=== PATIENT | female | born 1955 | race Hispanic/Latino ===

== ENCOUNTER 2019-04-13 12:03 | Inpatient (IN) | payer MEDICARE ==
[2019-04-13] MEDS ORDERED: MAGNESIUM SULFATE 2 GM/50 ML BAG IV ONE (12:57)
[2019-04-13] MEDS ORDERED: IPRATROPIUM 0.02% NEBU 2.5 ML IH ONE (12:57)
[2019-04-13] MEDS ORDERED: methylPREDNISolone Sod Succinate 125 MG/2 ML INJ IV ONE (12:57)
[2019-04-13] MEDS ORDERED: ALBUTEROL 2.5 MG/3 ML NEBU IH ONE ×2 (12:57→18:34)
--- NOTE | 2019-04-13 13:00 | Emergency Department Report ---
ED General Adult HPI - General Chief complaint: Dyspnea/Respdistress Stated complaint: JAY Time Seen by Provider: 04/13/19 12:43 Source: patient, EMS ( EMS documentation not available at time of chart dictation ), RN notes reviewed, old records reviewed Mode of arrival: Stretcher Limitations: Physical Limitation - History of Present Illness Initial comments: Pulmonology: Dr. Santoyo The patient is a 63-year-old female. She has a history of chronic respiratory failure. Her past medical history also includes mild coronary artery disease, demonstrated on 2014, chronic respiratory failure. She is brought to the hospital by parents medical services for painless worsening of shortness of breath. The patient reports that it feels like her COPD is being exacerbated. She denies physical pain. She requested to be transported to [facility], but was transported here by emergency medical services. The patient states that she had a near- experience of this hospital and that she does not want to be admitted to this hospital. She states that in the past she always goes to [facility]. Arterial blood gas demonstrated respiratory acidosis, hypercarbia, and hypoxemia. The patient gave verbal permission to discuss the details of her case with her son Shay De Los Santos Explained to patient and son that I would not deem the patient stable/suitable for medical transport at this time, as she is on positive pressure ventilation, and has a respiratory acidosis with hypercarbia. I advised both the patient and her son that we do have pulmonary and critical care consultative services available at this hospital, and that her pulmonology group does have privileges at this hospital. I further advised that there is no medical indication for transportation, and advised that the patient and her son that if they wanted to be discharged, they would have to be discharged AGAINST MEDICAL ADVICE, and be transferred to the aforementioned hospital by private vehicle. Patient and son both alert and oriented, sober, and exhibited decision making capacity at this time. Patient is able to endorse risks in her own words, and does not appear to be altered or obtunded. This conversation is witnessed by RT E[place] -: Gradual Improves with: rest Associated Symptoms: cough, shortness of breath, weakness - Related Data Home Medications Medication Instructions Recorded Confirmed Last Taken ALBUTEROL Inhaler (OR & NICU) 2 puff IH Q4H PRN 02/19/14 04/13/19 02/19/14 [ProAir HFA Inhaler] Albuterol Sulfate [Albuterol 0.63% 3 ml IH PRN PRN 02/19/14 04/13/19 07/12/14 NEBS] Aspirin [Aspirin BABY CHEW TAB] 81 mg PO DAILY 02/19/14 04/13/19 07/11/14 Atorvastatin (Nf) [Lipitor] 10 mg PO QHS 02/19/14 04/13/19 07/11/14 Budesoni/Formotero 160-4.5(Nf) 2 puff IH BID 02/19/14 04/13/19 02/19/14 [Symbicort 160-4.5 (Nf)] Metoprolol [Lopressor TAB] 1.5 tab PO BID 02/19/14 04/13/19 02/19/14 Mirtazapine 15 mg PO QHS 02/19/14 04/13/19 02/18/14 Multivitamin [Multi-Vitamin Daily] 1 tab PO DAILY 02/19/14 04/13/19 07/11/14 Celexa 40 mg PO DAILY 04/13/19 04/13/19 Unknown Thiamine 100 mg PO BID 04/13/19 04/13/19 Unknown guaiFENesin 1,200 mg PO BID 04/13/19 04/13/19 Unknown Allergies Allergy/AdvReac Type Severity Reaction Status Date / Time carisoprodol [From Soma] Allergy Rash Verified 07/12/14 18:17 ED Review of Systems ROS: Stated complaint: JAY Other details as noted in HPI Constitutional: malaise ENT: congestion Respiratory: cough, shortness of breath, wheezing Cardiovascular: denies: syncope Gastrointestinal: denies: abdominal pain Neurological: weakness Psychiatric: anxiety ED Past Medical Hx - Past Medical History Previous Medical History?: Yes Hx Hypertension: Yes Hx Heart Attack/AMI: No Hx Congestive Heart Failure: No Hx Diabetes: No Hx Deep Vein Thrombosis: No Hx Pulmonary Embolism: No Hx Asthma: Yes Hx COPD: Yes Hx Tuberculosis: No Hx HIV: No - Surgical History Past Surgical History?: Yes Hx Coronary Stent: No Hx Pacemaker: No Hx Internal Defibrillator: No Hx Cholecystectomy: Yes Hx Breast Surgery: Yes Additional Surgical History: hysterectomy - Social History Smoking Status: Never Smoker Substance Use Type: None - Medications Home Medications: Home Medications Medication Instructions Recorded Confirmed Last Taken Type ALBUTEROL Inhaler (OR & NICU) 2 puff IH Q4H PRN 02/19/14 04/13/19 02/19/14 History [ProAir HFA Inhaler] Albuterol Sulfate [Albuterol 0.63% 3 ml IH PRN PRN 02/19/14 04/13/19 07/12/14 History NEBS] Aspirin [Aspirin BABY CHEW TAB] 81 mg PO DAILY 02/19/14 04/13/19 07/11/14 History Atorvastatin (Nf) [Lipitor] 10 mg PO QHS 02/19/14 04/13/19 07/11/14 History Budesoni/Formotero 160-4.5(Nf) 2 puff IH BID 02/19/14 04/13/19 02/19/14 History [Symbicort 160-4.5 (Nf)] Metoprolol [Lopressor TAB] 1.5 tab PO BID 02/19/14 04/13/19 02/19/14 History Mirtazapine 15 mg PO QHS 02/19/14 04/13/19 02/18/14 History Multivitamin [Multi-Vitamin Daily] 1 tab PO DAILY 02/19/14 04/13/19 07/11/14 History Celexa 40 mg PO DAILY 04/13/19 04/13/19 Unknown History Thiamine 100 mg PO BID 04/13/19 04/13/19 Unknown History guaiFENesin 1,200 mg PO BID 04/13/19 04/13/19 Unknown History ED Physical Exam - General Limitations: Physical Limitation General appearance: alert, anxious, in distress, obese - Head Head exam: Present: atraumatic, normocephalic - Eye Eye exam: Present: normal appearance, EOMI Pupils: Absent: unequal - ENT ENT exam: Present: normal exam, normal orophraynx, mucous membranes moist, normal external ear exam - Neck Neck exam: Present: normal inspection, full ROM. Absent: tenderness, meningismus - Respiratory Respiratory exam: Present: respiratory distress, wheezes, rhonchi - Cardiovascular Cardiovascular Exam: Present: regular rate, normal rhythm, normal heart sounds. Absent: bradycardia, tachycardia, irregular rhythm, systolic murmur, diastolic murmur, rubs, gallop - GI/Abdominal GI/Abdominal exam: Present: soft. Absent: distended, tenderness, guarding, rebound, rigid, pulsatile mass - Extremities Exam Extremities exam: Present: normal inspection, full ROM, other (2+ pulses noted in the bilateral upper extremities. 2+ pulses noted in the bilateral lower extremities. There is no long bony tenderness. Muscular compartments are soft.). Absent: calf tenderness - Back Exam Back exam: Present: normal inspection. Absent: tenderness, CVA tenderness (R), CVA tenderness (L), paraspinal tenderness - Neurological Exam Neurological exam: Present: alert, oriented X3, other (there is no facial droop. The tongue is midline. The extraocular movements are intact bilaterally. There is 5 out of 5 strength in the bilateral upper and lower extremities.) - Psychiatric Psychiatric exam: Present: anxious - Skin Skin exam: Present: warm, dry, intact, normal color. Absent: rash ED Course Vital Signs 04/13/19 04/13/19 04/13/19 12: 12:27 12:56 Temperature 98.2 F Pulse Rate 96 H 92 H Pulse Rate [ Anterior Bilateral Throughout] Respiratory 16 28 H Rate Respiratory Rate [Anterior Bilateral Throughout] Blood Pressure 153/95 Blood Pressure 138/70 [Left] O2 Sat by Pulse 96 97 96 Oximetry 04/13/19 04/13/19 04/13/19 15:54 16:16 16:36 Temperature Pulse Rate 97 H 87 Pulse Rate [ Anterior Bilateral Throughout] Respiratory 16 19 Rate Respiratory Rate [Anterior Bilateral Throughout] Blood Pressure 134/63 116/67 Blood Pressure 125/76 [Left] O2 Sat by Pulse 96 96 95 Oximetry 04/13/19 04/13/19 04/13/19 16:45 17:00 17:15 Temperature Pulse Rate Pulse Rate [ Anterior Bilateral Throughout] Respiratory Rate Respiratory Rate [Anterior Bilateral Throughout] Blood Pressure 113/61 113/61 105/56 Blood Pressure [Left] O2 Sat by Pulse 97 95 97 Oximetry 04/13/19 04/13/19 04/13/19 17:22 17:30 17:45 Temperature Pulse Rate 95 H Pulse Rate [ Anterior Bilateral Throughout] Respiratory 16 Rate Respiratory Rate [Anterior Bilateral Throughout] Blood Pressure 105/56 133/63 Blood Pressure 105/56 [Left] O2 Sat by Pulse 96 95 96 Oximetry 04/13/19 04/13/19 04/13/19 18:00 18:15 18:30 Temperature Pulse Rate Pulse Rate [ Anterior Bilateral Throughout] Respiratory Rate Respiratory Rate [Anterior Bilateral Throughout] Blood Pressure 133/63 141/68 141/68 Blood Pressure [Left] O2 Sat by Pulse 96 97 98 Oximetry 04/13/19 04/13/19 04/13/19 18:33 18:46 19:00 Temperature Pulse Rate Pulse Rate [ 89 Anterior Bilateral Throughout] Respiratory Rate Respiratory 24 Rate [Anterior Bilateral Throughout] Blood Pressure 116/55 146/94 Blood Pressure [Left] O2 Sat by Pulse 95 96 Oximetry 04/13/19 04/13/19 04/13/19 19:15 19:21 19:30 Temperature Pulse Rate 85 Pulse Rate [ Anterior Bilateral Throughout] Respiratory 21 Rate Respiratory Rate [Anterior Bilateral Throughout] Blood Pressure 123/64 116/59 123/64 Blood Pressure [Left] O2 Sat by Pulse 97 97 97 Oximetry 04/13/19 04/13/19 04/13/19 19:45 20:00 20:15 Temperature Pulse Rate Pulse Rate [ Anterior Bilateral Throughout] Respiratory Rate Respiratory Rate [Anterior Bilateral Throughout] Blood Pressure 128/78 128/78 125/61 Blood Pressure [Left] O2 Sat by Pulse 96 96 98 Oximetry 04/13/19 04/13/19 04/13/19 20:36 20:46 21:00 Temperature Pulse Rate Pulse Rate [ Anterior Bilateral Throughout] Respiratory Rate Respiratory Rate [Anterior Bilateral Throughout] Blood Pressure 141/68 129/62 122/59 Blood Pressure [Left] O2 Sat by Pulse 99 97 97 Oximetry 04/13/19 04/13/19 04/13/19 21:15 21:30 21:40 Temperature Pulse Rate Pulse Rate [ Anterior Bilateral Throughout] Respiratory Rate Respiratory Rate [Anterior Bilateral Throughout] Blood Pressure 112/61 122/56 122/56 Blood Pressure [Left] O2 Sat by Pulse 97 98 99 Oximetry - Reevaluation(s) Reevaluation #1: 04/13/19 13:50 Differential diagnosis, including but not limited to: COPD, bronchitis, pneumonia, hypercapnic respiratory failure Assessment and plan: 63-year-old female with known chronic respiratory failure, with probable underlying exacerbation of her chronic medical conditions. She is afebrile and protecting her airway at this time. Patient alert and oriented, and exhibits decision-making capacity. We have strongly recommended admission to this hospital. We have strongly advised against transfer given need for positive pressure ventilation, and hypercarbia. Patient and son at this time have indicated that they will likely leave AGAINST MEDICAL ADVICE. Patient is amenable to BiPAP, albuterol, Atrovent, steroids, magnesium, EKG, chest x-ray, and screening laboratory studies. Reevaluation #2: 04/13/19 13:58 Extensive review discussion had with patient and son. They are now amenable to hospitalization at this facility. Reevaluation #3: 04/13/19 14:57 labs reviewed feels improved Dr Ford to admit - Consultations Consultation #1: 04/13/19 13:58 Dr Filomena Oliva to follow in consultation ED Medical Decision Making - Lab Data Result diagrams: 04/14/19 04:43 04/14/19 04:43 Vital Signs 04/13/19 04/13/19 12:19 12:27 Temperature 98.2 F Pulse Rate 96 H Respiratory 16 Rate Blood Pressure 138/70 [Left] O2 Sat by Pulse 96 97 Oximetry - Radiology Data Radiology results: image reviewed interpreted by me: xr chest within normal limits Critical Care Time: Yes Critical care time in (mins) excluding proc time.: 35 Critical care attestation.: If time is entered above; I have spent that time in minutes in the direct care of this critically ill patient, excluding procedure time. ED Disposition Clinical Impression: Acute hypercapnic respiratory failure Acute and chronic respiratory failure ([id number]) Qualifiers: Respiratory failure complication: unspecified whether with hypoxia or hypercapnia Qualified Code(s): J96.20 - Acute and chronic respiratory failure, unspecified whether with hypoxia or hypercapnia Disposition: -09 OP ADMIT IP TO THIS HOSP Is pt being admited?: Yes Condition: Serious
--- NOTE | 2019-04-13 13:56 | XRay Report ---
CHEST 1 VIEW INDICATION: Dyspnea. COMPARISON: None FINDINGS: Support devices: None. Heart: Within normal limits. Lungs/Pleura: No acute air space or interstitial disease. Additional findings: None. IMPRESSION: No acute findings. Signer Name: Cameron Marcum Jr, MD Signed: 04/13/2019 1:51 PM Workstation Name: [id number]
[2019-04-13] MEDS ORDERED: SODIUM CHLORIDE 0.9% 500 ML 500 ML IV ONE (13:57)
[2019-04-13 14:27] LABS: Hemoglobin 10.8 gm/dl (10.1-14.3); Mean Corpuscular HGB Conc 32 % (30-34); Mean Corpuscular Volume 85 fl (79-97); Platelet Count 275 K/mm3 (140-440); Red Blood Count 4.01 M/mm3 (3.65-5.03); Red Cell Distribution Width 16.9 % (13.2-15.2)
[2019-04-13 14:43] LABS: INR 0.92 (0.87-1.13)
[2019-04-13 14:45] LABS: Partial Thromboplastin Time 34.1 Sec. (24.2-36.6)
[2019-04-13 14:49] LABS: BUN/Creatinine Ratio 20; Blood Urea Nitrogen 16 mg/dL (7-17); Calcium 9.1 mg/dL (8.4-10.2); Hemolysis Index 1
[2019-04-13 14:57] LABS: Band Neutrophils # (Manual) 0.4 K/mm3; Total Cells Counted 100
[2019-04-13 14:58] LABS: Anisocytosis 1+; Platelet Estimate Consistent w Auto; Poikilocytosis 1+; Stomatocytes 1+
--- NOTE | 2019-04-13 15:01 | History and Physical Report ---
History of Present Illness Chief complaint: I cant breathe History of present illness: 63 YO Female with Obesity Hypoventilation, Chronic Respiratory Failure, CAD, HTN presents to ED for evaluation. Pt is currently on NIPPV at time of my exam and is unable to provide history. Pt is unable to speak in complete sentences, and is using accessory muscles to breathe. Pt son is at bedside and provides history. As per son, the patient has experienced shortness of breath over the past 3 days with progressively worsening symptoms over the same time frame. Pt son acknowledges increased nonproductive cough, increased nebulizer therapy without relief in symptoms. EMS notified, and upon arrival the patient was found to be in distress and transported to [facility]. Pt seen and evaluated in ED and found to have Acute on Chronic respiratory Failure suspected secondary to COPD exacerbation. Pt symptoms not improved with supplemental oxygen, and nebulizer therapy. Pt placed on NIPPV. Pt placed in observation status and admitted to IMCU. NO prior admission for review. All medication listed at time of admission has been reconciled. Past History Past Surgical History: cholecystectomy, hysterectomy, Other (Breast surgery) Social history: . denies: smoking, alcohol abuse, prescription drug abuse Family history: hypertension Medications and Allergies Allergies Allergy/AdvReac Type Severity Reaction Status Date / Time carisoprodol [From Soma] Allergy Rash Verified 07/12/14 18:17 Home Medications Medication Instructions Recorded Confirmed Last Taken Type ALBUTEROL Inhaler (OR & NICU) 2 puff IH Q4H PRN 02/19/14 04/13/19 02/19/14 History [ProAir HFA Inhaler] Albuterol Sulfate [Albuterol 0.63% 3 ml IH PRN PRN 02/19/14 04/13/19 07/12/14 History NEBS] Aspirin [Aspirin BABY CHEW TAB] 81 mg PO DAILY 02/19/14 04/13/19 07/11/14 History Atorvastatin (Nf) [Lipitor] 10 mg PO QHS 02/19/14 04/13/19 07/11/14 History Budesoni/Formotero 160-4.5(Nf) 2 puff IH BID 02/19/14 04/13/19 02/19/14 History [Symbicort 160-4.5 (Nf)] Metoprolol [Lopressor TAB] 1.5 tab PO BID 1004/13/19 02/19/14 History Mirtazapine 15 mg PO QHS 02/19/14 04/13/19 02/18/14 History Multivitamin [Multi-Vitamin Daily] 1 tab PO DAILY 02/19/14 04/13/19 07/11/14 History Celexa 40 mg PO DAILY 04/13/19 04/13/19 Unknown History Thiamine 100 mg PO BID 04/13/19 04/13/19 Unknown History guaiFENesin 1,200 mg PO BID 04/13/19 04/13/19 Unknown History Review of Systems Constitutional: no weight loss, no weight gain, no fever, no chills Ears, nose, mouth and throat: no ear pain, no ear discharge, no tinnitis, no decreased hearing, no nose pain, no nasal congestion Breasts: no change in shape, no swelling, no mass Cardiovascular: no chest pain, no orthopnea, no palpitations, no rapid/irregular heart beat, no edema Respiratory: cough, shortness of breath, no hemoptysis, no dyspnea on exertion, no wheezing Gastrointestinal: no nausea, no vomiting, no diarrhea, no constipation Genitourinary Female: no pelvic pain, no flank pain, no menorrhagia, no dysuria, no urinary frequency, no urgency Rectal: no pain, no incontinence, no bleeding Integumentary: no pruritis, no redness, no sores, no wounds, no jaundice Neurological: no transient paralysis, no weakness, no numbness Psychiatric: no anxiety, no memory loss, no sleep disturbances Endocrine: no cold intolerance, no heat intolerance, no excessive thirst, no polydipsia, no polyuria Hematologic/Lymphatic: no easy bruising, no easy bleeding, no lymphadenopathy, no lymphedema Allergic/Immunologic: no urticaria, no allergic rhinitis, no wheezing, no persistent infections, no angioedema Exam - Constitutional Vitals: Temp Pulse Resp BP Pulse Ox 98.2 F 92 H 28 H 153/95 96 04/13/19 12:19 04/13/19 12:56 04/13/19 12:56 04/13/19 12:56 04/13/19 12:56 General appearance: Present: mild distress, obese - EENT Eyes: Present: PERRL ENT: hearing intact, clear oral mucosa - Neck Neck: Present: supple, normal ROM - Respiratory Respiratory effort: normal Respiratory: bilateral: diminished, rhonchi - Cardiovascular Heart Sounds: Present: S1 & S2. Absent: rub, click - Extremities Extremities: pulses symmetrical, No edema Peripheral Pulses: within normal limits - Abdominal General gastrointestinal: Present: soft, non-tender, non-distended, normal bowel sounds Female genitourinary: Present: normal - Integumentary Integumentary: Present: clear, warm, dry - Musculoskeletal Musculoskeletal: gait normal, strength equal bilaterally - Psychiatric Psychiatric: appropriate mood/affect, intact judgment & insight - Neurologic Neurologic: CNII-XII intact, moves all extremities Results - Labs CBC & Chem 7: 04/13/19 14:10 04/13/19 14:10 Labs: Abnormal lab results 04/13/19 04/13/19 04/13/19 Range/Units 12:47 14:10 14:10 WBC 13.7 H (4.5-11.0) K/mm3 MCH 27 L (28-32) pg RDW 16.9 H (13.2-15.2) % Seg Neuts % (Manual) 88.0 H (40.0-70.0) % Lymphocytes % (Manual) 2.0 L (13.4-35.0) % Seg Neutrophils # Man 12.1 H (1.8-7.7) K/mm3 Lymphocytes # (Manual) 0.3 L (1.2-5.4) K/mm3 POC ABG pH 7.313 L (7.35-7.45) POC ABG pO2 70 L (80-105) Chloride 93.6 L (98-107) mmol/L Carbon Dioxide 33 H (22-30) mmol/L Glucose 182 H (65-100) mg/dL Magnesium 2.90 H (1.7-2.3) mg/dL Assessment and Plan - Patient Problems (1) Acute and chronic respiratory failure ([id number]) Current Visit: Yes Status: Acute Qualifiers: Respiratory failure complication: unspecified whether with hypoxia or hypercapnia Qualified Code(s): J96.20 - Acute and chronic respiratory failure, unspecified whether with hypoxia or hypercapnia Plan to address problem: Admit to IMCU, chest x ray, pulse oximetry, NIPPV, hold beta jose alberto therapy, nebulizer therapy, (2) COPD exacerbation Current Visit: Yes Status: Acute Plan to address problem: IV antibiotic therapy, IV steroid therapy, pulse oximetry, nebulizer therapy, (3) Obesity hypoventilation syndrome Current Visit: Yes Status: Acute Plan to address problem: Chest x ray, pulse oximetry, nebulizer therapy, balanced diet, increased physical activity at discharge. (4) HTN (hypertension) Current Visit: Yes Status: Acute Qualifiers: Hypertension type: essential hypertension Qualified Code(s): I10 - Essential (primary) hypertension Plan to address problem: Monitor bp q shift, continue medical management. (5) DVT prophylaxis Current Visit: No Status: Acute Plan to address problem: SCD to BLE while in bed, supportive care, prophylactic heparin
[2019-04-13] MEDS ORDERED: ALBUTEROL 2.5 MG/3 ML NEBU IH PRN (15:02)
[2019-04-13] MEDS ORDERED: BUDESONIDE 0.5 MG/2 ML NEBU IH ONE (15:28)
[2019-04-13] MEDS ORDERED: LORazepam 2 MG/ML VIAL ONE (16:05)
[2019-04-13] MEDS ORDERED: LORazepam 2 MG/ML VIAL IV ONE (16:10)
[2019-04-13 21:41] LABS: ABG Base Excess 9.1 mmol/L (-2.0-3.0); ABG HCO3 37.2 mmol/L (20.0-26.0); ABG Methemoglobin 0.6 % (0.0-1.5); ABG Oxygen Saturation 97.7 % (95.0-99.0); ABG PCO2 71.7 mm Hg; ABG PH 7.333 pH Units (7.350-7.450); ABG PO2 113.9 mm Hg (80.0-90.0)
[2019-04-13] MEDS ORDERED: GUAIFENESIN 1200 MG PO SCH (22:00)
[2019-04-13] MEDS ORDERED: NON-FORMULARY EACH (Budesoni/Formotero 160-4.5(Nf) 2 PUFF) IH SCH (22:00)
[2019-04-13] MEDS ORDERED: THIAMINE 100 MG PO SCH (22:00)
[2019-04-13] MEDS: guaiFENesin ER 600 MG TAB PO SCH (23:46)
[2019-04-13] MEDS: THIAMINE 100 MG TAB PO SCH (23:47)
[2019-04-13] MEDS: MIRTAZAPINE 15 MG TAB PO SCH (23:47)
[2019-04-13] MEDS: methylPREDNISolone Sod Succinate 40 MG/1 ML INJ IV SCH (23:47)
[2019-04-14] MEDS: ARFORMOTEROL 15 MCG/2 ML NEBU IH SCH ×3 (00:01→21:01)
[2019-04-14] MEDS: BUDESONIDE 0.5 MG/2 ML NEBU IH SCH ×3 (00:01→21:01)
[2019-04-14] MEDS: LORazepam 2 MG/ML VIAL IV PRN ×2 (00:27→15:29)
[2019-04-14 05:08] LABS: Hematocrit 31.1 % (30.3-42.9); Hemoglobin 10.1 gm/dl (10.1-14.3); Mean Corpuscular HGB Conc 32 % (30-34); Mean Corpuscular Volume 85 fl (79-97); Platelet Count 272 K/mm3 (140-440); Red Blood Count 3.67 M/mm3 (3.65-5.03); Red Cell Distribution Width 16.7 % (13.2-15.2)
[2019-04-14 05:22] LABS: BUN/Creatinine Ratio 22; Blood Urea Nitrogen 13 mg/dL (7-17); Calcium 8.6 mg/dL (8.4-10.2); Hemolysis Index 2
[2019-04-14 06:10] LABS: Basophils % (Manual) 0 % (0.0-1.8); Eosinophils % (Manual) 0 % (0.0-4.3); Monocytes % (Manual) 0 % (0.0-7.3); Total Cells Counted 100
[2019-04-14 06:11] LABS: Anisocytosis Few; Ovalocytes Few; Platelet Estimate Consistent w Auto; Stomatocytes 1+
[2019-04-14 06:12] LABS: ABG Base Excess 11.9 mmol/L (-2.0-3.0); ABG HCO3 39.7 mmol/L (20.0-26.0); ABG Methemoglobin 0.5 % (0.0-1.5); ABG PCO2 73.6 mm Hg; ABG PH 7.35 pH Units (7.350-7.450); ABG PO2 89.2 mm Hg (80.0-90.0)
[2019-04-14] MEDS: methylPREDNISolone Sod Succinate 40 MG/1 ML INJ IV SCH ×2 (09:53→21:49)
[2019-04-14] MEDS: MULTIVITAMINS ,THERAPEUTIC TAB PO SCH ×2 (09:53→10:15)
[2019-04-14] MEDS: THIAMINE 100 MG TAB PO SCH ×3 (09:53→21:50)
[2019-04-14] MEDS: CITALOPRAM 20 MG TAB PO SCH ×2 (09:54→10:15)
[2019-04-14] MEDS: ASPIRIN 81 MG TAB CHEW PO SCH ×2 (09:54→10:15)
[2019-04-14] MEDS: guaiFENesin ER 600 MG TAB PO SCH ×3 (09:54→21:45)
[2019-04-14] MEDS ORDERED: MULTIVITAMIN PO SCH (10:00)
[2019-04-14] MEDS ORDERED: CELEXA 40 MG PO SCH (10:00)
--- NOTE | 2019-04-14 13:22 | Progress Note ---
Assessment and Plan Assessment and plan: Acute on chronic hypoxic respiratory failure. Etiology secondary to COPD exacerbation, MEME and OHS. Continue BiPAP as clinically indicated. Pulmonary consultation pending. Follow-up ABG. Acute COPD exacerbation. IV antibiotic therapy, IV steroid therapy, pulse oximetry, nebulizer therapy Obesity hypoventilation syndrome. Hypertension. Continue antihypertensive medications. History Interval history: No new issues overnight. Patient requiring BiPAP. Hospitalist Physical - Constitutional Vitals: Temp Pulse Resp BP Pulse Ox 98.3 F 75 22 124/67 98 04/14/19 08:00 04/14/19 09:09 04/14/19 09:09 04/14/19 08:00 04/14/19 08:00 General appearance: Present: mild distress, obese - EENT Eyes: Present: PERRL, EOM intact ENT: hearing intact, clear oral mucosa, dentition normal - Neck Neck: Present: supple, normal ROM - Respiratory Respiratory effort: normal Respiratory: bilateral: diminished, rhonchi - Cardiovascular Rhythm: regular Heart Sounds: Present: S1 & S2. Absent: gallop, rub - Extremities Extremities: no ischemia, No edema, Full ROM - Abdominal General gastrointestinal: soft, non-tender, non-distended, normal bowel sounds - Integumentary Integumentary: Present: clear, warm, dry - Neurologic Neurologic: CNII-XII intact, moves all extremities Results - Labs CBC & Chem 7: 04/14/19 04:43 04/14/19 04:43 Labs: Laboratory Last Values WBC 7.8 K/mm3 (4.5-11.0) 04/14/19 04:43 RBC 3.67 M/mm3 (3.65-5.03) 04/14/19 04:43 Hgb 10.1 gm/dl (10.1-14.3) 04/14/19 04:43 Hct 31.1 % (30.3-42.9) 04/14/19 04:43 MCV 85 fl (79-97) 04/14/19 04:43 MCH 27 pg (28-32) L 04/14/19 04:43 MCHC 32 % (30-34) 04/14/19 04:43 RDW 16.7 % (13.2-15.2) H 04/14/19 04:43 Plt Count 272 K/mm3 (140-440) 04/14/19 04:43 Add Manual Diff Complete 04/14/19 04:43 Total Counted 100 04/14/19 04:43 Seg Neutrophils % Software Implementation Project Manager 04/14/19 04:43 Seg Neuts % (Manual) 97.0 % (40.0-70.0) H 04/14/19 04:43 Band Neutrophils % 0 % 04/14/19 04:43 Lymphocytes % (Manual) 1.0 % (13.4-35.0) L 04/14/19 04:43 Reactive Lymphs % (Man) 0 % 04/14/19 04:43 Monocytes % (Manual) 0 % (0.0-7.3) 04/14/19 04:43 Eosinophils % (Manual) 0 % (0.0-4.3) 04/14/19 04:43 Basophils % (Manual) 0 % (0.0-1.8) 04/14/19 04:43 Metamyelocytes % 2.0 % 04/14/19 04:43 Myelocytes % 0 % 04/14/19 04:43 Promyelocytes % 0 % 04/14/19 04:43 Blast Cells % 0 % 04/14/19 04:43 Nucleated RBC % Not Reportable 04/14/19 04:43 Seg Neutrophils # Man 7.6 K/mm3 (1.8-7.7) 04/14/19 04:43 Band Neutrophils # 0.0 K/mm3 04/14/19 04:43 Lymphocytes # (Manual) 0.1 K/mm3 (1.2-5.4) L 04/14/19 04:43 Abs React Lymphs (Man) 0.0 K/mm3 04/14/19 04:43 Monocytes # (Manual) 0.0 K/mm3 (0.0-0.8) 04/14/19 04:43 Eosinophils # (Manual) 0.0 K/mm3 (0.0-0.4) 04/14/19 04:43 Basophils # (Manual) 0.0 K/mm3 (0.0-0.1) 04/14/19 04:43 Metamyelocytes # 0.2 K/mm3 04/14/19 04:43 Myelocytes # 0.0 K/mm3 04/14/19 04:43 Promyelocytes # 0.0 K/mm3 04/14/19 04:43 Blast Cells # 0.0 K/mm3 04/14/19 04:43 WBC Morphology Not Reportable 04/14/19 04:43 Hypersegmented Neuts Not Reportable 04/14/19 04:43 Hyposegmented Neuts Not Reportable 04/14/19 04:43 Hypogranular Neuts Not Reportable 04/14/19 04:43 Smudge Cells Not Reportable 04/14/19 04:43 Toxic Granulation Not Reportable 04/14/19 04:43 Toxic Vacuolation Not Reportable 04/14/19 04:43 Dohle Bodies Not Reportable 04/14/19 04:43 Pelger-Huet Anomaly Not Reportable 04/14/19 04:43 Basilia Rods Not Reportable 04/14/19 04:43 Platelet Estimate Consistent w auto 04/14/19 04:43 Clumped Platelets Not Reportable 04/14/19 04:43 Plt Clumps, EDTA Not Reportable 04/14/19 04:43 Large Platelets Not Reportable 04/14/19 04:43 Giant Platelets Not Reportable 04/14/19 04:43 Platelet Satelliting Not Reportable 04/14/19 04:43 Plt Morphology Comment Not Reportable 04/14/19 04:43 RBC Morphology Not Reportable 04/14/19 04:43 Dimorphic RBCs Not Reportable 04/14/19 04:43 Polychromasia Not Reportable 04/14/19 04:43 Hypochromasia Not Reportable 04/14/19 04:43 Poikilocytosis Not Reportable 04/14/19 04:43 Anisocytosis Few 04/14/19 04:43 Microcytosis Not Reportable 04/14/19 04:43 Macrocytosis Not Reportable 04/14/19 04:43 Spherocytes Not Reportable 04/14/19 04:43 Pappenheimer Bodies Not Reportable 04/14/19 04:43 Sickle Cells Not Reportable 04/14/19 04:43 Target Cells Not Reportable 04/14/19 04:43 Tear Drop Cells Not Reportable 04/14/19 04:43 Ovalocytes Few 04/14/19 04:43 Stomatocytes 1+ 04/14/19 04:43 Helmet Cells Not Reportable 04/14/19 04:43 Paulson-Dryden Bodies Not Reportable 04/14/19 04:43 [place] Rings Not Reportable 04/14/19 04:43 Zachary Cells Not Reportable 04/14/19 04:43 Bite Cells Not Reportable 04/14/19 04:43 Crenated Cell Not Reportable 04/14/19 04:43 Elliptocytes Not Reportable 04/14/19 04:43 Acanthocytes (Spur) Not Reportable 04/14/19 04:43 Rouleaux Not Reportable 04/14/19 04:43 Hemoglobin C Crystals Not Reportable 04/14/19 04:43 Schistocytes Not Reportable 04/14/19 04:43 Malaria parasites Not Reportable 04/14/19 04:43 Ronak Bodies Not Reportable 04/14/19 04:43 Hem Pathologist Commnt No 04/14/19 04:43 PT 12.5 Sec. (12.2-14.9) 04/13/19 14:10 INR 0.92 (0.87-1.13) 04/13/19 14:10 APTT 34.1 Sec. (24.2-36.6) 04/13/19 14:10 POC ABG pH 7.400 (7.35-7.45) 04/14/19 12:35 ABG pH 7.350 pH Units (7.350-7.450) 04/14/19 05:45 POC ABG pCO2 69.3 (35-45) H 04/14/19 12:35 ABG pCO2 73.6 mm Hg 04/14/19 05:45 POC ABG pO2 99 (80-105) 04/14/19 12:35 ABG pO2 89.2 mm Hg (80.0-90.0) 04/14/19 05:45 POC ABG HCO3 42.9 (22-26 mml/L) 04/14/19 12:35 ABG HCO3 39.7 mmol/L (20.0-26.0) H 04/14/19 05:45 POC ABG Total CO2 45 (23-27mmol/L) 04/14/19 12:35 POC ABG O2 Sat 97 04/14/19 12:35 ABG O2 Saturation 97.0 % (95.0-99.0) 04/14/19 05:45 ABG O2 Content 13.2 (0.0-44) 04/14/19 05:45 POC ABG Base Excess 18 ((-2) - (+3)mmol/L) 04/14/19 12:35 ABG Base Excess 11.9 mmol/L (-2.0-3.0) H 04/14/19 05:45 ABG Hemoglobin 9.8 gm/dl (12.0-16.0) L 04/14/19 05:45 ABG Carboxyhemoglobin 1.8 % (0.0-5.0) 04/14/19 05:45 ABG Methemoglobin 0.5 % (0.0-1.5) 04/14/19 05:45 Oxyhemoglobin 94.8 % (95.0-99.0) L 04/14/19 05:45 FiO2 35 % 04/14/19 12:35 Sodium 140 mmol/L (137-145) 04/14/19 04:43 Potassium 5.1 mmol/L (3.6-5.0) H 04/14/19 04:43 Chloride 94.9 mmol/L (98-107) L 04/14/19 04:43 Carbon Dioxide 38 mmol/L (22-30) H 04/14/19 04:43 Anion Gap 12 mmol/L 04/14/19 04:43 BUN 13 mg/dL (7-17) 04/14/19 04:43 Creatinine 0.6 mg/dL (0.7-1.2) L 04/14/19 04:43 Estimated GFR > 60 ml/min 04/14/19 04:43 BUN/Creatinine Ratio 22 % 04/14/19 04:43 Glucose 177 mg/dL (65-100) H 04/14/19 04:43 Calcium 8.6 mg/dL (8.4-10.2) 04/14/19 04:43 Magnesium 2.90 mg/dL (1.7-2.3) H 04/13/19 14:10 Active Medications - Current Medications Current Medications: Generic Name Dose Route Start Last Admin Trade Name Freq PRN Reason Stop Dose Admin Albuterol 2.5 mg 04/13/19 15:02 04/13/19 18:32 Proventil IH 2.5 mg Q3HRT PRN Administration Shortness Of Breath Arformoterol Tartrate 15 mcg 04/13/19 20:00 04/14/19 09:08 Brovana Nebu IH 15 mcg Q12HRT NIYA Administration Aspirin 81 mg 04/14/19 10:00 04/14/19 10:15 Baby Aspirin PO Not Given DAILY NIYA Atorvastatin Calcium 10 mg 04/13/19 22:00 04/13/19 23:47 Atorvastatin PO 10 mg QHS NIYA Administration Budesonide 1 mg 04/13/19 23:55 04/14/19 09:08 Pulmicort IH 1 mg Q12HRT NIYA Administration Citalopram Hydrobromide 40 mg 04/14/19 10:00 04/14/19 10:15 Celexa PO Not Given QDAY NIYA Guaifenesin 1,200 mg 04/13/19 22:00 04/14/19 10:13 Mucinex Er PO Not Given BID [facility] Levofloxacin/Dextrose 500 mg in 100 mls @ 100 mls/hr 04/14/19 10:00 04/14/19 09:54 Levaquin 500mg/100ml IV 04/16/19 23:59 100 mls/hr Q24HR NIYA Administration Protocol Lorazepam 1 mg 04/13/19 17:41 04/14/19 00:27 Ativan IV 1 mg Q8H PRN Administration Anxiety Methylprednisolone Sodium Succinate 40 mg 04/13/19 22:00 04/14/19 09:53 Solu-Medrol IV 40 mg Q12HR NIYA Administration Mirtazapine 15 mg 04/13/19 22:00 04/13/19 23:47 Remeron PO 15 mg QHS NIYA Administration Multivitamins 1 each 04/14/19 10:00 04/14/19 10:15 Theragran Tab PO Not Given DAILY [facility] Sodium Chloride 10 ml 04/13/19 22:00 04/14/19 09:54 Sodium Chloride Flush Syringe 10 Ml IV 10 ml BID NIYA Administration Sodium Chloride 10 ml 04/13/19 15:02 Sodium Chloride Flush Syringe 10 Ml IV PRN PRN LINE FLUSH Thiamine HCl 100 mg 04/13/19 22:00 04/14/19 10:15 Vitamin B-1 PO Not Given BID [facility]
--- NOTE | 2019-04-14 14:55 | Consultation ---
History of Present Illness Consult date: 04/14/19 Requesting physician: DENISE GRAY Reason for consult: COPD, other (chronic hypercapnea respiratory failure) History of present illness: 63 y/o female, followed by Natanael admitted with chronic hypercapnic respiratory failure and worsening dyspnea. Denies any sick contacts. Has cough productive of yellow to greenish sputum. No fevers at home. Has not missed any medications. Remainder of the review is negative. Past History Past Medical History: COPD, hyperlipidemia, other (MEME) Past Surgical History: cholecystectomy, hysterectomy, Other (Breast surgery) Social history: . denies: smoking, alcohol abuse, prescription drug abuse Family history: hypertension Medications and Allergies Allergies Allergy/AdvReac Type Severity Reaction Status Date / Time carisoprodol [From Soma] Allergy Rash Verified 07/12/14 18:17 Home Medications Medication Instructions Recorded Confirmed Last Taken Type ALBUTEROL Inhaler (OR & NICU) 2 puff IH Q4H PRN 02/19/14 04/13/19 02/19/14 History [ProAir HFA Inhaler] Albuterol Sulfate [Albuterol 0.63% 3 ml IH PRN PRN 02/19/14 04/13/19 07/12/14 History NEBS] Aspirin [Aspirin BABY CHEW TAB] 81 mg PO DAILY 02/19/14 04/13/19 07/11/14 History Atorvastatin (Nf) [Lipitor] 10 mg PO QHS 02/19/14 04/13/19 07/11/14 History Budesoni/Formotero 160-4.5(Nf) 2 puff IH BID 02/19/14 04/13/19 02/19/14 History [Symbicort 160-4.5 (Nf)] Metoprolol [Lopressor TAB] 1.5 tab PO BID 02/19/14 04/13/19 02/19/14 History Mirtazapine 15 mg PO QHS 02/19/14 04/13/19 02/18/14 History Multivitamin [Multi-Vitamin Daily] 1 tab PO DAILY 02/19/14 04/13/19 07/11/14 H istory Celexa 40 mg PO DAILY 04/13/19 04/13/19 Unknown History Thiamine 100 mg PO BID 04/13/19 04/13/19 Unknown History guaiFENesin 1,200 mg PO BID 04/13/19 04/13/19 Unknown History Active Meds: Active Medications Albuterol (Proventil) 2.5 mg IH Q3HRT PRN PRN Reason: Shortness Of Breath Last Admin: 04/13/19 18:32 Dose: 2.5 mg Documented by: Arformoterol Tartrate (Brovana Nebu) 15 mcg IH Q12HRT [facility] Last Admin: 04/14/19 09:08 Dose: 15 mcg Documented by: Aspirin (Baby Aspirin) 81 mg PO DAILY [facility] Last Admin: 04/14/19 10:15 Dose: Not Given Documented by: Atorvastatin Calcium (Atorvastatin) 10 mg PO QHS [facility] Last Admin: 04/13/19 23:47 Dose: 10 mg Documented by: Budesonide (Pulmicort) 1 mg IH Q12HRT [facility] Last Admin: 04/14/19 09:08 Dose: 1 mg Documented by: Citalopram Hydrobromide (Celexa) 40 mg PO QDAY [facility] Last Admin: 04/14/19 10:15 Dose: Not Given Documented by: Guaifenesin (Mucinex Er) 1,200 mg PO BID [facility] Last Admin: 04/14/19 10:13 Dose: Not Given Documented by: Levofloxacin/Dextrose (Levaquin 500mg/100ml) 500 mg in 100 mls @ 100 mls/hr IV Q24HR [facility]; Protocol Stop: 04/16/19 23:59 Last Admin: 04/14/19 09:54 Dose: 100 mls/hr Documented by: Lorazepam (Ativan) 1 mg IV Q8H PRN PRN Reason: Anxiety Last Admin: 04/14/19 00:27 Dose: 1 mg Documented by: Methylprednisolone Sodium Succinate (Solu-Medrol) 40 mg IV Q12HR [facility] Last Admin: 04/14/19 09:53 Dose: 40 mg Documented by: Mirtazapine (Remeron) 15 mg PO QHS [facility] Last Admin: 04/13/19 23:47 Dose: 15 mg Documented by: Multivitamins (Theragran Tab) 1 each PO DAILY [facility] Last Admin: 04/14/19 10:15 Dose: Not Given Documented by: Sodium Chloride (Sodium Chloride Flush Syringe 10 Ml) 10 ml IV BID [facility] Last Admin: 04/14/19 09:54 Dose: 10 ml Documented by: Sodium Chloride (Sodium Chloride Flush Syringe 10 Ml) 10 ml IV PRN PRN PRN Reason: LINE FLUSH Thiamine HCl (Vitamin B-1) 100 mg PO BID NIYA Last Admin: 04/14/19 10:15 Dose: Not Given Documented by: Review of Systems All systems: negative Physical Examination Vital signs: Vital Signs Temp Pulse Resp BP Pulse Ox 98.2 F 96 H 16 138/70 96 04/13/19 12:19 04/13/19 12:19 04/13/19 12:04/13/19 12:04/13/19 12:19 General appearance: no acute distress, alert Eyes: non-icteric ENT: oropharynx moist Neck: supple Effort: normal Ascultation: Bilateral: diminished breath sounds, wheezes (scant but bilaterally) Percussion: Bilateral: not dull Tactile fremitus: Bilateral: normal Cardiovascular: regular rate and rhythm Gastrointestinal: soft Integumentary: normal Extremities: no edema, pink and warm, pulses normal normal mental status, non-focal exam Results - Laboratory Findings CBC and BMP: 04/14/19 04:43 04/14/19 04:43 ABG POC ABG pH 7.400 (7.35-7.45) 04/14/19 12:35 ABG pH 7.350 pH Units (7.350-7.450) 04/14/19 05:45 POC ABG pCO2 69.3 (35-45) H 04/14/19 12:35 ABG pCO2 73.6 mm Hg 04/14/19 05:45 POC ABG pO2 99 (80-105) 04/14/19 12:35 ABG pO2 89.2 mm Hg (80.0-90.0) 04/14/19 05:45 POC ABG HCO3 42.9 (22-26 mml/L) 04/14/19 12:35 POC ABG Total CO2 45 (23-27mmol/L) 04/14/19 12:35 POC ABG O2 Sat 97 04/14/19 12:35 ABG O2 Saturation 97.0 % (95.0-99.0) 04/14/19 05:45 PT/INR, D-dimer PT 12.5 Sec. (12.2-14.9) 04/13/19 14:10 INR 0.92 (0.87-1.13) 04/13/19 14:10 Abnormal lab findings: Abnormal Labs 04/13/19 04/13/19 04/13/19 12:47 14:10 14:10 WBC 13.7 H MCH 27 L RDW 16.9 H Seg Neuts % (Manual) 88.0 H Lymphocytes % (Manual) 2.0 L Seg Neutrophils # Man 12.1 H Lymphocytes # (Manual) 0.3 L POC ABG pH 7.313 L ABG pH POC ABG pCO2 POC ABG pO2 70 L ABG pO2 ABG HCO3 ABG Base Excess ABG Hemoglobin Oxyhemoglobin Potassium Chloride 93.6 L Carbon Dioxide 33 H Creatinine Glucose 182 H Magnesium 2.90 H 04/13/19 04/13/19 04/14/19 18:26 21:30 04:43 WBC MCH 27 L RDW 16.7 H Seg Neuts % (Manual) 97.0 H Lymphocytes % (Manual) 1.0 L Seg Neutrophils # Man Lymphocytes # (Manual) 0.1 L POC ABG pH 7.298 L ABG pH 7.333 L POC ABG pCO2 POC ABG pO2 61 L ABG pO2 113.9 H ABG HCO3 37.2 H ABG Base Excess 9.1 H ABG Hemoglobin 11.1 L Oxyhemoglobin Potassium Chloride Carbon Dioxide Creatinine Glucose Magnesium 04/14/19 04/14/19 04/14/19 04:43 05:45 12:35 WBC MCH RDW Seg Neuts % (Manual) Lymphocytes % (Manual) Seg Neutrophils # Man Lymphocytes # (Manual) POC ABG pH ABG pH POC ABG pCO2 69.3 H POC ABG pO2 ABG pO2 ABG HCO3 39.7 H ABG Base Excess 11.9 H ABG Hemoglobin 9.8 L Oxyhemoglobin 94.8 L Potassium 5.1 H Chloride 94.9 L Carbon Dioxide 38 H Creatinine 0.6 L Glucose 177 H Magnesium - Diagnostic Findings Chest x-ray: image reviewed (chronic changes, nothing acute) Assessment and Plan 63 y/o female with chronic respiratory hypercapnic respiratory failure with worsening dyspnea, most likely secondary to acute bronchitis 1. Change levaquin to PO and treat for a total of 7 days 2. Suggest changing steroids to 60mg PO daily and taper over the next 10-12 days 3. Continue PPV at night and when sleeping (PRN) 4. Resume home COPD regimen. 5. Should be ready for discharge in the next 18-24 hours.
[2019-04-14] MEDS: MIRTAZAPINE 15 MG TAB PO SCH (21:48)
[2019-04-15 05:19] LABS: Hematocrit 33.1 % (30.3-42.9); Hemoglobin 10.6 gm/dl (10.1-14.3); Mean Corpuscular HGB Conc 32 % (30-34); Mean Corpuscular Volume 85 fl (79-97); Platelet Count 293 K/mm3 (140-440); Red Blood Count 3.92 M/mm3 (3.65-5.03); Red Cell Distribution Width 16.8 % (13.2-15.2)
[2019-04-15 05:38] LABS: BUN/Creatinine Ratio 30; Blood Urea Nitrogen 24 mg/dL (7-17); Calcium 8.6 mg/dL (8.4-10.2); Hemolysis Index 3
[2019-04-15 06:11] LABS: Anisocytosis Few; Basophils % (Manual) 0 % (0.0-1.8); Eosinophils % (Manual) 0 % (0.0-4.3); Stomatocytes 1+; Total Cells Counted 100
[2019-04-15 06:12] LABS: Tear Drop Cells Rare
[2019-04-15 06:16] LABS: Platelet Estimate Consistent w Auto
[2019-04-15] MEDS: BUDESONIDE 0.5 MG/2 ML NEBU IH SCH ×2 (08:50→20:26)
[2019-04-15] MEDS: ARFORMOTEROL 15 MCG/2 ML NEBU IH SCH ×2 (08:50→20:26)
[2019-04-15] MEDS: ASPIRIN 81 MG TAB CHEW PO SCH (09:23)
[2019-04-15] MEDS: guaiFENesin ER 600 MG TAB PO SCH ×2 (09:23→21:01)
[2019-04-15] MEDS: MULTIVITAMINS ,THERAPEUTIC TAB PO SCH (09:24)
[2019-04-15] MEDS: THIAMINE 100 MG TAB PO SCH ×2 (09:24→21:01)
[2019-04-15] MEDS: CITALOPRAM 20 MG TAB PO SCH (09:24)
[2019-04-15] MEDS: LORazepam 2 MG/ML VIAL IV PRN ×2 (09:25→20:54)
[2019-04-15] MEDS: methylPREDNISolone Sod Succinate 40 MG/1 ML INJ IV SCH ×2 (09:25→21:02)
--- NOTE | 2019-04-15 11:30 | Progress Note ---
Assessment and Plan Assessment and plan: Acute on chronic hypoxic respiratory failure. Etiology secondary to COPD exacerbation, MEME and OHS. Continue BiPAP as clinically indicated. Keep nothing by mouth for now. Pulmonary consultation pending. Follow-up ABG. Steroid taper per pulmonary. Acute COPD exacerbation. IV antibiotic therapy, IV steroid therapy, pulse oximetry, nebulizer therapy Acute bronchitis. Continue Levaquin. Obesity hypoventilation syndrome. Hypertension. Continue antihypertensive medications. History Interval history: No new issues overnight. Patient requiring BiPAP. Patient with tachycardia(150s) and desaturation (50s) when BiPAP was taken off to allow the patient to eat. Hospitalist Physical - Constitutional Vitals: Temp Pulse Resp BP Pulse Ox 97.9 F 151 H 16 120/57 85 04/15/19 07:47 04/15/19 09:10 04/15/19 09:10 04/15/19 08:51 04/15/19 09:10 General appearance: Present: mild distress, obese - EENT Eyes: Present: PERRL, EOM intact ENT: hearing intact, clear oral mucosa, dentition normal - Neck Neck: Present: supple, normal ROM - Respiratory Respiratory effort: normal Respiratory: bilateral: CTA - Cardiovascular Rhythm: regular Heart Sounds: Present: S1 & S2. Absent: gallop, rub - Extremities Extremities: no ischemia, No edema, Full ROM - Abdominal General gastrointestinal: soft, non-tender, non-distended, normal bowel sounds - Integumentary Integumentary: Present: clear, warm, dry - Neurologic Neurologic: CNII-XII intact, moves all extremities Results - Labs CBC & Chem 7: 04/15/19 04:57 04/15/19 04:57 Labs: Laboratory Last Values WBC 9.8 K/mm3 (4.5-11.0) 04/15/19 04:57 RBC 3.92 M/mm3 (3.65-5.03) 04/15/19 04:57 Hgb 10.6 gm/dl (10.1-14.3) 04/15/19 04:57 Hct 33.1 % (30.3-42.9) 04/15/19 04:57 MCV 85 fl (79-97) 04/15/19 04:57 MCH 27 pg (28-32) L 04/15/19 04:57 MCHC 32 % (30-34) 04/15/19 04:57 RDW 16.8 % (13.2-15.2) H 04/15/19 04:57 Plt Count 293 K/mm3 (140-440) 04/15/19 04:57 Add Manual Diff Complete 04/15/19 04:57 Total Counted 100 04/15/19 04:57 Seg Neutrophils % Janitor Cleaner 04/15/19 04:57 Seg Neuts % (Manual) 87.0 % (40.0-70.0) H 04/15/19 04:57 Band Neutrophils % 0 % 04/15/19 04:57 Lymphocytes % (Manual) 10.0 % (13.4-35.0) L 04/15/19 04:57 Reactive Lymphs % (Man) 0 % 04/15/19 04:57 Monocytes % (Manual) 2.0 % (0.0-7.3) 04/15/19 04:57 Eosinophils % (Manual) 0 % (0.0-4.3) 04/15/19 04:57 Basophils % (Manual) 0 % (0.0-1.8) 04/15/19 04:57 Metamyelocytes % 1.0 % 04/15/19 04:57 Myelocytes % 0 % 04/15/19 04:57 Promyelocytes % 0 % 04/15/19 04:57 Blast Cells % 0 % 04/15/19 04:57 Nucleated RBC % Not Reportable 04/15/19 04:57 Seg Neutrophils # Man 8.5 K/mm3 (1.8-7.7) H 04/15/19 04:57 Band Neutrophils # 0.0 K/mm3 04/15/19 04:57 Lymphocytes # (Manual) 1.0 K/mm3 (1.2-5.4) L 04/15/19 04:57 Abs React Lymphs (Man) 0.0 K/mm3 04/15/19 04:57 Monocytes # (Manual) 0.2 K/mm3 (0.0-0.8) 04/15/19 04:57 Eosinophils # (Manual) 0.0 K/mm3 (0.0-0.4) 04/15/19 04:57 Basophils # (Manual) 0.0 K/mm3 (0.0-0.1) 04/15/19 04:57 Metamyelocytes # 0.1 K/mm3 04/15/19 04:57 Myelocytes # 0.0 K/mm3 04/15/19 04:57 Promyelocytes # 0.0 K/mm3 04/15/19 04:57 Blast Cells # 0.0 K/mm3 04/15/19 04:57 WBC Morphology Not Reportable 04/15/19 04:57 Hypersegmented Neuts Not Reportable 04/15/19 04:57 Hyposegmented Neuts Not Reportable 04/15/19 04:57 Hypogranular Neuts Not Reportable 04/15/19 04:57 Smudge Cells Not Reportable 04/15/19 04:57 Toxic Granulation Not Reportable 04/15/19 04:57 Toxic Vacuolation Not Reportable 04/15/19 04:57 Dohle Bodies Not Reportable 04/15/19 04:57 Pelger-Huet Anomaly Not Reportable 04/15/19 04:57 Basilia Rods Not Reportable 04/15/19 04:57 Platelet Estimate Consistent w auto 04/15/19 04:57 Clumped Platelets Not Reportable 04/15/19 04:57 Plt Clumps, EDTA Not Reportable 04/15/19 04:57 Large Platelets Not Reportable 04/15/19 04:57 Giant Platelets Not Reportable 04/15/19 04:57 Platelet Satelliting Not Reportable 04/15/19 04:57 Plt Morphology Comment Not Reportable 04/15/19 04:57 RBC Morphology Not Reportable 04/15/19 04:57 Dimorphic RBCs Not Reportable 04/15/19 04:57 Polychromasia Not Reportable 04/15/19 04:57 Hypochromasia Not Reportable 04/15/19 04:57 Poikilocytosis Not Reportable 04/15/19 04:57 Anisocytosis Few 04/15/19 04:57 Microcytosis Not Reportable 04/15/19 04:57 Macrocytosis Not Reportable 04/15/19 04:57 Spherocytes Not Reportable 04/15/19 04:57 Pappenheimer Bodies Not Reportable 04/15/19 04:57 Sickle Cells Not Reportable 04/15/19 04:57 Target Cells Not Reportable 04/15/19 04:57 Tear Drop Cells Rare 04/15/19 04:57 Ovalocytes Not Reportable 04/15/19 04:57 Stomatocytes 1+ 04/15/19 04:57 Helmet Cells Not Reportable 04/15/19 04:57 [place] Bodies Not Reportable 04/15/19 04:57 [place] Rings Not Reportable 04/15/19 04:57 Zachary Cells Not Reportable 04/15/19 04:57 Bite Cells Not Reportable 04/15/19 04:57 Crenated Cell Not Reportable 04/15/19 04:57 Elliptocytes Not Reportable 04/15/19 04:57 Acanthocytes (Spur) Not Reportable 04/15/19 04:57 Rouleaux Not Reportable 04/15/19 04:57 Hemoglobin C Crystals Not Reportable 04/15/19 04:57 Schistocytes Not Reportable 04/15/19 04:57 Malaria parasites Not Reportable 04/15/19 04:57 Ronak Bodies Not Reportable 04/15/19 04:57 Hem Pathologist Commnt No 04/15/19 04:57 PT 12.5 Sec. (12.2-14.9) 04/13/19 14:10 INR 0.92 (0.87-1.13) 04/13/19 14:10 APTT 34.1 Sec. (24.2-36.6) 04/13/19 14:10 POC ABG pH 7.400 (7.35-7.45) 04/14/19 12:35 ABG pH 7.350 pH Units (7.350-7.450) 04/14/19 05:45 POC ABG pCO2 69.3 (35-45) H 04/14/19 12:35 ABG pCO2 73.6 mm Hg 04/14/19 05:45 POC ABG pO2 99 (80-105) 04/14/19 12:35 ABG pO2 89.2 mm Hg (80.0-90.0) 04/14/19 05:45 POC ABG HCO3 42.9 (22-26 mml/L) 04/14/19 12:35 ABG HCO3 39.7 mmol/L (20.0-26.0) H 04/14/19 05:45 POC ABG Total CO2 45 (23-27mmol/L) 04/14/19 12:35 POC ABG O2 Sat 97 04/14/19 12:35 ABG O2 Saturation 97.0 % (95.0-99.0) 04/14/19 05:45 ABG O2 Content 13.2 (0.0-44) 04/14/19 05:45 POC ABG Base Excess 18 ((-2) - (+3)mmol/L) 04/14/19 12:35 ABG Base Excess 11.9 mmol/L (-2.0-3.0) H 04/14/19 05:45 ABG Hemoglobin 9.8 gm/dl (12.0-16.0) L 04/14/19 05:45 ABG Carboxyhemoglobin 1.8 % (0.0-5.0) 04/14/19 05:45 ABG Methemoglobin 0.5 % (0.0-1.5) 04/14/19 05:45 Oxyhemoglobin 94.8 % (95.0-99.0) L 04/14/19 05:45 FiO2 35 % 04/14/19 12:35 Sodium 140 mmol/L (137-145) 04/15/19 04:57 Potassium 4.7 mmol/L (3.6-5.0) 04/15/19 04:57 Chloride 93.4 mmol/L (98-107) L 04/15/19 04:57 Carbon Dioxide 35 mmol/L (22-30) H 04/15/19 04:57 Anion Gap 16 mmol/L 04/15/19 04:57 BUN 24 mg/dL (7-17) H 04/15/19 04:57 Creatinine 0.8 mg/dL (0.7-1.2) 04/15/19 04:57 Estimated GFR > 60 ml/min 04/15/19 04:57 BUN/Creatinine Ratio 30 % 04/15/19 04:57 Glucose 205 mg/dL (65-100) H 04/15/19 04:57 POC Glucose 192 (70-105) H 04/15/19 07:44 Calcium 8.6 mg/dL (8.4-10.2) 04/15/19 04:57 Magnesium 2.90 mg/dL (1.7-2.3) H 04/13/19 14:10 Active Medications - Current Medications Current Medications: Generic Name Dose Route Start Last Admin Trade Name Freq PRN Reason Stop Dose Admin Albuterol 2.5 mg 04/13/19 15:02 04/13/19 18:32 Proventil IH 2.5 mg Q3HRT PRN Administration Shortness Of Breath Arformoterol Tartrate 15 mcg 04/13/19 20:00 04/15/19 08:50 Savage Baezu IH 15 mcg Q12HRT NIYA Administration Aspirin 81 mg 04/14/19 10:00 04/15/19 09:23 Baby Aspirin PO 81 mg DAILY NIYA Administration Atorvastatin Calcium 10 mg 04/13/19 22:00 04/14/19 21:45 Atorvastatin PO 10 mg QHS NIYA Administration Budesonide 1 mg 04/13/19 23:55 04/15/19 08:50 Pulmicort IH 1 mg Q12HRT NIYA Administration Citalopram Hydrobromide 40 mg 04/14/19 10:00 04/15/19 09:24 Celexa PO 40 mg QDAY NIYA Administration Guaifenesin 1,200 mg 04/13/19 22:00 04/15/19 09:23 Mucinex Er PO 1,200 mg BID NIYA Administration Levofloxacin/Dextrose 500 mg in 100 mls @ 100 mls/hr 04/14/19 10:00 04/15/19 09:25 Levaquin 500mg/100ml IV 04/16/19 23:59 100 mls/hr Q24HR NIYA Administration Protocol Lorazepam 1 mg 04/13/19 17:41 04/15/19 09:25 Ativan IV 1 mg Q8H PRN Administration Anxiety Methylprednisolone Sodium Succinate 40 mg 04/13/19 22:00 04/15/19 09:25 Solu-Medrol IV 40 mg Q12HR NIYA Administration Mirtazapine 15 mg 04/13/19 22:00 04/14/19 21:48 Remeron PO 15 mg QHS NIYA Administration Multivitamins 1 each 04/14/19 10:00 04/15/19 09:24 Theragran Tab PO 1 each DAILY NIYA Administration Sodium Chloride 10 ml 04/13/19 22:00 04/15/19 09:27 Sodium Chloride Flush Syringe 10 Ml IV 10 ml BID NIYA Administration Sodium Chloride 10 ml 04/13/19 15:02 Sodium Chloride Flush Syringe 10 Ml IV PRN PRN LINE FLUSH Thiamine HCl 100 mg 04/13/19 22:00 04/15/19 09:24 Vitamin B-1 PO 100 mg BID NIYA Administration
[2019-04-15] MEDS: MIRTAZAPINE 15 MG TAB PO SCH (21:01)
[2019-04-15] MEDS: ENOXAPARIN 40 MG/0.4 ML INJ SUB-Q SCH (23:00)
--- NOTE | 2019-04-15 23:03 | Progress Note ---
Assessment and Plan Imp: 1. Centrilobular emphysema, very severe 2. COPD exac. 3. Acute bronchitis 4. A/C respiratory failure, hypoxia/hypercapnea 5. Hyperkalemia, better Rec: 1. Pt. worse today; increase Solumedrol; add Duonebs QID; cont. Levaquin x 5-7 days; cont. Pulmicort/Brovana 2. Add DVT PPx 3. Wean off BIPAP as able; pt. has NIV (Trilogy) unit at home 4. Complex decision-making Plan of care reviewed with patient, she understands/agrees Subjective Date of service: 04/15/19 Principal diagnosis: COPD Interval history: No events. Awake, alert. SOB and wheezing are worse today and she has been largely BIPAP dependent. Minimal cough. No chest pain. Active Medications Albuterol (Proventil) 2.5 mg IH Q3HRT PRN PRN Reason: Shortness Of Breath Last Admin: 04/13/19 18:32 Dose: 2.5 mg Documented by: Albuterol/Ipratropium (Duoneb *Not For Prn Use*) 1 ampul IH QIDRT [facility] Arformoterol Tartrate (Brovana Nebu) 15 mcg IH Q12HRT [facility] Last Admin: 04/15/19 20:26 Dose: 15 mcg Documented by: Aspirin (Baby Aspirin) 81 mg PO DAILY [facility] Last Admin: 04/15/19 09:23 Dose: 81 mg Documented by: Atorvastatin Calcium (Atorvastatin) 10 mg PO QHS [facility] Last Admin: 04/15/19 21:01 Dose: 10 mg Documented by: Budesonide (Pulmicort) 1 mg IH Q12HRT [facility] Last Admin: 04/15/19 20:26 Dose: 1 mg Documented by: Citalopram Hydrobromide (Celexa) 40 mg PO QDAY [facility] Last Admin: 04/15/19 09:24 Dose: 40 mg Documented by: Enoxaparin Sodium (Enoxaparin) 40 mg SUB-Q QDAY@2200 [facility] Guaifenesin (Mucinex Er) 1,200 mg PO BID [facility] Last Admin: 04/15/19 21:01 Dose: 1,200 mg Documented by: Levofloxacin/Dextrose (Levaquin 500mg/100ml) 500 mg in 100 mls @ 100 mls/hr IV Q24HR [facility]; Protocol Stop: 04/16/19 23:59 Last Admin: 04/15/19 09:25 Dose: 100 mls/hr Documented by: Lorazepam (Ativan) 1 mg IV Q8H PRN PRN Reason: Anxiety Last Admin: 04/15/19 20:54 Dose: 1 mg Documented by: Methylprednisolone Sodium Succinate (Solu-Medrol) 80 mg IV Q8HR [facility] Mirtazapine (Remeron) 15 mg PO QHS [facility] Last Admin: 04/15/19 21:01 Dose: 15 mg Documented by: Multivitamins (Theragran Tab) 1 each PO DAILY [facility] Last Admin: 04/15/19 09:24 Dose: 1 each Documented by: Sodium Chloride (Sodium Chloride Flush Syringe 10 Ml) 10 ml IV BID [facility] Last Admin: 04/15/19 21:02 Dose: 10 ml Documented by: Sodium Chloride (Sodium Chloride Flush Syringe 10 Ml) 10 ml IV PRN PRN PRN Reason: LINE FLUSH Thiamine HCl (Vitamin B-1) 100 mg PO BID [facility] Last Admin: 04/15/19 21:01 Dose: 100 mg Documented by: Objective Vital Signs - 12hr 04/15/19 04/15/19 04/15/19 11:01 12:01 13:00 Temperature Pulse Rate 109 H 89 83 Pulse Rate [ Anterior Bilateral Throughout] Pulse Rate [ From Monitor] Respiratory 21 15 16 Rate Respiratory Rate [Anterior Bilateral Throughout] Blood Pressure 120/57 120/57 120/57 O2 Sat by Pulse 98 95 97 Oximetry 04/15/19 04/15/19 04/15/19 14:01 15:01 16:01 Temperature Pulse Rate 80 78 120 H Pulse Rate [ Anterior Bilateral Throughout] Pulse Rate [ From Monitor] Respiratory 20 14 27 H Rate Respiratory Rate [Anterior Bilateral Throughout] Blood Pressure 125/61 125/61 O2 Sat by Pulse 96 97 95 Oximetry 04/15/19 04/15/19 04/15/19 17:01 18:01 19:00 Temperature Pulse Rate 88 76 110 H Pulse Rate [ Anterior Bilateral Throughout] Pulse Rate [ From Monitor] Respiratory 17 13 17 Rate Respiratory Rate [Anterior Bilateral Throughout] Blood Pressure 125/61 125/61 125/61 O2 Sat by Pulse 98 99 93 Oximetry 04/15/19 04/15/19 04/15/19 19:21 19:34 20:00 Temperature 98.3 F Pulse Rate 110 H 96 H Pulse Rate [ Anterior Bilateral Throughout] Pulse Rate [ 99 H From Monitor] Respiratory 22 23 Rate Respiratory Rate [Anterior Bilateral Throughout] Blood Pressure 136/66 O2 Sat by Pulse 97 98 Oximetry 04/15/19 04/15/19 04/15/19 20:19 20:39 21:00 Temperature Pulse Rate 106 H 122 H Pulse Rate [ 110 H Anterior Bilateral Throughout] Pulse Rate [ From Monitor] Respiratory 18 20 Rate Respiratory 18 Rate [Anterior Bilateral Throughout] Blood Pressure 123/57 117/63 O2 Sat by Pulse 97 96 Oximetry Constitutional: no acute distress, alert Eyes: non-icteric ENT: oropharynx moist Neck: supple Effort: mildly labored Ascultation: Bilateral: wheezes Percussion: Bilateral: not dull Tactile fremitus: Bilateral: normal Cardiovascular: regular rate and rhythm (no mrg) Gastrointestinal: normoactive bowel sounds, soft, non-tender, non-distended Integumentary: normal Extremities: no edema, pink and warm, pulses normal Neurologic: normal mental status, non-focal exam, pupils equal and round, CN II- XII normal Psychiatric: mood appropriate, affect normal CBC and BMP: 04/15/19 04:57 04/15/19 04:57 ABG, PT/INR, D-dimer: ABG POC ABG pH 7.387 (7.35-7.45) 04/15/19 11:19 ABG pH 7.350 pH Units (7.350-7.450) 04/14/19 05:45 POC ABG pCO2 69.5 (35-45) H 04/15/19 11: ABG pCO2 73.6 mm Hg 04/14/19 05:45 POC ABG pO2 77 (80-105) L 04/15/19 11:19 ABG pO2 89.2 mm Hg (80.0-90.0) 04/14/19 05:45 POC ABG HCO3 41.8 (22-26 mml/L) 04/15/19 11:19 POC ABG Total CO2 44 (23-27mmol/L) 04/15/19 11:19 POC ABG O2 Sat 94 04/15/19 11:19 ABG O2 Saturation 97.0 % (95.0-99.0) 04/14/19 05:45 PT/INR, D-dimer PT 12.5 Sec. (12.2-14.9) 04/13/19 14:10 INR 0.92 (0.87-1.13) 04/13/19 14:10 Abnormal lab findings: Abnormal Labs 04/13/19 04/13/19 04/13/19 12:47 14:10 14:10 WBC 13.7 H MCH 27 L RDW 16.9 H Seg Neuts % (Manual) 88.0 H Lymphocytes % (Manual) 2.0 L Seg Neutrophils # Man 12.1 H Lymphocytes # (Manual) 0.3 L POC ABG pH 7.313 L ABG pH POC ABG pCO2 POC ABG pO2 70 L ABG pO2 ABG HCO3 ABG Base Excess ABG Hemoglobin Oxyhemoglobin Potassium Chloride 93.6 L Carbon Dioxide 33 H BUN Creatinine Glucose 182 H POC Glucose Magnesium 2.90 H 04/13/19 04/13/19 04/14/19 18:26 21:30 04:43 WBC MCH 27 L RDW 16.7 H Seg Neuts % (Manual) 97.0 H Lymphocytes % (Manual) 1.0 L Seg Neutrophils # Man Lymphocytes # (Manual) 0.1 L POC ABG pH 7.298 L ABG pH 7.333 L POC ABG pCO2 POC ABG pO2 61 L ABG pO2 113.9 H ABG HCO3 37.2 H ABG Base Excess 9.1 H ABG Hemoglobin 11.1 L Oxyhemoglobin Potassium Chloride Carbon Dioxide BUN Creatinine Glucose POC Glucose Magnesium 04/14/19 04/14/19 04/14/19 04:43 05:45 12:35 WBC MCH RDW Seg Neuts % (Manual) Lymphocytes % (Manual) Seg Neutrophils # Man Lymphocytes # (Manual) POC ABG pH ABG pH POC ABG pCO2 69.3 H POC ABG pO2 ABG pO2 ABG HCO3 39.7 H ABG Base Excess 11.9 H ABG Hemoglobin 9.8 L Oxyhemoglobin 94.8 L Potassium 5.1 H Chloride 94.9 L Carbon Dioxide 38 H BUN Creatinine 0.6 L Glucose 177 H POC Glucose Magnesium 04/15/19 04/15/19 04/15/19 04:57 04:57 07:44 WBC MCH 27 L RDW 16.8 H Seg Neuts % (Manual) 87.0 H Lymphocytes % (Manual) 10.0 L Seg Neutrophils # Man 8.5 H Lymphocytes # (Manual) 1.0 L POC ABG pH ABG pH POC ABG pCO2 POC ABG pO2 ABG pO2 ABG HCO3 ABG Base Excess ABG Hemoglobin Oxyhemoglobin Potassium Chloride 93.4 L Carbon Dioxide 35 H BUN 24 H Creatinine Glucose 205 H POC Glucose 192 H Magnesium 04/15/19 04/15/19 04/15/19 10:32 11:19 16:15 WBC MCH RDW Seg Neuts % (Manual) Lymphocytes % (Manual) Seg Neutrophils # Man Lymphocytes # (Manual) POC ABG pH ABG pH POC ABG pCO2 69.5 H POC ABG pO2 77 L ABG pO2 ABG HCO3 ABG Base Excess ABG Hemoglobin Oxyhemoglobin Potassium Chloride Carbon Dioxide BUN Creatinine Glucose POC Glucose 251 H 185 H Magnesium 04/15/19 22:18 WBC MCH RDW Seg Neuts % (Manual) Lymphocytes % (Manual) Seg Neutrophils # Man Lymphocytes # (Manual) POC ABG pH ABG pH POC ABG pCO2 POC ABG pO2 ABG pO2 ABG HCO3 ABG Base Excess ABG Hemoglobin Oxyhemoglobin Potassium Chloride Carbon Dioxide BUN Creatinine Glucose POC Glucose 223 H Magnesium Chest x-ray: report reviewed, image reviewed (no acute findings)
[2019-04-16] MEDS: methylPREDNISolone Sod Succinate 40 MG/1 ML INJ IV SCH ×3 (05:00→21:39)
[2019-04-16 05:44] LABS: Hematocrit 33.9 % (30.3-42.9); Mean Corpuscular HGB Conc 32 % (30-34); Mean Corpuscular Volume 84 fl (79-97); Platelet Count 306 K/mm3 (140-440); Red Blood Count 4.02 M/mm3 (3.65-5.03); Red Cell Distribution Width 17.1 % (13.2-15.2)
[2019-04-16 05:53] LABS: BUN/Creatinine Ratio 42; Blood Urea Nitrogen 25 mg/dL (7-17); Calcium 8.7 mg/dL (8.4-10.2); Hemolysis Index 8
[2019-04-16 07:01] LABS: Basophils % (Manual) 0 % (0.0-1.8); Eosinophils % (Manual) 0 % (0.0-4.3); Total Cells Counted 100
[2019-04-16 07:02] LABS: Anisocytosis Few; Large Platelets Few; Ovalocytes Few; Platelet Estimate Consistent w Auto; Stomatocytes Few
[2019-04-16] MEDS: ARFORMOTEROL 15 MCG/2 ML NEBU IH SCH ×2 (08:10→19:44)
[2019-04-16] MEDS: IPRATROPIUM/ALBUTEROL SULFATE 3 ML AMPUL.NEB IH SCH ×5 (08:10→20:43)
[2019-04-16] MEDS: BUDESONIDE 0.5 MG/2 ML NEBU IH SCH ×2 (08:11→19:44)
[2019-04-16] MEDS: LORazepam 2 MG/ML VIAL IV PRN ×3 (09:05→20:26)
--- NOTE | 2019-04-16 10:22 | Progress Note ---
Assessment and Plan Assessment and plan: Acute on chronic hypoxic respiratory failure. Etiology secondary to COPD exacerbation, MEME and OHS. Continue BiPAP as clinically indicated. Keep nothing by mouth for now. Pulmonary following. Follow-up ABG. Steroid taper per pulmonary. Acute severe COPD exacerbation. IV antibiotic therapy, IV steroid therapy, pulse oximetry, nebulizer therapy Acute bronchitis. Continue Levaquin. Obesity hypoventilation syndrome. Hypertension. Continue antihypertensive medications. History Interval history: No new issues overnight. Patient requiring BiPAP. Patient with tachycardia(150s) and desaturation (50s) when BiPAP was taken off to allow the patient to eat. Hospitalist Physical - Constitutional Vitals: Temp Pulse Resp BP Pulse Ox 98.4 F 145 H 21 156/65 97 04/16/19 07:55 04/16/19 08:49 04/16/19 08:49 04/16/19 08:00 04/16/19 08:16 General appearance: Present: mild distress, obese - EENT Eyes: Present: PERRL, EOM intact ENT: hearing intact, clear oral mucosa, dentition normal - Neck Neck: Present: supple, normal ROM - Respiratory Respiratory effort: normal Respiratory: bilateral: CTA - Cardiovascular Rhythm: regular Heart Sounds: Present: S1 & S2. Absent: gallop, rub - Extremities Extremities: no ischemia, No edema, Full ROM - Abdominal General gastrointestinal: soft, non-tender, non-distended, normal bowel sounds - Integumentary Integumentary: Present: clear, warm, dry - Neurologic Neurologic: CNII-XII intact, moves all extremities Results - Labs CBC & Chem 7: 04/16/19 04:50 04/16/19 04:50 Labs: Laboratory Last Values WBC 9.6 K/mm3 (4.5-11.0) 04/16/19 04:50 RBC 4.02 M/mm3 (3.65-5.03) 04/16/19 04:50 Hgb 11.0 gm/dl (10.1-14.3) 04/16/19 04:50 Hct 33.9 % (30.3-42.9) 04/16/19 04:50 MCV 84 fl (79-97) 04/16/19 04:50 MCH 27 pg (28-32) L 04/16/19 04:50 MCHC 32 % (30-34) 04/16/19 04:50 RDW 17.1 % (13.2-15.2) H 04/16/19 04:50 Plt Count 306 K/mm3 (140-440) 04/16/19 04:50 Add Manual Diff Complete 04/16/19 04:50 Total Counted 100 04/16/19 04:50 Seg Neutrophils % [employer] 04/16/19 04:50 Seg Neuts % (Manual) 91.0 % (40.0-70.0) H 04/16/19 04:50 Band Neutrophils % 0 % 04/16/19 04:50 Lymphocytes % (Manual) 7.0 % (13.4-35.0) L 04/16/19 04:50 Reactive Lymphs % (Man) 0 % 04/16/19 04:50 Monocytes % (Manual) 1.0 % (0.0-7.3) 04/16/19 04:50 Eosinophils % (Manual) 0 % (0.0-4.3) 04/16/19 04:50 Basophils % (Manual) 0 % (0.0-1.8) 04/16/19 04:50 Metamyelocytes % 1.0 % 04/16/19 04:50 Myelocytes % 0 % 04/16/19 04:50 Promyelocytes % 0 % 04/16/19 04:50 Blast Cells % 0 % 04/16/19 04:50 Nucleated RBC % Not Reportable 04/16/19 04:50 Seg Neutrophils # Man 8.7 K/mm3 (1.8-7.7) H 04/16/19 04:50 Band Neutrophils # 0.0 K/mm3 04/16/19 04:50 Lymphocytes # (Manual) 0.7 K/mm3 (1.2-5.4) L 04/16/19 04:50 Abs React Lymphs (Man) 0.0 K/mm3 04/16/19 04:50 Monocytes # (Manual) 0.1 K/mm3 (0.0-0.8) 04/16/19 04:50 Eosinophils # (Manual) 0.0 K/mm3 (0.0-0.4) 04/16/19 04:50 Basophils # (Manual) 0.0 K/mm3 (0.0-0.1) 04/16/19 04:50 Metamyelocytes # 0.1 K/mm3 04/16/19 04:50 Myelocytes # 0.0 K/mm3 04/16/19 04:50 Promyelocytes # 0.0 K/mm3 04/16/19 04:50 Blast Cells # 0.0 K/mm3 04/16/19 04:50 WBC Morphology Not Reportable 04/16/19 04:50 Hypersegmented Neuts Not Reportable 04/16/19 04:50 Hyposegmented Neuts Not Reportable 04/16/19 04:50 Hypogranular Neuts Not Reportable 04/16/19 04:50 Smudge Cells Not Reportable 04/16/19 04:50 Toxic Granulation Not Reportable 04/16/19 04:50 Toxic Vacuolation Not Reportable 04/16/19 04:50 Dohle Bodies Not Reportable 04/16/19 04:50 Pelger-Huet Anomaly Not Reportable 04/16/19 04:50 Basilia Rods Not Reportable 04/16/19 04:50 Platelet Estimate Consistent w auto 04/16/19 04:50 Clumped Platelets Not Reportable 04/16/19 04:50 Plt Clumps, EDTA Not Reportable 04/16/19 04:50 Large Platelets Few 04/16/19 04:50 Giant Platelets Not Reportable 04/16/19 04:50 Platelet Satelliting Not Reportable 04/16/19 04:50 Plt Morphology Comment Not Reportable 04/16/19 04:50 RBC Morphology Not Reportable 04/16/19 04:50 Dimorphic RBCs Not Reportable 04/16/19 04:50 Polychromasia Not Reportable 04/16/19 04:50 Hypochromasia Not Reportable 04/16/19 04:50 Poikilocytosis Not Reportable 04/16/19 04:50 Anisocytosis Few 04/16/19 04:50 Microcytosis Not Reportable 04/16/19 04:50 Macrocytosis Not Reportable 04/16/19 04:50 Spherocytes Not Reportable 04/16/19 04:50 Pappenheimer Bodies Not Reportable 04/16/19 04:50 Sickle Cells Not Reportable 04/16/19 04:50 Target Cells Not Reportable 04/16/19 04:50 Tear Drop Cells Not Reportable 04/16/19 04:50 Ovalocytes Few 04/16/19 04:50 Stomatocytes Few 04/16/19 04:50 Helmet Cells Not Reportable 04/16/19 04:50 Paulson-Tebbetts Bodies Not Reportable 04/16/19 04:50 Boring Rings Not Reportable 04/16/19 04:50 [place] Cells Not Reportable 04/16/19 04:50 Bite Cells Not Reportable 04/16/19 04:50 Crenated Cell Not Reportable 04/16/19 04:50 Elliptocytes Not Reportable 04/16/19 04:50 Acanthocytes (Spur) Not Reportable 04/16/19 04:50 Rouleaux Not Reportable 04/16/19 04:50 Hemoglobin C Crystals Not Reportable 04/16/19 04:50 Schistocytes Not Reportable 04/16/19 04:50 Malaria parasites Not Reportable 04/16/19 04:50 Ronak Bodies Not Reportable 04/16/19 04:50 Hem Pathologist Commnt No 04/16/19 04:50 PT 12.5 Sec. (12.2-14.9) 04/13/19 14:10 INR 0.92 (0.87-1.13) 04/13/19 14:10 APTT 34.1 Sec. (24.2-36.6) 04/13/19 14:10 POC ABG pH 7.387 (7.35-7.45) 04/15/19 11:19 ABG pH 7.350 pH Units (7.350-7.450) 04/14/19 05:45 POC ABG pCO2 69.5 (35-45) H 04/15/19 11:19 ABG pCO2 73.6 mm Hg 04/14/19 05:45 POC ABG pO2 77 (80-105) L 04/15/19 11:19 ABG pO2 89.2 mm Hg (80.0-90.0) 04/14/19 05:45 POC ABG HCO3 41.8 (22-26 mml/L) 04/15/19 11:19 ABG HCO3 39.7 mmol/L (20.0-26.0) H 04/14/19 05:45 POC ABG Total CO2 44 (23-27mmol/L) 04/15/19 11:19 POC ABG O2 Sat 94 04/15/19 11:19 ABG O2 Saturation 97.0 % (95.0-99.0) 04/14/19 05:45 ABG O2 Content 13.2 (0.0-44) 04/14/19 05:45 POC ABG Base Excess 17 ((-2) - (+3)mmol/L) 04/15/19 11:19 ABG Base Excess 11.9 mmol/L (-2.0-3.0) H 04/14/19 05:45 ABG Hemoglobin 9.8 gm/dl (12.0-16.0) L 04/14/19 05:45 ABG Carboxyhemoglobin 1.8 % (0.0-5.0) 04/14/19 05:45 ABG Methemoglobin 0.5 % (0.0-1.5) 04/14/19 05:45 Oxyhemoglobin 94.8 % (95.0-99.0) L 04/14/19 05:45 FiO2 30 % 04/15/19 11:19 Sodium 139 mmol/L (137-145) 04/16/19 04:50 Potassium 4.6 mmol/L (3.6-5.0) 04/16/19 04:50 Chloride 93.0 mmol/L (98-107) L 04/16/19 04:50 Carbon Dioxide 35 mmol/L (22-30) H 04/16/19 04:50 Anion Gap 16 mmol/L 04/16/19 04:50 BUN 25 mg/dL (7-17) H 04/16/19 04:50 Creatinine 0.6 mg/dL (0.7-1.2) L 04/16/19 04:50 Estimated GFR > 60 ml/min 04/16/19 04:50 BUN/Creatinine Ratio 42 % 04/16/19 04:50 Glucose 200 mg/dL (65-100) H 04/16/19 04:50 POC Glucose 223 (70-105) H 04/15/19 22:18 Calcium 8.7 mg/dL (8.4-10.2) 04/16/19 04:50 Magnesium 2.50 mg/dL (1.7-2.3) H 04/16/19 04:50 Active Medications - Current Medications Current Medications: Generic Name Dose Route Start Last Admin Trade Name Freq PRN Reason Stop Dose Admin Albuterol 2.5 mg 04/13/19 15:02 04/13/19 18:32 Proventil IH 2.5 mg Q3HRT PRN Administration Shortness Of Breath Albuterol/Ipratropium 1 ampul 04/16/19 08:00 04/16/19 08:10 Duoneb *Not For Prn Use* IH 1 ampul QIDRT [facility] Administration Arformoterol Tartrate 15 mcg 04/13/19 20:00 04/16/19 08:10 Brovana Nebu IH 15 mcg Q12HRT [facility] Administration Aspirin 81 mg 04/14/19 10:00 04/15/19 09:23 Baby Aspirin PO 81 mg DAILY [facility] Administration Atorvastatin Calcium 10 mg 04/13/19 22:00 04/15/19 21:01 Atorvastatin PO 10 mg QHS [facility] Administration Budesonide 1 mg 04/13/19 23:55 04/16/19 08:11 Pulmicort IH 1 mg Q12HRT [facility] Administration Citalopram Hydrobromide 40 mg 04/14/19 10:00 04/15/19 09:24 Celexa PO 40 mg QDAY [facility] Administration Enoxaparin Sodium 40 mg 04/15/19 22:59 04/15/19 23:00 Enoxaparin SUB-Q 40 mg QDAY@2200 [facility] Administration Guaifenesin 1,200 mg 04/13/19 22:00 04/15/19 21:01 Mucinex Er PO 1,200 mg BID [facility] Administration Levofloxacin/Dextrose 500 mg in 100 mls @ 100 mls/hr 04/14/19 10:00 04/15/19 09:25 Levaquin 500mg/100ml IV 04/16/19 23:59 100 mls/hr Q24HR [facility] Administration Protocol Lorazepam 1 mg 04/13/19 17:41 04/16/19 09:05 Ativan IV 1 mg Q8H PRN Administration Anxiety Methylprednisolone Sodium Succinate 80 mg 04/16/19 06:00 04/16/19 05:00 Solu-Medrol IV 80 mg Q8HR [facility] Administration Mirtazapine 15 mg 04/13/19 22:00 04/15/19 21:01 Remeron PO 15 mg QHS [facility] Administration Multivitamins 1 each 04/14/19 10:00 04/15/19 09:24 Theragran Tab PO 1 each DAILY [facility] Administration Sodium Chloride 10 ml 04/13/19 22:00 04/15/19 21:02 Sodium Chloride Flush Syringe 10 Ml IV 10 ml BID [facility] Administration Sodium Chloride 10 ml 04/13/19 15:02 Sodium Chloride Flush Syringe 10 Ml IV PRN PRN LINE FLUSH Thiamine HCl 100 mg 04/13/19 22:00 04/15/19 21:01 Vitamin B-1 PO 100 mg BID [facility] Administration
[2019-04-16] MEDS: MULTIVITAMINS ,THERAPEUTIC TAB PO SCH (11:18)
[2019-04-16] MEDS: guaiFENesin ER 600 MG TAB PO SCH ×2 (11:18→21:37)
[2019-04-16] MEDS: CITALOPRAM 20 MG TAB PO SCH (11:18)
[2019-04-16] MEDS: ASPIRIN 81 MG TAB CHEW PO SCH (11:18)
[2019-04-16] MEDS: THIAMINE 100 MG TAB PO SCH ×2 (11:19→21:40)
[2019-04-16] MEDS ORDERED: SENNOSIDES 8.6 MG TAB PO PRN (19:48)
--- NOTE | 2019-04-16 19:53 | Progress Note ---
Assessment and Plan Imp: 1. Centrilobular emphysema, very severe 2. COPD exac. 3. Acute bronchitis 4. A/C respiratory failure, hypoxia/hypercapnea 5. Hyperkalemia, better Rec: 1. Cont. Solumedrol current dose; added Duonebs QID; cont. Levaquin x 5-7 days; cont. Pulmicort/Brovana 2. Added DVT PPx 3. Wean off BIPAP as able; pt. has NIV (Trilogy) unit at home 4. Add bowel regimen 5. Complex decision-making Plan of care reviewed with patient, she understands/agrees Subjective Date of service: 04/16/19 Principal diagnosis: COPD Interval history: No events. Awake, alert. SOB and wheezing are a little better. On BIPAP. Minimal cough. No chest pain. C/o constipation. Active Medications Albuterol (Proventil) 2.5 mg IH Q3HRT PRN PRN Reason: Shortness Of Breath Last Admin: 04/13/19 18:32 Dose: 2.5 mg Documented by: Albuterol/Ipratropium (Duoneb *Not For Prn Use*) 1 ampul IH QIDRT [facility] Last Admin: 04/16/19 19:44 Dose: 1 ampul Documented by: Arformoterol Tartrate (Brovana Nebu) 15 mcg IH Q12HRT [facility] Last Admin: 04/16/19 19:44 Dose: 15 mcg Documented by: Aspirin (Baby Aspirin) 81 mg PO DAILY [facility] Last Admin: 04/16/19 11:18 Dose: Not Given Documented by: Atorvastatin Calcium (Atorvastatin) 10 mg PO QHS [facility] Last Admin: 04/15/19 21:01 Dose: 10 mg Documented by: Budesonide (Pulmicort) 1 mg IH Q12HRT [facility] Last Admin: 04/16/19 19:44 Dose: 1 mg Documented by: Citalopram Hydrobromide (Celexa) 40 mg PO QDAY [facility] Last Admin: 04/16/19 11:18 Dose: Not Given Documented by: Docusate Sodium (Colace) 100 mg PO BID [facility] Enoxaparin Sodium (Enoxaparin) 40 mg SUB-Q QDAY@2200 [facility] Last Admin: 04/15/19 23:00 Dose: 40 mg Documented by: Guaifenesin (Mucinex Er) 1,200 mg PO BID [facility] Last Admin: 04/16/19 11:18 Dose: Not Given Documented by: Levofloxacin/Dextrose (Levaquin 500mg/100ml) 500 mg in 100 mls @ 100 mls/hr IV Q24HR [facility]; Protocol Stop: 04/16/19 23:59 Last Admin: 04/16/19 11:41 Dose: 100 mls/hr Documented by: Latanoprost (Latanoprost 0.005%) 1 drops OU QHS [facility] Lorazepam (Ativan) 1 mg IV Q8H PRN PRN Reason: Anxiety Last Admin: 04/16/19 14:55 Dose: 1 mg Documented by: Methylprednisolone Sodium Succinate (Solu-Medrol) 80 mg IV Q8HR [facility] Last Admin: 04/16/19 14:51 Dose: 80 mg Documented by: Mirtazapine (Remeron) 15 mg PO QHS [facility] Last Admin: 04/15/19 21:01 Dose: 15 mg Documented by: Multivitamins (Theragran Tab) 1 each PO DAILY [facility] Last Admin: 04/16/19 11:18 Dose: Not Given Documented by: Senna (Senokot) 8.6 mg PO Q12H PRN PRN Reason: Laxative Effect Sodium Chloride (Sodium Chloride Flush Syringe 10 Ml) 10 ml IV BID [facility] Last Admin: 04/16/19 11:42 Dose: 10 ml Documented by: Sodium Chloride (Sodium Chloride Flush Syringe 10 Ml) 10 ml IV PRN PRN PRN Reason: LINE FLUSH Thiamine HCl (Vitamin B-1) 100 mg PO BID [facility] Last Admin: 04/16/19 11:19 Dose: Not Given Documented by: Objective Vital Signs - 12hr 04/16/19 04/16/19 04/16/19 07:55 08:00 08:16 Temperature 98.4 F Pulse Rate 67 Pulse Rate [ 77 Anterior Bilateral Throughout] Respiratory 13 Rate Respiratory 16 Rate [Anterior Bilateral Throughout] Blood Pressure 156/65 O2 Sat by Pulse 96 97 Oximetry 04/16/19 04/16/19 04/16/19 08:49 09:00 10:00 Temperature Pulse Rate 118 H 140 H Pulse Rate [ 145 H Anterior Bilateral Throughout] Respiratory 23 17 Rate Respiratory 21 Rate [Anterior Bilateral Throughout] Blood Pressure 156/65 156/65 O2 Sat by Pulse 95 95 Oximetry 04/16/19 04/16/19 04/16/19 11:00 11:23 11:24 Temperature Pulse Rate 108 H 92 H Pulse Rate [ 96 H Anterior Bilateral Throughout] Respiratory 14 22 Rate Respiratory 22 Rate [Anterior Bilateral Throughout] Blood Pressure 131/73 131/73 O2 Sat by Pulse 96 96 Oximetry 04/16/19 04/16/19 04/16/19 12:00 13:00 14:00 Temperature 98.3 F Pulse Rate 103 H 96 H 127 H Pulse Rate [ Anterior Bilateral Throughout] Respiratory 22 17 33 H Rate Respiratory Rate [Anterior Bilateral Throughout] Blood Pressure 112/59 131/73 131/73 O2 Sat by Pulse 94 93 96 Oximetry 04/16/19 04/16/19 04/16/19 15:00 16:00 17:00 Temperature 98.9 F Pulse Rate 121 H 115 H 103 H Pulse Rate [ Anterior Bilateral Throughout] Respiratory 16 19 16 Rate Respiratory Rate [Anterior Bilateral Throughout] Blood Pressure 131/73 112/59 125/50 O2 Sat by Pulse 96 96 97 Oximetry 04/16/19 04/16/19 04/16/19 18:00 19:00 19:42 Temperature Pulse Rate 111 H 112 H 18 L Pulse Rate [ Anterior Bilateral Throughout] Respiratory 17 14 22 Rate Respiratory Rate [Anterior Bilateral Throughout] Blood Pressure 125/50 125/50 125/50 O2 Sat by Pulse 96 96 97 Oximetry 04/16/19 04/16/19 19:44 19:46 Temperature Pulse Rate Pulse Rate [ 106 H Anterior Bilateral Throughout] Respiratory Rate Respiratory 18 Rate [Anterior Bilateral Throughout] Blood Pressure O2 Sat by Pulse 97 Oximetry Constitutional: no acute distress, alert Eyes: non-icteric ENT: oropharynx moist Neck: supple Effort: mildly labored Ascultation: Bilateral: diminished breath sounds, wheezes Cardiovascular: regular rate and rhythm (no mrg) Gastrointestinal: normoactive bowel sounds, soft, non-tender, non-distended Integumentary: normal Extremities: no edema, pink and warm, pulses normal Neurologic: normal mental status, non-focal exam, pupils equal and round, CN II- XII normal Psychiatric: mood appropriate, affect normal CBC and BMP: 04/16/19 04:50 04/16/19 04:50 ABG, PT/INR, D-dimer: ABG POC ABG pH 7.387 (7.35-7.45) 04/15/19 11:19 ABG pH 7.350 pH Units (7.350-7.450) 04/14/19 05:45 POC ABG pCO2 69.5 (35-45) H 04/15/19 11:19 ABG pCO2 73.6 mm Hg 04/14/19 05:45 POC ABG pO2 77 (80-105) L 04/15/19 11: ABG pO2 89.2 mm Hg (80.0-90.0) 04/14/19 05:45 POC ABG HCO3 41.8 (22-26 mml/L) 04/15/19 11:19 POC ABG Total CO2 44 (23-27mmol/L) 04/15/19 11:19 POC ABG O2 Sat 94 04/15/19 11: ABG O2 Saturation 97.0 % (95.0-99.0) 04/14/19 05:45 PT/INR, D-dimer PT 12.5 Sec. (12.2-14.9) 04/13/19 14:10 INR 0.92 (0.87-1.13) 04/13/19 14:10 Abnormal lab findings: Abnormal Labs 04/13/19 04/13/19 04/13/19 12:47 14:10 14:10 WBC 13.7 H MCH 27 L RDW 16.9 H Seg Neuts % (Manual) 88.0 H Lymphocytes % (Manual) 2.0 L Seg Neutrophils # Man 12.1 H Lymphocytes # (Manual) 0.3 L POC ABG pH 7.313 L ABG pH POC ABG pCO2 POC ABG pO2 70 L ABG pO2 ABG HCO3 ABG Base Excess ABG Hemoglobin Oxyhemoglobin Potassium Chloride 93.6 L Carbon Dioxide 33 H BUN Creatinine Glucose 182 H POC Glucose Magnesium 2.90 H 04/13/19 04/13/19 04/14/19 18:26 21:30 04:43 WBC MCH 27 L RDW 16.7 H Seg Neuts % (Manual) 97.0 H Lymphocytes % (Manual) 1.0 L Seg Neutrophils # Man Lymphocytes # (Manual) 0.1 L POC ABG pH 7.298 L ABG pH 7.333 L POC ABG pCO2 POC ABG pO2 61 L ABG pO2 113.9 H ABG HCO3 37.2 H ABG Base Excess 9.1 H ABG Hemoglobin 11.1 L Oxyhemoglobin Potassium Chloride Carbon Dioxide BUN Creatinine Glucose POC Glucose Magnesium 04/14/19 04/14/19 04/14/19 04:43 05:45 12:35 WBC MCH RDW Seg Neuts % (Manual) Lymphocytes % (Manual) Seg Neutrophils # Man Lymphocytes # (Manual) POC ABG pH ABG pH POC ABG pCO2 69.3 H POC ABG pO2 ABG pO2 ABG HCO3 39.7 H ABG Base Excess 11.9 H ABG Hemoglobin 9.8 L Oxyhemoglobin 94.8 L Potassium 5.1 H Chloride 94.9 L Carbon Dioxide 38 H BUN Creatinine 0.6 L Glucose 177 H POC Glucose Magnesium 04/15/19 04/15/19 04/15/19 04:57 04:57 07:44 WBC MCH 27 L RDW 16.8 H Seg Neuts % (Manual) 87.0 H Lymphocytes % (Manual) 10.0 L Seg Neutrophils # Man 8.5 H Lymphocytes # (Manual) 1.0 L POC ABG pH ABG pH POC ABG pCO2 POC ABG pO2 ABG pO2 ABG HCO3 ABG Base Excess ABG Hemoglobin Oxyhemoglobin Potassium Chloride 93.4 L Carbon Dioxide 35 H BUN 24 H Creatinine Glucose 205 H POC Glucose 192 H Magnesium 04/15/19 04/15/19 04/15/19 10:32 11:19 16:15 WBC MCH RDW Seg Neuts % (Manual) Lymphocytes % (Manual) Seg Neutrophils # Man Lymphocytes # (Manual) POC ABG pH ABG pH POC ABG pCO2 69.5 H POC ABG pO2 77 L ABG pO2 ABG HCO3 ABG Base Excess ABG Hemoglobin Oxyhemoglobin Potassium Chloride Carbon Dioxide BUN Creatinine Glucose POC Glucose 251 H 185 H Magnesium 04/15/19 04/16/19 04/16/19 22:18 04:50 04:50 WBC MCH 27 L RDW 17.1 H Seg Neuts % (Manual) 91.0 H Lymphocytes % (Manual) 7.0 L Seg Neutrophils # Man 8.7 H Lymphocytes # (Manual) 0.7 L POC ABG pH ABG pH POC ABG pCO2 POC ABG pO2 ABG pO2 ABG HCO3 ABG Base Excess ABG Hemoglobin Oxyhemoglobin Potassium Chloride 93.0 L Carbon Dioxide 35 H BUN 25 H Creatinine 0.6 L Glucose 200 H POC Glucose 223 H Magnesium 2.50 H 04/16/19 04/16/19 07:42 11:49 WBC MCH RDW Seg Neuts % (Manual) Lymphocytes % (Manual) Seg Neutrophils # Man Lymphocytes # (Manual) POC ABG pH ABG pH POC ABG pCO2 POC ABG pO2 ABG pO2 ABG HCO3 ABG Base Excess ABG Hemoglobin Oxyhemoglobin Potassium Chloride Carbon Dioxide BUN Creatinine Glucose POC Glucose 184 H 197 H Magnesium Chest x-ray: report reviewed, image reviewed
[2019-04-16] MEDS: ENOXAPARIN 40 MG/0.4 ML INJ SUB-Q SCH (21:36)
[2019-04-16] MEDS: MIRTAZAPINE 15 MG TAB PO SCH (21:38)
[2019-04-16] MEDS: LATANOPROST 0.005% OPHTH SOLN 2.5 ML OU SCH (21:47)
[2019-04-17] MEDS: methylPREDNISolone Sod Succinate 40 MG/1 ML INJ IV SCH ×3 (05:13→21:59)
[2019-04-17 05:30] LABS: Hematocrit 34.7 % (30.3-42.9); Hemoglobin 11.2 gm/dl (10.1-14.3); Mean Corpuscular HGB Conc 32 % (30-34); Mean Corpuscular Volume 84 fl (79-97); Platelet Count 302 K/mm3 (140-440); Red Blood Count 4.12 M/mm3 (3.65-5.03); Red Cell Distribution Width 16.7 % (13.2-15.2)
[2019-04-17 05:59] LABS: BUN/Creatinine Ratio 41; Blood Urea Nitrogen 29 mg/dL (7-17); Calcium 8.7 mg/dL (8.4-10.2); Hemolysis Index 2
[2019-04-17 06:13] LABS: Basophils % (Manual) 0 % (0.0-1.8); Eosinophils % (Manual) 0 % (0.0-4.3); Total Cells Counted 100
[2019-04-17 06:16] LABS: Anisocytosis 1+; Large Platelets Few; Platelet Estimate Consistent w Auto
[2019-04-17] MEDS: LORazepam 2 MG/ML VIAL IV PRN ×2 (06:35→22:38)
[2019-04-17] MEDS: IPRATROPIUM/ALBUTEROL SULFATE 3 ML AMPUL.NEB IH SCH ×4 (07:32→19:04)
[2019-04-17] MEDS: BUDESONIDE 0.5 MG/2 ML NEBU IH SCH ×2 (07:32→19:04)
[2019-04-17] MEDS: ARFORMOTEROL 15 MCG/2 ML NEBU IH SCH ×2 (07:33→19:04)
[2019-04-17] MEDS: CITALOPRAM 20 MG TAB PO SCH (09:18)
[2019-04-17] MEDS: DOCUSATE SODIUM 100 MG CAP PO SCH ×3 (09:18→21:57)
[2019-04-17] MEDS: guaiFENesin ER 600 MG TAB PO SCH ×2 (09:18→21:58)
[2019-04-17] MEDS: ASPIRIN 81 MG TAB CHEW PO SCH (09:18)
[2019-04-17] MEDS: THIAMINE 100 MG TAB PO SCH ×2 (09:19→22:00)
[2019-04-17] MEDS: MULTIVITAMINS ,THERAPEUTIC TAB PO SCH (09:19)
--- NOTE | 2019-04-17 11:49 | Progress Note ---
Assessment and Plan 63 y/o female with chronic respiratory hypercapnic respiratory failure with worsening dyspnea, most likely secondary to acute bronchitis 1. Still recommend a total of 7 days of abx. 2. Continue IV steroids for 24 more hours then switch to Prednisone 60 daily 3. Continue PPV at night and when sleeping (PRN) 4. Should be ready for discharge in the next 18-24 hours. Subjective Date of service: 04/17/19 Principal diagnosis: COPD Interval history: No acute events. Not discharged over the weekend. Started on IV steroids and actually increased over the weekend. Objective Vital Signs - 12hr 04/17/19 04/17/19 04/17/19 00:00 01:00 02:01 Temperature 98.4 F Pulse Rate 136 H 100 H 85 Pulse Rate [ Anterior Bilateral Throughout] Pulse Rate [ 84 From Monitor] Respiratory 18 15 15 Rate Respiratory Rate [Anterior Bilateral Throughout] Blood Pressure 156/85 153/60 153/60 O2 Sat by Pulse 97 98 98 Oximetry 04/17/19 04/17/19 04/17/19 03:00 03:01 04:00 Temperature 98.1 F Pulse Rate 66 96 H 83 Pulse Rate [ Anterior Bilateral Throughout] Pulse Rate [ 84 From Monitor] Respiratory 14 14 Rate Respiratory Rate [Anterior Bilateral Throughout] Blood Pressure 153/60 117/57 O2 Sat by Pulse 98 96 Oximetry 04/17/19 04/17/19 04/17/19 04:10 05:01 06:01 Temperature Pulse Rate 84 88 76 Pulse Rate [ Anterior Bilateral Throughout] Pulse Rate [ From Monitor] Respiratory 14 15 13 Rate Respiratory Rate [Anterior Bilateral Throughout] Blood Pressure 117/57 117/57 117/57 O2 Sat by Pulse 97 97 98 Oximetry 04/17/19 04/17/19 04/17/19 07:27 07:35 08:00 Temperature 98.4 F Pulse Rate 77 Pulse Rate [ 73 Anterior Bilateral Throughout] Pulse Rate [ From Monitor] Respiratory 16 Rate Respiratory 16 Rate [Anterior Bilateral Throughout] Blood Pressure 117/57 O2 Sat by Pulse 97 Oximetry Constitutional: no acute distress, alert Eyes: non-icteric ENT: oropharynx moist Neck: supple Effort: mildly labored Ascultation: Bilateral: diminished breath sounds, wheezes Percussion: Bilateral: not dull Tactile fremitus: Bilateral: normal Cardiovascular: regular rate and rhythm (no mrg) Gastrointestinal: normoactive bowel sounds, soft, non-tender, non-distended Integumentary: normal Extremities: no edema, pink and warm, pulses normal Neurologic: normal mental status, non-focal exam, pupils equal and round, CN II- XII normal Psychiatric: mood appropriate, affect normal CBC and BMP: 04/17/19 04:49 04/17/19 04:49 ABG, PT/INR, D-dimer: ABG POC ABG pH 7.387 (7.35-7.45) 04/15/19 11:19 ABG pH 7.350 pH Units (7.350-7.450) 04/14/19 05:45 POC ABG pCO2 69.5 (35-45) H 04/15/19 11: ABG pCO2 73.6 mm Hg 04/14/19 05:45 POC ABG pO2 77 (80-105) L 04/15/19 11: ABG pO2 89.2 mm Hg (80.0-90.0) 04/14/19 05:45 POC ABG HCO3 41.8 (22-26 mml/L) 04/15/19 11:19 POC ABG Total CO2 44 (23-27mmol/L) 04/15/19 11:19 POC ABG O2 Sat 94 04/15/19 11:19 ABG O2 Saturation 97.0 % (95.0-99.0) 04/14/19 05:45 PT/INR, D-dimer PT 12.5 Sec. (12.2-14.9) 04/13/19 14:10 INR 0.92 (0.87-1.13) 04/13/19 14:10 Abnormal lab findings: Abnormal Labs 04/13/19 04/13/19 04/13/19 12:47 14:10 14:10 WBC 13.7 H MCH 27 L RDW 16.9 H Seg Neuts % (Manual) 88.0 H Lymphocytes % (Manual) 2.0 L Seg Neutrophils # Man 12.1 H Lymphocytes # (Manual) 0.3 L POC ABG pH 7.313 L ABG pH POC ABG pCO2 POC ABG pO2 70 L ABG pO2 ABG HCO3 ABG Base Excess ABG Hemoglobin Oxyhemoglobin Potassium Chloride 93.6 L Carbon Dioxide 33 H BUN Creatinine Glucose 182 H POC Glucose Magnesium 2.90 H 12/04/2004/13/19 04/14/19 18:26 21:30 04:43 WBC MCH 27 L RDW 16.7 H Seg Neuts % (Manual) 97.0 H Lymphocytes % (Manual) 1.0 L Seg Neutrophils # Man Lymphocytes # (Manual) 0.1 L POC ABG pH 7.298 L ABG pH 7.333 L POC ABG pCO2 POC ABG pO2 61 L ABG pO2 113.9 H ABG HCO3 37.2 H ABG Base Excess 9.1 H ABG Hemoglobin 11.1 L Oxyhemoglobin Potassium Chloride Carbon Dioxide BUN Creatinine Glucose POC Glucose Magnesium 04/14/19 04/14/19 04/14/19 04:43 05:45 12:35 WBC MCH RDW Seg Neuts % (Manual) Lymphocytes % (Manual) Seg Neutrophils # Man Lymphocytes # (Manual) POC ABG pH ABG pH POC ABG pCO2 69.3 H POC ABG pO2 ABG pO2 ABG HCO3 39.7 H ABG Base Excess 11.9 H ABG Hemoglobin 9.8 L Oxyhemoglobin 94.8 L Potassium 5.1 H Chloride 94.9 L Carbon Dioxide 38 H BUN Creatinine 0.6 L Glucose 177 H POC Glucose Magnesium 04/15/19 04/15/19 04/15/19 04:57 04:57 07:44 WBC MCH 27 L RDW 16.8 H Seg Neuts % (Manual) 87.0 H Lymphocytes % (Manual) 10.0 L Seg Neutrophils # Man 8.5 H Lymphocytes # (Manual) 1.0 L POC ABG pH ABG pH POC ABG pCO2 POC ABG pO2 ABG pO2 ABG HCO3 ABG Base Excess ABG Hemoglobin Oxyhemoglobin Potassium Chloride 93.4 L Carbon Dioxide 35 H BUN 24 H Creatinine Glucose 205 H POC Glucose 192 H Magnesium 04/15/19 04/15/19 04/15/19 10:32 11:19 16:15 WBC MCH RDW Seg Neuts % (Manual) Lymphocytes % (Manual) Seg Neutrophils # Man Lymphocytes # (Manual) POC ABG pH ABG pH POC ABG pCO2 69.5 H POC ABG pO2 77 L ABG pO2 ABG HCO3 ABG Base Excess ABG Hemoglobin Oxyhemoglobin Potassium Chloride Carbon Dioxide BUN Creatinine Glucose POC Glucose 251 H 185 H Magnesium 04/15/19 04/16/19 04/16/19 22:18 04:50 04:50 WBC MCH 27 L RDW 17.1 H Seg Neuts % (Manual) 91.0 H Lymphocytes % (Manual) 7.0 L Seg Neutrophils # Man 8.7 H Lymphocytes # (Manual) 0.7 L POC ABG pH ABG pH POC ABG pCO2 POC ABG pO2 ABG pO2 ABG HCO3 ABG Base Excess ABG Hemoglobin Oxyhemoglobin Potassium Chloride 93.0 L Carbon Dioxide 35 H BUN 25 H Creatinine 0.6 L Glucose 200 H POC Glucose 223 H Magnesium 2.50 H 04/16/19 04/16/19 04/17/19 07:42 11:49 04:49 WBC MCH 27 L RDW 16.7 H Seg Neuts % (Manual) 92.0 H Lymphocytes % (Manual) 2.0 L Seg Neutrophils # Man 8.9 H Lymphocytes # (Manual) 0.2 L POC ABG pH ABG pH POC ABG pCO2 POC ABG pO2 ABG pO2 ABG HCO3 ABG Base Excess ABG Hemoglobin Oxyhemoglobin Potassium Chloride Carbon Dioxide BUN Creatinine Glucose POC Glucose 184 H 197 H Magnesium 04/17/19 04:49 WBC MCH RDW Seg Neuts % (Manual) Lymphocytes % (Manual) Seg Neutrophils # Man Lymphocytes # (Manual) POC ABG pH ABG pH POC ABG pCO2 POC ABG pO2 ABG pO2 ABG HCO3 ABG Base Excess ABG Hemoglobin Oxyhemoglobin Potassium Chloride 95.8 L Carbon Dioxide BUN 29 H Creatinine Glucose 234 H POC Glucose Magnesium
[2019-04-17] MEDS: ACETAMINOPHEN 325 MG TAB PO PRN (20:12)
[2019-04-17] MEDS: ENOXAPARIN 40 MG/0.4 ML INJ SUB-Q SCH (21:57)
[2019-04-17] MEDS: MIRTAZAPINE 15 MG TAB PO SCH (21:58)
[2019-04-18] MEDS: LATANOPROST 0.005% OPHTH SOLN 2.5 ML OU SCH (05:19)
[2019-04-18] MEDS: methylPREDNISolone Sod Succinate 40 MG/1 ML INJ IV SCH ×3 (05:19→21:54)
--- NOTE | 2019-04-18 06:32 | Progress Note ---
Assessment and Plan Acute on chronic hypoxic respiratory failure. Etiology secondary to COPD exacerbation, MEME and OHS. Continue BiPAP as clinically indicated. Keep nothing by mouth for now. Pulmonary following. Follow-up ABG. Steroid taper per pulmonary. Acute severe COPD exacerbation. IV antibiotic therapy, IV steroid therapy, pulse oximetry, nebulizer therapy Acute bronchitis. Continue Levaquin. Obesity hypoventilation syndrome. Hypertension. Continue antihypertensive medications. DVT PROPHYlaxis--Heparin 5000 q12h Sub q Subjective Date of service: 04/17/19 Principal diagnosis: COPD Interval history: Doing better.On Nasal canula. No new issues overnight. Patient requiring BiPAP occasionally.. Improving overall Objective - Constitutional Vitals: Vital Signs - 12hr 04/17/19 04/17/19 04/17/19 19:00 19:01 19:16 Temperature Pulse Rate 129 H Pulse Rate [ Anterior Bilateral Throughout] Pulse Rate [ From Monitor] Respiratory Rate Respiratory Rate [Anterior Bilateral Throughout] Blood Pressure 151/78 O2 Sat by Pulse 95 97 Oximetry 04/17/19 04/17/19 04/17/19 19:22 19:32 19:42 Temperature 97.8 F Pulse Rate 152 H Pulse Rate [ 151 H Anterior Bilateral Throughout] Pulse Rate [ From Monitor] Respiratory 17 Rate Respiratory 22 Rate [Anterior Bilateral Throughout] Blood Pressure 151/78 O2 Sat by Pulse 94 Oximetry 04/17/19 04/17/19 04/17/19 20:00 20:01 20:12 Temperature Pulse Rate 149 H Pulse Rate [ Anterior Bilateral Throughout] Pulse Rate [ 129 H From Monitor] Respiratory 20 17 16 Rate Respiratory Rate [Anterior Bilateral Throughout] Blood Pressure 142/75 O2 Sat by Pulse 95 93 Oximetry 04/17/19 04/17/19 04/17/19 21:00 22:00 22:31 Temperature Pulse Rate 123 H 113 H 143 H Pulse Rate [ Anterior Bilateral Throughout] Pulse Rate [ From Monitor] Respiratory 16 13 13 Rate Respiratory Rate [Anterior Bilateral Throughout] Blood Pressure 147/68 148/81 148/81 O2 Sat by Pulse 93 94 97 Oximetry 04/17/19 04/17/19 04/18/19 23:01 23:41 00:00 Temperature 97.6 F Pulse Rate 148 H Pulse Rate [ Anterior Bilateral Throughout] Pulse Rate [ 142 H From Monitor] Respiratory 15 15 Rate Respiratory Rate [Anterior Bilateral Throughout] Blood Pressure 130/85 O2 Sat by Pulse 96 98 Oximetry 04/18/19 04/18/19 04/18/19 00:01 01:01 03:40 Temperature 97.2 F L Pulse Rate 116 H Pulse Rate [ Anterior Bilateral Throughout] Pulse Rate [ From Monitor] Respiratory 20 49 H Rate Respiratory Rate [Anterior Bilateral Throughout] Blood Pressure 130/77 146/92 O2 Sat by Pulse 99 95 Oximetry 04/18/19 03:42 Temperature Pulse Rate 86 Pulse Rate [ Anterior Bilateral Throughout] Pulse Rate [ From Monitor] Respiratory 14 Rate Respiratory Rate [Anterior Bilateral Throughout] Blood Pressure 142/81 O2 Sat by Pulse 99 Oximetry General appearance: Present: mild distress, well-nourished - EENT Eyes: PERRL, EOM intact ENT: hearing intact, clear oral mucosa Ears: bilateral: normal - Neck Neck: supple, normal ROM - Respiratory Respiratory effort: normal Respiratory: bilateral: CTA, rhonchi, wheezing - Breasts Breasts: normal - Cardiovascular Heart rate: 78 Rhythm: regular Heart Sounds: Present: S1 & S2. Absent: gallop, rub Extremities: pulses intact, No edema, normal color, Full ROM - Gastrointestinal General gastrointestinal: Present: soft, non-tender, non-distended, normal bowel sounds - Genitourinary Female genitourinary: normal - Integumentary Integumentary: clear, warm, dry - Musculoskeletal Musculoskeletal: 1, strength equal bilaterally - Neurologic Neurologic: moves all extremities - Psychiatric Psychiatric: memory intact, appropriate mood/affect, intact judgment & insight - Labs CBC & Chem 7: 04/17/19 04:49 04/17/19 04:49
[2019-04-18] MEDS: BUDESONIDE 0.5 MG/2 ML NEBU IH SCH ×2 (08:16→19:45)
[2019-04-18] MEDS: ARFORMOTEROL 15 MCG/2 ML NEBU IH SCH ×2 (08:17→19:44)
[2019-04-18] MEDS: IPRATROPIUM/ALBUTEROL SULFATE 3 ML AMPUL.NEB IH SCH ×5 (08:17→19:45)
[2019-04-18] MEDS: LORazepam 2 MG/ML VIAL IV PRN ×2 (10:21→21:54)
[2019-04-18] MEDS: MULTIVITAMINS ,THERAPEUTIC TAB PO SCH (10:22)
[2019-04-18] MEDS: ASPIRIN 81 MG TAB CHEW PO SCH (10:22)
[2019-04-18] MEDS: CITALOPRAM 20 MG TAB PO SCH (10:22)
[2019-04-18] MEDS: THIAMINE 100 MG TAB PO SCH ×2 (10:22→21:52)
[2019-04-18] MEDS: DOCUSATE SODIUM 100 MG CAP PO SCH ×2 (10:22→21:52)
[2019-04-18] MEDS: guaiFENesin ER 600 MG TAB PO SCH ×2 (10:22→21:52)
--- NOTE | 2019-04-18 10:32 | Progress Note ---
Assessment and Plan Assessment and plan: Acute on chronic hypoxic respiratory failure. Etiology secondary to COPD exacerbation, MEME and OHS. Continue BiPAP as clinically indicated. Keep nothing by mouth for now. Pulmonary following. Follow-up ABG. Steroid taper per pulmonary. Acute severe COPD exacerbation. IV antibiotic therapy, IV steroid therapy, pulse oximetry, nebulizer therapy Atrial tachycardia episodes Cardiology following Acute bronchitis. Continue Levaquin. Obesity hypoventilation syndrome. Hypertension. Continue antihypertensive medications. Patient stable to transfer to [facility] History Interval history: Less shortness of breath Palpitations Hospitalist Physical - Physical exam Narrative exam: Gen: Not in acute distress, lying in bed, obese HEENT: Normocephalic, atraumatic Neck: supple, no JVD Heart: S1 and S2 irreg, no murmurs, rubs or gallop Lungs: clear to auscultation bilaterally, no crackles Abd: soft, NT, non distended, normal BS Ext: Bilateral lower ext edema no clubbing, no cyanosis Neuro:Awake,alert, oriented X 3, moves all ext - Constitutional Vitals: Temp Pulse Resp BP Pulse Ox 97.6 F 75 18 170/82 96 04/18/19 08:00 04/18/19 08:48 04/18/19 08:48 04/18/19 08:01 04/18/19 09:03 General appearance: Present: obese Results - Labs CBC & Chem 7: 04/17/19 04:49 04/17/19 04:49 Labs: Laboratory Last Values WBC 9.7 K/mm3 (4.5-11.0) 04/17/19 04:49 RBC 4.12 M/mm3 (3.65-5.03) 04/17/19 04:49 Hgb 11.2 gm/dl (10.1-14.3) 04/17/19 04:49 Hct 34.7 % (30.3-42.9) 04/17/19 04:49 MCV 84 fl (79-97) 04/17/19 04:49 MCH 27 pg (28-32) L 04/17/19 04:49 MCHC 32 % (30-34) 04/17/19 04:49 RDW 16.7 % (13.2-15.2) H 04/17/19 04:49 Plt Count 302 K/mm3 (140-440) 04/17/19 04:49 Add Manual Diff Complete 04/17/19 04:49 Total Counted 100 04/17/19 04:49 Seg Neutrophils % Staffing Rn 04/17/19 04:49 Seg Neuts % (Manual) 92.0 % (40.0-70.0) H 04/17/19 04:49 Band Neutrophils % 0 % 04/17/19 04:49 Lymphocytes % (Manual) 2.0 % (13.4-35.0) L 04/17/19 04:49 Reactive Lymphs % (Man) 0 % 04/17/19 04:49 Monocytes % (Manual) 3.0 % (0.0-7.3) 04/17/19 04:49 Eosinophils % (Manual) 0 % (0.0-4.3) 04/17/19 04:49 Basophils % (Manual) 0 % (0.0-1.8) 04/17/19 04:49 Metamyelocytes % 3.0 % 04/17/19 04:49 Myelocytes % 0 % 04/17/19 04:49 Promyelocytes % 0 % 04/17/19 04:49 Blast Cells % 0 % 04/17/19 04:49 Nucleated RBC % Not Reportable 04/17/19 04:49 Seg Neutrophils # Man 8.9 K/mm3 (1.8-7.7) H 04/17/19 04:49 Band Neutrophils # 0.0 K/mm3 04/17/19 04:49 Lymphocytes # (Manual) 0.2 K/mm3 (1.2-5.4) L 04/17/19 04:49 Abs React Lymphs (Man) 0.0 K/mm3 04/17/19 04:49 Monocytes # (Manual) 0.3 K/mm3 (0.0-0.8) 04/17/19 04:49 Eosinophils # (Manual) 0.0 K/mm3 (0.0-0.4) 04/17/19 04:49 Basophils # (Manual) 0.0 K/mm3 (0.0-0.1) 04/17/19 04:49 Metamyelocytes # 0.3 K/mm3 04/17/19 04:49 Myelocytes # 0.0 K/mm3 04/17/19 04:49 Promyelocytes # 0.0 K/mm3 04/17/19 04:49 Blast Cells # 0.0 K/mm3 04/17/19 04:49 WBC Morphology Not Reportable 04/17/19 04:49 Hypersegmented Neuts Not Reportable 04/17/19 04:49 Hyposegmented Neuts Not Reportable 04/17/19 04:49 Hypogranular Neuts Not Reportable 04/17/19 04:49 Smudge Cells Not Reportable 04/17/19 04:49 Toxic Granulation Not Reportable 04/17/19 04:49 Toxic Vacuolation Not Reportable 04/17/19 04:49 Dohle Bodies Not Reportable 04/17/19 04:49 Pelger-Huet Anomaly Not Reportable 04/17/19 04:49 Basilia Rods Not Reportable 04/17/19 04:49 Platelet Estimate Consistent w auto 04/17/19 04:49 Clumped Platelets Not Reportable 04/17/19 04:49 Plt Clumps, EDTA Not Reportable 04/17/19 04:49 Large Platelets Few 04/17/19 04:49 Giant Platelets Not Reportable 04/17/19 04:49 Platelet Satelliting Not Reportable 04/17/19 04:49 Plt Morphology Comment Not Reportable 04/17/19 04:49 RBC Morphology Not Reportable 04/17/19 04:49 Dimorphic RBCs Not Reportable 04/17/19 04:49 Polychromasia Not Reportable 04/17/19 04:49 Hypochromasia Not Reportable 04/17/19 04:49 Poikilocytosis Not Reportable 04/17/19 04:49 Anisocytosis 1+ 04/17/19 04:49 Microcytosis Not Reportable 04/17/19 04:49 Macrocytosis Not Reportable 04/17/19 04:49 Spherocytes Not Reportable 04/17/19 04:49 Pappenheimer Bodies Not Reportable 04/17/19 04:49 Sickle Cells Not Reportable 04/17/19 04:49 Target Cells Not Reportable 04/17/19 04:49 Tear Drop Cells Not Reportable 04/17/19 04:49 Ovalocytes Not Reportable 04/17/19 04:49 Stomatocytes Few 04/16/19 04:50 Helmet Cells Not Reportable 04/17/19 04:49 Paulson-Sperry Bodies Not Reportable 04/17/19 04:49 Holt Rings Not Reportable 04/17/19 04:49 Galt Cells Not Reportable 04/17/19 04:49 Bite Cells Not Reportable 04/17/19 04:49 Crenated Cell Not Reportable 04/17/19 04:49 Elliptocytes Not Reportable 04/17/19 04:49 Acanthocytes (Spur) Not Reportable 04/17/19 04:49 Rouleaux Not Reportable 04/17/19 04:49 Hemoglobin C Crystals Not Reportable 04/17/19 04:49 Schistocytes Not Reportable 04/17/19 04:49 Malaria parasites Not Reportable 04/17/19 04:49 Ronak Bodies Not Reportable 04/17/19 04:49 Hem Pathologist Commnt No 04/17/19 04:49 PT 12.5 Sec. (12.2-14.9) 04/13/19 14:10 INR 0.92 (0.87-1.13) 04/13/19 14:10 APTT 34.1 Sec. (24.2-36.6) 04/13/19 14:10 POC ABG pH 7.387 (7.35-7.45) 04/15/19 11:19 ABG pH 7.350 pH Units (7.350-7.450) 04/14/19 05:45 POC ABG pCO2 69.5 (35-45) H 04/15/19 11:19 ABG pCO2 73.6 mm Hg 04/14/19 05:45 POC ABG pO2 77 (80-105) L 04/15/19 11: ABG pO2 89.2 mm Hg (80.0-90.0) 04/14/19 05:45 POC ABG HCO3 41.8 (22-26 mml/L) 04/15/19 11:19 ABG HCO3 39.7 mmol/L (20.0-26.0) H 04/14/19 05:45 POC ABG Total CO2 44 (23-27mmol/L) 04/15/19 11:19 POC ABG O2 Sat 94 04/15/19 11:19 ABG O2 Saturation 97.0 % (95.0-99.0) 04/14/19 05:45 ABG O2 Content 13.2 (0.0-44) 04/14/19 05:45 POC ABG Base Excess 17 ((-2) - (+3)mmol/L) 04/15/19 11:19 ABG Base Excess 11.9 mmol/L (-2.0-3.0) H 04/14/19 05:45 ABG Hemoglobin 9.8 gm/dl (12.0-16.0) L 04/14/19 05:45 ABG Carboxyhemoglobin 1.8 % (0.0-5.0) 04/14/19 05:45 ABG Methemoglobin 0.5 % (0.0-1.5) 04/14/19 05:45 Oxyhemoglobin 94.8 % (95.0-99.0) L 04/14/19 05:45 FiO2 30 % 04/15/19 11:19 Sodium 142 mmol/L (137-145) 04/17/19 04:49 Potassium 4.3 mmol/L (3.6-5.0) 04/17/19 04:49 Chloride 95.8 mmol/L (98-107) L 04/17/19 04:49 Carbon Dioxide 30 mmol/L (22-30) 04/17/19 04:49 Anion Gap 21 mmol/L 04/17/19 04:49 BUN 29 mg/dL (7-17) H 04/17/19 04:49 Creatinine 0.7 mg/dL (0.7-1.2) 04/17/19 04:49 Estimated GFR > 60 ml/min 04/17/19 04:49 BUN/Creatinine Ratio 41 % 04/17/19 04:49 Glucose 234 mg/dL (65-100) H 04/17/19 04:49 POC Glucose 197 (70-105) H 04/16/19 11:49 Calcium 8.7 mg/dL (8.4-10.2) 04/17/19 04:49 Magnesium 2.50 mg/dL (1.7-2.3) H 04/16/19 04:50 Active Medications - Current Medications Current Medications: Generic Name Dose Route Start Last Admin Trade Name Freq PRN Reason Stop Dose Admin Acetaminophen 650 mg 04/17/19 19:36 04/17/19 20:12 Tylenol PO 650 mg Q6H PRN Administration Headache Albuterol 2.5 mg 04/13/19 15:02 04/13/19 18:32 Proventil IH 2.5 mg Q3HRT PRN Administration Shortness Of Breath Albuterol/Ipratropium 1 ampul 04/16/19 08:00 04/18/19 08:17 Duoneb *Not For Prn Use* IH 1 ampul QIDRT NIYA Administration Arformoterol Tartrate 15 mcg 04/13/19 20:00 04/18/19 08:17 Brovana Nebu IH 15 mcg Q12HRT NIYA Administration Aspirin 81 mg 04/14/19 10:00 04/18/19 10:22 Baby Aspirin PO 81 mg DAILY NIYA Administration Atorvastatin Calcium 10 mg 04/13/19 22:00 04/17/19 21:57 Atorvastatin PO 10 mg QHS [facility] Administration Budesonide 1 mg 04/13/19 23:55 04/18/19 08:16 Pulmicort IH 1 mg Q12HRT NIYA Administration Citalopram Hydrobromide 40 mg 04/14/19 10:00 04/18/19 10:22 Celexa PO 40 mg QDAY [facility] Administration Docusate Sodium 100 mg 04/16/19 22:00 04/18/19 10:22 Colace PO 100 mg BID NIYA Administration Enoxaparin Sodium 40 mg 04/15/19 22:59 04/17/19 21:57 Enoxaparin SUB-Q 40 mg QDAY@2200 [facility] Administration Guaifenesin 1,200 mg 04/13/19 22:00 04/18/19 10:22 Mucinex Er PO 1,200 mg BID NIYA Administration Latanoprost 1 drops 04/16/19 22:00 04/18/19 05:19 Latanoprost 0.005% OU Not Given QHS [facility] Lorazepam 1 mg 04/13/19 17:41 04/18/19 10:21 Ativan IV 1 mg Q8H PRN Administration Anxiety Methylprednisolone Sodium Succinate 60 mg 04/18/19 06:36 Solu-Medrol IV Q8HR [facility] Metoprolol Tartrate 25 mg 04/18/19 11:00 Metoprolol PO BID [facility] Mirtazapine 15 mg 04/13/19 22:00 04/17/19 21:58 Remeron PO 15 mg QHS [facility] Administration Multivitamins 1 each 04/14/19 10:00 04/18/19 10:22 Theragran Tab PO 1 each DAILY NIYA Administration Senna 8.6 mg 04/16/19 19:48 Senokot PO Q12H PRN Laxative Effect Sodium Chloride 10 ml 04/13/19 22:00 04/17/19 21:59 Sodium Chloride Flush Syringe 10 Ml IV 10 ml BID NIYA Administration Sodium Chloride 10 ml 04/13/19 15:02 Sodium Chloride Flush Syringe 10 Ml IV PRN PRN LINE FLUSH Thiamine HCl 100 mg 04/13/19 22:00 04/18/19 10:22 Vitamin B-1 PO 100 mg BID NIYA Administration
[2019-04-18] MEDS ORDERED: METOPROLOL TARTRATE 25 MG TAB PO SCH (11:00)
--- NOTE | 2019-04-18 11:44 | Progress Note ---
Assessment and Plan 63 y/o female with chronic respiratory hypercapnic respiratory failure with worsening dyspnea, most likely secondary to acute bronchitis 1. Still recommend a total of 7 days of abx. 2. Continue IV steroids for 24 more hours then switch to Prednisone 60 daily, this should happen today. 3. Continue PPV at night and when sleeping (PRN) 4. Should be ready for discharge in the next 18-24 hours. Subjective Date of service: 04/18/19 Principal diagnosis: COPD Interval history: No acute events. Being transferred to the floor. Objective Vital Signs - 12hr 04/18/19 04/18/19 04/18/19 00:00 00:01 01:01 Temperature Pulse Rate 116 H Pulse Rate [ Anterior Bilateral Throughout] Pulse Rate [ 115 H From Monitor] Respiratory 15 20 49 H Rate Respiratory Rate [Anterior Bilateral Throughout] Blood Pressure 130/77 146/92 O2 Sat by Pulse 98 99 95 Oximetry 04/18/19 04/18/19 04/18/19 02:00 03:00 03:40 Temperature 97.2 F L Pulse Rate 89 81 Pulse Rate [ Anterior Bilateral Throughout] Pulse Rate [ From Monitor] Respiratory 14 16 Rate Respiratory Rate [Anterior Bilateral Throughout] Blood Pressure 129/59 129/59 O2 Sat by Pulse 96 99 Oximetry 04/18/19 04/18/19 04/18/19 03:42 04:00 05:01 Temperature Pulse Rate 86 80 82 Pulse Rate [ Anterior Bilateral Throughout] Pulse Rate [ 142 H From Monitor] Respiratory 14 15 13 Rate Respiratory Rate [Anterior Bilateral Throughout] Blood Pressure 142/81 135/84 136/65 O2 Sat by Pulse 99 95 96 Oximetry 04/18/19 04/18/19 04/18/19 06:00 07:00 08:00 Temperature 97.6 F Pulse Rate 89 Pulse Rate [ Anterior Bilateral Throughout] Pulse Rate [ 110 H From Monitor] Respiratory 12 12 22 Rate Respiratory Rate [Anterior Bilateral Throughout] Blood Pressure 142/63 146/80 O2 Sat by Pulse 94 96 95 Oximetry 04/18/19 04/18/19 04/18/19 08:01 08:48 09:03 Temperature Pulse Rate 70 Pulse Rate [ 75 Anterior Bilateral Throughout] Pulse Rate [ From Monitor] Respiratory 13 Rate Respiratory 18 Rate [Anterior Bilateral Throughout] Blood Pressure 170/82 O2 Sat by Pulse 94 96 Oximetry 04/18/19 10:34 Temperature Pulse Rate 145 H Pulse Rate [ Anterior Bilateral Throughout] Pulse Rate [ From Monitor] Respiratory Rate Respiratory Rate [Anterior Bilateral Throughout] Blood Pressure 98/55 O2 Sat by Pulse Oximetry Constitutional: no acute distress, alert Eyes: non-icteric ENT: oropharynx moist Neck: supple Effort: mildly labored Ascultation: Bilateral: diminished breath sounds, wheezes Percussion: Bilateral: not dull Tactile fremitus: Bilateral: normal Cardiovascular: regular rate and rhythm (no mrg) Gastrointestinal: normoactive bowel sounds, soft, non-tender, non-distended Integumentary: normal Extremities: no edema, pink and warm, pulses normal Neurologic: normal mental status, non-focal exam, pupils equal and round, CN II- XII normal Psychiatric: mood appropriate, affect normal CBC and BMP: 04/17/19 04:49 04/17/19 04:49 ABG, PT/INR, D-dimer: ABG POC ABG pH 7.387 (7.35-7.45) 04/15/19 11:19 ABG pH 7.350 pH Units (7.350-7.450) 04/14/19 05:45 POC ABG pCO2 69.5 (35-45) H 04/15/19 11:19 ABG pCO2 73.6 mm Hg 04/14/19 05:45 POC ABG pO2 77 (80-105) L 04/15/19 11:19 ABG pO2 89.2 mm Hg (80.0-90.0) 04/14/19 05:45 POC ABG HCO3 41.8 (22-26 mml/L) 04/15/19 11:19 POC ABG Total CO2 44 (23-27mmol/L) 04/15/19 11:19 POC ABG O2 Sat 94 04/15/19 11:19 ABG O2 Saturation 97.0 % (95.0-99.0) 04/14/19 05:45 PT/INR, D-dimer PT 12.5 Sec. (12.2-14.9) 04/13/19 14:10 INR 0.92 (0.87-1.13) 04/13/19 14:10 Abnormal lab findings: Abnormal Labs 04/13/19 04/13/19 04/13/19 12:47 14:10 14:10 WBC 13.7 H MCH 27 L RDW 16.9 H Seg Neuts % (Manual) 88.0 H Lymphocytes % (Manual) 2.0 L Seg Neutrophils # Man 12.1 H Lymphocytes # (Manual) 0.3 L POC ABG pH 7.313 L ABG pH POC ABG pCO2 POC ABG pO2 70 L ABG pO2 ABG HCO3 ABG Base Excess ABG Hemoglobin Oxyhemoglobin Potassium Chloride 93.6 L Carbon Dioxide 33 H BUN Creatinine Glucose 182 H POC Glucose Magnesium 2.90 H 04/13/19 04/13/19 04/14/19 18:26 21:30 04:43 WBC MCH 27 L RDW 16.7 H Seg Neuts % (Manual) 97.0 H Lymphocytes % (Manual) 1.0 L Seg Neutrophils # Man Lymphocytes # (Manual) 0.1 L POC ABG pH 7.298 L ABG pH 7.333 L POC ABG pCO2 POC ABG pO2 61 L ABG pO2 113.9 H ABG HCO3 37.2 H ABG Base Excess 9.1 H ABG Hemoglobin 11.1 L Oxyhemoglobin Potassium Chloride Carbon Dioxide BUN Creatinine Glucose POC Glucose Magnesium 04/14/19 04/14/19 04/14/19 04:43 05:45 12:35 WBC MCH RDW Seg Neuts % (Manual) Lymphocytes % (Manual) Seg Neutrophils # Man Lymphocytes # (Manual) POC ABG pH ABG pH POC ABG pCO2 69.3 H POC ABG pO2 ABG pO2 ABG HCO3 39.7 H ABG Base Excess 11.9 H ABG Hemoglobin 9.8 L Oxyhemoglobin 94.8 L Potassium 5.1 H Chloride 94.9 L Carbon Dioxide 38 H BUN Creatinine 0.6 L Glucose 177 H POC Glucose Magnesium 04/15/19 04/15/19 04/15/19 04:57 04:57 07:44 WBC MCH 27 L RDW 16.8 H Seg Neuts % (Manual) 87.0 H Lymphocytes % (Manual) 10.0 L Seg Neutrophils # Man 8.5 H Lymphocytes # (Manual) 1.0 L POC ABG pH ABG pH POC ABG pCO2 POC ABG pO2 ABG pO2 ABG HCO3 ABG Base Excess ABG Hemoglobin Oxyhemoglobin Potassium Chloride 93.4 L Carbon Dioxide 35 H BUN 24 H Creatinine Glucose 205 H POC Glucose 192 H Magnesium 04/15/19 04/15/19 04/15/19 10:32 11:19 16:15 WBC MCH RDW Seg Neuts % (Manual) Lymphocytes % (Manual) Seg Neutrophils # Man Lymphocytes # (Manual) POC ABG pH ABG pH POC ABG pCO2 69.5 H POC ABG pO2 77 L ABG pO2 ABG HCO3 ABG Base Excess ABG Hemoglobin Oxyhemoglobin Potassium Chloride Carbon Dioxide BUN Creatinine Glucose POC Glucose 251 H 185 H Magnesium 04/15/19 04/16/19 04/16/19 22:18 04:50 04:50 WBC MCH 27 L RDW 17.1 H Seg Neuts % (Manual) 91.0 H Lymphocytes % (Manual) 7.0 L Seg Neutrophils # Man 8.7 H Lymphocytes # (Manual) 0.7 L POC ABG pH ABG pH POC ABG pCO2 POC ABG pO2 ABG pO2 ABG HCO3 ABG Base Excess ABG Hemoglobin Oxyhemoglobin Potassium Chloride 93.0 L Carbon Dioxide 35 H BUN 25 H Creatinine 0.6 L Glucose 200 H POC Glucose 223 H Magnesium 2.50 H 04/16/19 04/16/19 04/17/19 07:42 11:49 04:49 WBC MCH 27 L RDW 16.7 H Seg Neuts % (Manual) 92.0 H Lymphocytes % (Manual) 2.0 L Seg Neutrophils # Man 8.9 H Lymphocytes # (Manual) 0.2 L POC ABG pH ABG pH POC ABG pCO2 POC ABG pO2 ABG pO2 ABG HCO3 ABG Base Excess ABG Hemoglobin Oxyhemoglobin Potassium Chloride Carbon Dioxide BUN Creatinine Glucose POC Glucose 184 H 197 H Magnesium 04/17/19 04:49 WBC MCH RDW Seg Neuts % (Manual) Lymphocytes % (Manual) Seg Neutrophils # Man Lymphocytes # (Manual) POC ABG pH ABG pH POC ABG pCO2 POC ABG pO2 ABG pO2 ABG HCO3 ABG Base Excess ABG Hemoglobin Oxyhemoglobin Potassium Chloride 95.8 L Carbon Dioxide BUN 29 H Creatinine Glucose 234 H POC Glucose Magnesium
--- NOTE | 2019-04-18 14:20 | Consultation ---
History of Present Illness Consult date: 04/18/19 Consult reason: tachycardia History of present illness: This is a 63-year old woman with chronic lung disease, chronic respiratory failure on home oxygen who is admitted with worsening shortness of breath. A cardiac consultation has been requested for transient tachycardia overnight. An ECG done is sinus tachycardia with nonspecific Twave changes. It is unclear if the tachycardia was a result of nebulizer treatment. The tachycardia has since resolved. Telemetry strips shows a stable sinus rhythm. Past History Past Medical History: COPD, hyperlipidemia, other (MEME) Past Surgical History: cholecystectomy, hysterectomy, Other (Breast surgery) Social history: . denies: smoking, alcohol abuse, prescription drug abuse Family history: hypertension Medications and Allergies Allergies Allergy/AdvReac Type Severity Reaction Status Date / Time carisoprodol [From Soma] Allergy Rash Verified 07/12/14 18:17 Home Medications Medication Instructions Recorded Confirmed Last Taken Type ALBUTEROL Inhaler (OR & NICU) 2 puff IH Q4H PRN 02/19/14 04/13/19 02/19/14 History [ProAir HFA Inhaler] Albuterol Sulfate [Albuterol 0.63% 3 ml IH PRN PRN 02/19/14 04/13/19 07/12/14 History NEBS] Aspirin [Aspirin BABY CHEW TAB] 81 mg PO DAILY 02/19/14 04/13/19 07/11/14 History Atorvastatin (Nf) [Lipitor] 10 mg PO QHS 02/19/14 04/13/19 07/11/14 History Budesoni/Formotero 160-4.5(Nf) 2 puff IH BID 02/19/14 04/13/19 02/19/14 History [Symbicort 160-4.5 (Nf)] Metoprolol [Lopressor TAB] 1.5 tab PO BID 02/19/14 04/13/19 02/19/14 History Mirtazapine 15 mg PO QHS 02/19/14 04/13/19 02/18/14 History Multivitamin [Multi-Vitamin Daily] 1 tab PO DAILY 02/19/14 04/13/19 07/11/14 History Celexa 40 mg PO DAILY 04/13/19 04/13/19 Unknown History Thiamine 100 mg PO BID 04/13/19 04/13/19 Unknown History guaiFENesin 1,200 mg PO BID 04/13/19 04/13/19 Unknown History Travoprost [Travatan Z] 2.5 ml OU HS 04/15/19 04/15/19 04/12/19 History Active Meds: Active Medications Acetaminophen (Tylenol) 650 mg PO Q6H PRN PRN Reason: Headache Last Admin: 04/17/19 20:12 Dose: 650 mg Documented by: Albuterol (Proventil) 2.5 mg IH Q3HRT PRN PRN Reason: Shortness Of Breath Last Admin: 04/13/19 18:32 Dose: 2.5 mg Documented by: Albuterol/Ipratropium (Duoneb *Not For Prn Use*) 1 ampul IH QIDRT [facility] Last Admin: 04/18/19 08:17 Dose: 1 ampul Documented by: Arformoterol Tartrate (Brovana Nebu) 15 mcg IH Q12HRT [facility] Last Admin: 04/18/19 08:17 Dose: 15 mcg Documented by: Aspirin (Baby Aspirin) 81 mg PO DAILY [facility] Last Admin: 04/18/19 10:22 Dose: 81 mg Documented by: Atorvastatin Calcium (Atorvastatin) 10 mg PO QHS [facility] Last Admin: 04/17/19 21:57 Dose: 10 mg Documented by: Budesonide (Pulmicort) 1 mg IH Q12HRT [facility] Last Admin: 04/18/19 08:16 Dose: 1 mg Documented by: Citalopram Hydrobromide (Celexa) 40 mg PO QDAY [facility] Last Admin: 04/18/19 10:22 Dose: 40 mg Documented by: Docusate Sodium (Colace) 100 mg PO BID [facility] Last Admin: 04/18/19 10:22 Dose: 100 mg Documented by: Enoxaparin Sodium (Enoxaparin) 40 mg SUB-Q QDAY@2200 [facility] Last Admin: 04/17/19 21:57 Dose: 40 mg Documented by: Guaifenesin (Mucinex Er) 1,200 mg PO BID [facility] Last Admin: 04/18/19 10:22 Dose: 1,200 mg Documented by: Latanoprost (Latanoprost 0.005%) 1 drops OU QHS [facility] Last Admin: 04/18/19 05:19 Dose: Not Given Documented by: Lorazepam (Ativan) 1 mg IV Q8H PRN PRN Reason: Anxiety Last Admin: 04/18/19 10:21 Dose: 1 mg Documented by: Methylprednisolone Sodium Succinate (Solu-Medrol) 60 mg IV Q8HR [facility] Metoprolol Tartrate (Metoprolol) 25 mg PO BID [facility] Last Admin: 04/18/19 10:34 Dose: 25 mg Documented by: Mirtazapine (Remeron) 15 mg PO QHS [facility] Last Admin: 04/17/19 21:58 Dose: 15 mg Documented by: Multivitamins (Theragran Tab) 1 each PO DAILY [facility] Last Admin: 04/18/19 10:22 Dose: 1 each Documented by: Senna (Senokot) 8.6 mg PO Q12H PRN PRN Reason: Laxative Effect Sodium Chloride (Sodium Chloride Flush Syringe 10 Ml) 10 ml IV BID [facility] Last Admin: 04/18/19 13:31 Dose: Not Given Documented by: Sodium Chloride (Sodium Chloride Flush Syringe 10 Ml) 10 ml IV PRN PRN PRN Reason: LINE FLUSH Thiamine HCl (Vitamin B-1) 100 mg PO BID [facility] Last Admin: 04/18/19 10:22 Dose: 100 mg Documented by: Physical Examination Vital Signs Temp Pulse Resp BP Pulse Ox 98.2 F 96 H 16 138/70 96 04/13/19 12:19 04/13/19 12:19 04/13/19 12:19 04/13/19 12:19 04/13/19 12:19 General appearance: no acute distress HEENT: Positive: PERRL Neck: Positive: trachea midline Cardiac: Positive: Reg Rate and Rhythm Lungs: Positive: Decreased Breath Sounds Results 04/17/19 04:49 04/17/19 04:49
[2019-04-18] MEDS: dilTIAZem 60 MG TAB PO SCH (17:55)
[2019-04-18] MEDS: ENOXAPARIN 40 MG/0.4 ML INJ SUB-Q SCH (21:53)
[2019-04-18] MEDS: ACETAMINOPHEN 325 MG TAB PO PRN (21:53)
[2019-04-18] MEDS: MIRTAZAPINE 15 MG TAB PO SCH (21:53)
[2019-04-19] MEDS: LATANOPROST 0.005% OPHTH SOLN 2.5 ML OU SCH ×2 (00:13→21:20)
[2019-04-19] MEDS: dilTIAZem 60 MG TAB PO SCH ×5 (00:15→23:43)
[2019-04-19] MEDS: methylPREDNISolone Sod Succinate 40 MG/1 ML INJ IV SCH ×2 (06:35→13:43)
[2019-04-19] MEDS: BUDESONIDE 0.5 MG/2 ML NEBU IH SCH ×3 (07:15→20:17)
[2019-04-19] MEDS: IPRATROPIUM/ALBUTEROL SULFATE 3 ML AMPUL.NEB IH SCH ×2 (07:16→13:43)
[2019-04-19] MEDS: ARFORMOTEROL 15 MCG/2 ML NEBU IH SCH ×2 (07:17→20:18)
--- NOTE | 2019-04-19 11:00 | Progress Note ---
<MANANLA - Last Filed: 04/19/19 11:00> Assessment and Plan Atrial tachycardia uncertain if the tachycardias are triggered by albuterol bronchodilator treatments. Chronic respiratory failure COPD exacerbation on home O2 Chronic tobacco abuse Chronic anxiety 2014 cardiac catheterization demonstrated no significant coronary artery disease. Ejection fraction 60% Recommendations: Consider a switch to Xopenex for bronchodilator management to reduce likelihood of tachyarrhythmias. Continue diltiazem for management of atrial tachyarrhythmias. Echocardiogram will be ordered for left ventricular function assessment. Subjective Date of service: 04/19/19 Principal diagnosis: COPD Interval history: Patient is resting in bed comfortably. No distress noted. Family member is at the bedside. Stable sinus rhythm on telemetry. No cardiac events reported overnight. Objective Vital Signs Temp Pulse Pulse Pulse Resp Resp BP 04/19/19 07:42 97.6 F 18 165/82 04/19/19 07:21 04/19/19 07:17 72 18 04/19/19 07:00 69 04/19/19 03:58 97.2 F L 69 16 137/61 04/19/19 00:00 04/18/19 23:46 97.2 F L 74 18 131/62 04/18/19 23:14 82 18 04/18/19 19:50 04/18/19 19:49 70 18 04/18/19 19:40 98.1 F 82 19 99/59 04/18/19 17:55 95 H 147/78 04/18/19 17:11 94 H 147/78 04/18/19 16:06 93 H 18 04/18/19 15:50 95 H 19 164/87 04/18/19 15:00 84 15 165/79 04/18/19 14:00 87 20 177/85 04/18/19 13:40 94 H 19 04/18/19 13:00 17 177/85 04/18/19 12:00 97.4 F L 117 H 108 H 13 98/55 04/18/19 11:00 85 21 Pulse Ox 04/19/19 07:42 04/19/19 07:21 94 04/19/19 07:17 04/19/19 07:00 04/19/19 03:58 96 04/19/19 00:00 97 04/18/19 23:46 97 04/18/19 23:14 04/18/19 19:50 92 04/18/19 19:49 04/18/19 19:40 90 04/18/19 17:55 04/18/19 17:11 95 04/18/19 16:06 04/18/19 15:50 93 04/18/19 15:00 92 04/18/19 14:00 95 04/18/19 13:40 04/18/19 13:00 91 04/18/19 12:00 96 04/18/19 11:00 93 - Physical Examination General: No Apparent Distress HEENT: Positive: PERRL Neck: Positive: trachea midline Cardiac: Positive: Reg Rate and Rhythm Lungs: Positive: Decreased Breath Sounds Neuro: Positive: Grossly Intact <DENISE ROSALES - Last Filed: 04/25/19 23:36> Assessment and Plan I have seen and evaluated the patient and agree with the assessment and plan.
--- NOTE | 2019-04-19 11:15 | Progress Note ---
Assessment and Plan Assessment and plan: Acute on chronic hypoxic respiratory failure. Etiology secondary to COPD exacerbation, MEME and OHS. Continue BiPAP as clinically indicated. Keep nothing by mouth for now. Pulmonary following. Steroid taper per pulmonary. Acute severe COPD exacerbation. IV antibiotic therapy, IV steroid therapy, pulse oximetry, nebulizer therapy Atrial tachycardia episodes Cardiology following Acute bronchitis. Continue Levaquin. Obesity hypoventilation syndrome. Hypertension. Continue antihypertensive medications. Patient stable to transfer to [facility] History Interval history: Less shortness of breath Palpitations Hospitalist Physical - Physical exam Narrative exam: Gen: Not in acute distress, lying in bed, HEENT: Normocephalic, atraumatic Neck: supple, no JVD Heart: S1 and S2 irreg, no murmurs, rubs or gallop Lungs: Bilateral rhonchi, wheeze, decreased breath sounds Abd: soft, NT, non distended, normal BS Ext: Bilateral lower ext edema no clubbing, no cyanosis Neuro:Awake,alert, oriented X 3, moves all ext - Constitutional Vitals: Temp Pulse Resp BP Pulse Ox 97.6 F 72 18 165/82 94 04/19/19 07:42 04/19/19 07:17 04/19/19 07:42 04/19/19 07:42 04/19/19 07:21 General appearance: Present: obese Results - Labs CBC & Chem 7: 04/17/19 04:49 04/17/19 04:49 Labs: Laboratory Last Values WBC 9.7 K/mm3 (4.5-11.0) 04/17/19 04:49 RBC 4.12 M/mm3 (3.65-5.03) 04/17/19 04:49 Hgb 11.2 gm/dl (10.1-14.3) 04/17/19 04:49 Hct 34.7 % (30.3-42.9) 04/17/19 04:49 MCV 84 fl (79-97) 04/17/19 04:49 MCH 27 pg (28-32) L 04/17/19 04:49 MCHC 32 % (30-34) 04/17/19 04:49 RDW 16.7 % (13.2-15.2) H 04/17/19 04:49 Plt Count 302 K/mm3 (140-440) 04/17/19 04:49 Add Manual Diff Complete 04/17/19 04:49 Total Counted 100 04/17/19 04:49 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 04/17/19 04:49 Seg Neuts % (Manual) 92.0 % (40.0-70.0) H 04/17/19 04:49 Band Neutrophils % 0 % 04/17/19 04:49 Lymphocytes % (Manual) 2.0 % (13.4-35.0) L 04/17/19 04:49 Reactive Lymphs % (Man) 0 % 04/17/19 04:49 Monocytes % (Manual) 3.0 % (0.0-7.3) 04/17/19 04:49 Eosinophils % (Manual) 0 % (0.0-4.3) 04/17/19 04:49 Basophils % (Manual) 0 % (0.0-1.8) 04/17/19 04:49 Metamyelocytes % 3.0 % 04/17/19 04:49 Myelocytes % 0 % 04/17/19 04:49 Promyelocytes % 0 % 04/17/19 04:49 Blast Cells % 0 % 04/17/19 04:49 Nucleated RBC % Not Reportable 04/17/19 04:49 Seg Neutrophils # Man 8.9 K/mm3 (1.8-7.7) H 04/17/19 04:49 Band Neutrophils # 0.0 K/mm3 04/17/19 04:49 Lymphocytes # (Manual) 0.2 K/mm3 (1.2-5.4) L 04/17/19 04:49 Abs React Lymphs (Man) 0.0 K/mm3 04/17/19 04:49 Monocytes # (Manual) 0.3 K/mm3 (0.0-0.8) 04/17/19 04:49 Eosinophils # (Manual) 0.0 K/mm3 (0.0-0.4) 04/17/19 04:49 Basophils # (Manual) 0.0 K/mm3 (0.0-0.1) 04/17/19 04:49 Metamyelocytes # 0.3 K/mm3 04/17/19 04:49 Myelocytes # 0.0 K/mm3 04/17/19 04:49 Promyelocytes # 0.0 K/mm3 04/17/19 04:49 Blast Cells # 0.0 K/mm3 04/17/19 04:49 WBC Morphology Not Reportable 04/17/19 04:49 Hypersegmented Neuts Not Reportable 04/17/19 04:49 Hyposegmented Neuts Not Reportable 04/17/19 04:49 Hypogranular Neuts Not Reportable 04/17/19 04:49 Smudge Cells Not Reportable 04/17/19 04:49 Toxic Granulation Not Reportable 04/17/19 04:49 Toxic Vacuolation Not Reportable 04/17/19 04:49 Dohle Bodies Not Reportable 04/17/19 04:49 Pelger-Huet Anomaly Not Reportable 04/17/19 04:49 Basilia Rods Not Reportable 04/17/19 04:49 Platelet Estimate Consistent w auto 04/17/19 04:49 Clumped Platelets Not Reportable 04/17/19 04:49 Plt Clumps, EDTA Not Reportable 04/17/19 04:49 Large Platelets Few 04/17/19 04:49 Giant Platelets Not Reportable 04/17/19 04:49 Platelet Satelliting Not Reportable 04/17/19 04:49 Plt Morphology Comment Not Reportable 04/17/19 04:49 RBC Morphology Not Reportable 04/17/19 04:49 Dimorphic RBCs Not Reportable 04/17/19 04:49 Polychromasia Not Reportable 04/17/19 04:49 Hypochromasia Not Reportable 04/17/19 04:49 Poikilocytosis Not Reportable 04/17/19 04:49 Anisocytosis 1+ 04/17/19 04:49 Microcytosis Not Reportable 04/17/19 04:49 Macrocytosis Not Reportable 04/17/19 04:49 Spherocytes Not Reportable 04/17/19 04:49 Pappenheimer Bodies Not Reportable 04/17/19 04:49 Sickle Cells Not Reportable 04/17/19 04:49 Target Cells Not Reportable 04/17/19 04:49 Tear Drop Cells Not Reportable 04/17/19 04:49 Ovalocytes Not Reportable 04/17/19 04:49 Stomatocytes Few 04/16/19 04:50 Helmet Cells Not Reportable 04/17/19 04:49 [place] Bodies Not Reportable 04/17/19 04:49 [place] Rings Not Reportable 04/17/19 04:49 Zachary Cells Not Reportable 04/17/19 04:49 Bite Cells Not Reportable 04/17/19 04:49 Crenated Cell Not Reportable 04/17/19 04:49 Elliptocytes Not Reportable 04/17/19 04:49 Acanthocytes (Spur) Not Reportable 04/17/19 04:49 Rouleaux Not Reportable 04/17/19 04:49 Hemoglobin C Crystals Not Reportable 04/17/19 04:49 Schistocytes Not Reportable 04/17/19 04:49 Malaria parasites Not Reportable 04/17/19 04:49 Ronak Bodies Not Reportable 04/17/19 04:49 Hem Pathologist Commnt No 04/17/19 04:49 PT 12.5 Sec. (12.2-14.9) 04/13/19 14:10 INR 0.92 (0.87-1.13) 04/13/19 14:10 APTT 34.1 Sec. (24.2-36.6) 04/13/19 14:10 POC ABG pH 7.387 (7.35-7.45) 04/15/19 11:19 ABG pH 7.350 pH Units (7.350-7.450) 04/14/19 05:45 POC ABG pCO2 69.5 (35-45) H 04/15/19 11:19 ABG pCO2 73.6 mm Hg 04/14/19 05:45 POC ABG pO2 77 (80-105) L 04/15/19 11: ABG pO2 89.2 mm Hg (80.0-90.0) 04/14/19 05:45 POC ABG HCO3 41.8 (22-26 mml/L) 04/15/19 11:19 ABG HCO3 39.7 mmol/L (20.0-26.0) H 04/14/19 05:45 POC ABG Total CO2 44 (23-27mmol/L) 04/15/19 11:19 POC ABG O2 Sat 94 04/15/19 11:19 ABG O2 Saturation 97.0 % (95.0-99.0) 04/14/19 05:45 ABG O2 Content 13.2 (0.0-44) 04/14/19 05:45 POC ABG Base Excess 17 ((-2) - (+3)mmol/L) 04/15/19 11:19 ABG Base Excess 11.9 mmol/L (-2.0-3.0) H 04/14/19 05:45 ABG Hemoglobin 9.8 gm/dl (12.0-16.0) L 04/14/19 05:45 ABG Carboxyhemoglobin 1.8 % (0.0-5.0) 04/14/19 05:45 ABG Methemoglobin 0.5 % (0.0-1.5) 04/14/19 05:45 Oxyhemoglobin 94.8 % (95.0-99.0) L 04/14/19 05:45 FiO2 30 % 04/15/19 11:19 Sodium 142 mmol/L (137-145) 04/17/19 04:49 Potassium 4.3 mmol/L (3.6-5.0) 04/17/19 04:49 Chloride 95.8 mmol/L (98-107) L 04/17/19 04:49 Carbon Dioxide 30 mmol/L (22-30) 04/17/19 04:49 Anion Gap 21 mmol/L 04/17/19 04:49 BUN 29 mg/dL (7-17) H 04/17/19 04:49 Creatinine 0.7 mg/dL (0.7-1.2) 04/17/19 04:49 Estimated GFR > 60 ml/min 04/17/19 04:49 BUN/Creatinine Ratio 41 % 04/17/19 04:49 Glucose 234 mg/dL (65-100) H 04/17/19 04:49 POC Glucose 197 (70-105) H 04/16/19 11:49 Calcium 8.7 mg/dL (8.4-10.2) 04/17/19 04:49 Magnesium 2.50 mg/dL (1.7-2.3) H 04/16/19 04:50 TSH 0.416 mlU/mL (0.270-4.200) 04/18/19 15:12 Free T4 0.67 ng/dL (0.76-1.46) L 04/18/19 15:12 Active Medications - Current Medications Current Medications: Generic Name Dose Route Start Last Admin Trade Name Freq PRN Reason Stop Dose Admin Acetaminophen 650 mg 04/17/19 19:36 04/18/19 21:53 Tylenol PO 650 mg Q6H PRN Administration Headache Albuterol 2.5 mg 04/13/19 15:02 04/13/19 18:32 Proventil IH 2.5 mg Q3HRT PRN Administration Shortness Of Breath Albuterol/Ipratropium 1 ampul 04/16/19 08:00 04/19/19 07:16 Duoneb *Not For Prn Use* IH 1 ampul QIDRT NIYA Administration Arformoterol Tartrate 15 mcg 04/13/19 20:00 04/19/19 07:17 Brovana Nebu IH 15 mcg Q12HRT NIYA Administration Aspirin 81 mg 04/14/19 10:00 04/18/19 10:22 Baby Aspirin PO 81 mg DAILY NIYA Administration Atorvastatin Calcium 10 mg 04/13/19 22:00 04/18/19 21:53 Atorvastatin PO 10 mg QHS NIYA Administration Budesonide 1 mg 04/13/19 23:55 04/19/19 07:16 Pulmicort IH 1 mg Q12HRT NIYA Administration Citalopram Hydrobromide 40 mg 04/14/19 10:00 04/18/19 10:22 Celexa PO 40 mg QDAY NIYA Administration Diltiazem HCl 60 mg 04/18/19 18:00 04/19/19 06:35 Cardizem PO 60 mg Q6HR NIYA Administration Docusate Sodium 100 mg 04/16/19 22:00 04/18/19 21:52 Colace PO 100 mg BID NIYA Administration Enoxaparin Sodium 40 mg 04/15/19 22:59 04/18/19 21:53 Enoxaparin SUB-Q 40 mg QDAY@2200 NIYA Administration Guaifenesin 1,200 mg 04/13/19 22:00 04/18/19 21:52 Mucinex Er PO 1,200 mg BID NIYA Administration Latanoprost 1 drops 04/16/19 22:00 04/19/19 00:13 Latanoprost 0.005% OU 1 drops QHS NIYA Administration Lorazepam 1 mg 04/13/19 17:41 04/18/19 21:54 Ativan IV 1 mg Q8H PRN Administration Anxiety Methylprednisolone Sodium Succinate 60 mg 04/18/19 06:36 04/19/19 06:35 Solu-Medrol IV 60 mg Q8HR NIYA Administration Mirtazapine 15 mg 04/13/19 22:00 04/18/19 21:53 Remeron PO 15 mg QHS NIYA Administration Multivitamins 1 each 04/14/19 10:00 04/18/19 10:22 Theragran Tab PO 1 each DAILY NIYA Administration Senna 8.6 mg 04/16/19 19:48 04/18/19 22:04 Senokot PO 8.6 mg Q12H PRN Administration Laxative Effect Sodium Chloride 10 ml 04/13/19 22:00 04/18/19 22:50 Sodium Chloride Flush Syringe 10 Ml IV 10 ml BID NIYA Administration Sodium Chloride 10 ml 04/13/19 15:02 Sodium Chloride Flush Syringe 10 Ml IV PRN PRN LINE FLUSH Thiamine HCl 100 mg 04/13/19 22:00 04/18/19 21:52 Vitamin B-1 PO 100 mg BID NIYA Administration
[2019-04-19] MEDS: MULTIVITAMINS ,THERAPEUTIC TAB PO SCH (13:44)
[2019-04-19] MEDS: guaiFENesin ER 600 MG TAB PO SCH ×2 (13:44→21:21)
[2019-04-19] MEDS: ASPIRIN 81 MG TAB CHEW PO SCH (13:45)
[2019-04-19] MEDS: THIAMINE 100 MG TAB PO SCH ×2 (13:45→21:21)
[2019-04-19] MEDS: CITALOPRAM 20 MG TAB PO SCH (13:45)
[2019-04-19] MEDS: DOCUSATE SODIUM 100 MG CAP PO SCH ×2 (13:46→21:21)
--- NOTE | 2019-04-19 13:50 | Progress Note ---
Assessment and Plan 63 y/o female with chronic respiratory hypercapnic respiratory failure with worsening dyspnea, most likely secondary to acute bronchitis 1. Still recommend a total of 7 days of abx. 2. Changed to solumedrol 60 daily 3. Continue PPV at night and when sleeping (PRN) 4. Should be ready for discharge in the next 18-24 hours. Subjective Date of service: 04/19/19 Principal diagnosis: COPD Interval history: No acute events. Reviewed cards note. Objective Vital Signs - 12hr 04/19/19 04/19/19 04/19/19 03:58 07:00 07:17 Temperature 97.2 F L Pulse Rate 69 69 Pulse Rate [ 72 Anterior Bilateral Throughout] Respiratory 16 Rate Respiratory 18 Rate [Anterior Bilateral Throughout] Blood Pressure 137/61 O2 Sat by Pulse 96 Oximetry 04/19/19 04/19/19 07:21 07:42 Temperature 97.6 F Pulse Rate Pulse Rate [ Anterior Bilateral Throughout] Respiratory 18 Rate Respiratory Rate [Anterior Bilateral Throughout] Blood Pressure 165/82 O2 Sat by Pulse 94 Oximetry Constitutional: no acute distress, alert Eyes: non-icteric ENT: oropharynx moist Neck: supple Effort: mildly labored Ascultation: Bilateral: diminished breath sounds, wheezes Percussion: Bilateral: not dull Tactile fremitus: Bilateral: normal Cardiovascular: regular rate and rhythm (no mrg) Gastrointestinal: normoactive bowel sounds, soft, non-tender, non-distended Integumentary: normal Extremities: no edema, pink and warm, pulses normal Neurologic: normal mental status, non-focal exam, pupils equal and round, CN II- XII normal Psychiatric: mood appropriate, affect normal CBC and BMP: 04/17/19 04:49 04/17/19 04:49 ABG, PT/INR, D-dimer: ABG POC ABG pH 7.387 (7.35-7.45) 04/15/19 11: ABG pH 7.350 pH Units (7.350-7.450) 04/14/19 05:45 POC ABG pCO2 69.5 (35-45) H 04/15/19 11: ABG pCO2 73.6 mm Hg 04/14/19 05:45 POC ABG pO2 77 (80-105) L 04/15/19 11: ABG pO2 89.2 mm Hg (80.0-90.0) 04/14/19 05:45 POC ABG HCO3 41.8 (22-26 mml/L) 04/15/19 11:19 POC ABG Total CO2 44 (23-27mmol/L) 04/15/19 11:19 POC ABG O2 Sat 94 04/15/19 11:19 ABG O2 Saturation 97.0 % (95.0-99.0) 04/14/19 05:45 PT/INR, D-dimer PT 12.5 Sec. (12.2-14.9) 04/13/19 14:10 INR 0.92 (0.87-1.13) 04/13/19 14:10 Abnormal lab findings: Abnormal Labs 04/13/19 04/13/19 04/13/19 12:47 14:10 14:10 WBC 13.7 H MCH 27 L RDW 16.9 H Seg Neuts % (Manual) 88.0 H Lymphocytes % (Manual) 2.0 L Seg Neutrophils # Man 12.1 H Lymphocytes # (Manual) 0.3 L POC ABG pH 7.313 L ABG pH POC ABG pCO2 POC ABG pO2 70 L ABG pO2 ABG HCO3 ABG Base Excess ABG Hemoglobin Oxyhemoglobin Potassium Chloride 93.6 L Carbon Dioxide 33 H BUN Creatinine Glucose 182 H POC Glucose Magnesium 2.90 H Free T4 04/13/19 04/13/19 04/14/19 18:26 21:30 04:43 WBC MCH 27 L RDW 16.7 H Seg Neuts % (Manual) 97.0 H Lymphocytes % (Manual) 1.0 L Seg Neutrophils # Man Lymphocytes # (Manual) 0.1 L POC ABG pH 7.298 L ABG pH 7.333 L POC ABG pCO2 POC ABG pO2 61 L ABG pO2 113.9 H ABG HCO3 37.2 H ABG Base Excess 9.1 H ABG Hemoglobin 11.1 L Oxyhemoglobin Potassium Chloride Carbon Dioxide BUN Creatinine Glucose POC Glucose Magnesium Free T4 04/14/19 04/14/19 04/14/19 04:43 05:45 12:35 WBC MCH RDW Seg Neuts % (Manual) Lymphocytes % (Manual) Seg Neutrophils # Man Lymphocytes # (Manual) POC ABG pH ABG pH POC ABG pCO2 69.3 H POC ABG pO2 ABG pO2 ABG HCO3 39.7 H ABG Base Excess 11.9 H ABG Hemoglobin 9.8 L Oxyhemoglobin 94.8 L Potassium 5.1 H Chloride 94.9 L Carbon Dioxide 38 H BUN Creatinine 0.6 L Glucose 177 H POC Glucose Magnesium Free T4 04/15/19 04/15/19 04/15/19 04:57 04:57 07:44 WBC MCH 27 L RDW 16.8 H Seg Neuts % (Manual) 87.0 H Lymphocytes % (Manual) 10.0 L Seg Neutrophils # Man 8.5 H Lymphocytes # (Manual) 1.0 L POC ABG pH ABG pH POC ABG pCO2 POC ABG pO2 ABG pO2 ABG HCO3 ABG Base Excess ABG Hemoglobin Oxyhemoglobin Potassium Chloride 93.4 L Carbon Dioxide 35 H BUN 24 H Creatinine Glucose 205 H POC Glucose 192 H Magnesium Free T4 04/15/19 04/15/19 04/15/19 10:32 11:19 16:15 WBC MCH RDW Seg Neuts % (Manual) Lymphocytes % (Manual) Seg Neutrophils # Man Lymphocytes # (Manual) POC ABG pH ABG pH POC ABG pCO2 69.5 H POC ABG pO2 77 L ABG pO2 ABG HCO3 ABG Base Excess ABG Hemoglobin Oxyhemoglobin Potassium Chloride Carbon Dioxide BUN Creatinine Glucose POC Glucose 251 H 185 H Magnesium Free T4 04/15/19 04/16/19 04/16/19 22:18 04:50 04:50 WBC MCH 27 L RDW 17.1 H Seg Neuts % (Manual) 91.0 H Lymphocytes % (Manual) 7.0 L Seg Neutrophils # Man 8.7 H Lymphocytes # (Manual) 0.7 L POC ABG pH ABG pH POC ABG pCO2 POC ABG pO2 ABG pO2 ABG HCO3 ABG Base Excess ABG Hemoglobin Oxyhemoglobin Potassium Chloride 93.0 L Carbon Dioxide 35 H BUN 25 H Creatinine 0.6 L Glucose 200 H POC Glucose 223 H Magnesium 2.50 H Free T4 04/16/19 04/16/19 04/17/19 07:42 11:49 04:49 WBC MCH 27 L RDW 16.7 H Seg Neuts % (Manual) 92.0 H Lymphocytes % (Manual) 2.0 L Seg Neutrophils # Man 8.9 H Lymphocytes # (Manual) 0.2 L POC ABG pH ABG pH POC ABG pCO2 POC ABG pO2 ABG pO2 ABG HCO3 ABG Base Excess ABG Hemoglobin Oxyhemoglobin Potassium Chloride Carbon Dioxide BUN Creatinine Glucose POC Glucose 184 H 197 H Magnesium Free T4 04/17/19 04/18/19 04:49 15:12 WBC MCH RDW Seg Neuts % (Manual) Lymphocytes % (Manual) Seg Neutrophils # Man Lymphocytes # (Manual) POC ABG pH ABG pH POC ABG pCO2 POC ABG pO2 ABG pO2 ABG HCO3 ABG Base Excess ABG Hemoglobin Oxyhemoglobin Potassium Chloride 95.8 L Carbon Dioxide BUN 29 H Creatinine Glucose 234 H POC Glucose Magnesium Free T4 0.67 L
[2019-04-19] MEDS: LORazepam 2 MG/ML VIAL IV PRN ×3 (13:58→23:43)
[2019-04-19] MEDS: ENOXAPARIN 40 MG/0.4 ML INJ SUB-Q SCH (21:20)
[2019-04-19] MEDS: MIRTAZAPINE 15 MG TAB PO SCH (21:21)
[2019-04-20] MEDS: dilTIAZem 60 MG TAB PO SCH ×4 (06:23→23:48)
[2019-04-20] MEDS: ACETAMINOPHEN 325 MG TAB PO PRN (06:29)
[2019-04-20] MEDS: ARFORMOTEROL 15 MCG/2 ML NEBU IH SCH ×2 (08:47→20:19)
[2019-04-20] MEDS: BUDESONIDE 0.5 MG/2 ML NEBU IH SCH ×2 (08:48→20:20)
[2019-04-20] MEDS: MULTIVITAMINS ,THERAPEUTIC TAB PO SCH (09:33)
[2019-04-20] MEDS: THIAMINE 100 MG TAB PO SCH ×2 (09:34→21:34)
[2019-04-20] MEDS: DOCUSATE SODIUM 100 MG CAP PO SCH ×2 (09:34→21:33)
[2019-04-20] MEDS: ASPIRIN 81 MG TAB CHEW PO SCH (09:34)
[2019-04-20] MEDS: LORazepam 2 MG/ML VIAL IV PRN ×2 (09:34→21:34)
[2019-04-20] MEDS: guaiFENesin ER 600 MG TAB PO SCH ×2 (09:34→21:33)
[2019-04-20] MEDS: CITALOPRAM 20 MG TAB PO SCH (09:34)
[2019-04-20] MEDS: methylPREDNISolone Sod Succinate 40 MG/1 ML INJ IV SCH (09:36)
--- NOTE | 2019-04-20 13:05 | Progress Note ---
Assessment and Plan 63 y/o female with chronic respiratory hypercapnic respiratory failure with worsening dyspnea, most likely secondary to acute bronchitis 1. Still recommend a total of 7 days of abx (total), this can be finished as an outpatient. 2. Changed to solumedrol 60 daily, at discharge switch to Pred 40 and taper over two weeks in 3 day intervals dropping buy 10mg each interval 3. Continue PPV at night and when sleeping (PRN) 4. No objection to discharge. Will see as needed. Subjective Date of service: 04/20/19 Principal diagnosis: COPD Interval history: No acute events. Asleep. No family at bedside. Objective Vital Signs - 12hr 04/20/19 04/20/19 04/20/19 04:10 07:29 08:00 Temperature 97.8 F Pulse Rate 75 Pulse Rate [ 65 Anterior Bilateral Throughout] Respiratory 16 20 Rate Respiratory 18 Rate [Anterior Bilateral Throughout] Respiratory Rate [denies] Blood Pressure 140/66 O2 Sat by Pulse 97 Oximetry 04/20/19 04/20/19 04/20/19 08:45 08:50 09:18 Temperature 98.7 F Pulse Rate 93 H Pulse Rate [ 72 Anterior Bilateral Throughout] Respiratory 18 Rate Respiratory 22 Rate [Anterior Bilateral Throughout] Respiratory Rate [denies] Blood Pressure 151/59 O2 Sat by Pulse 94 96 Oximetry 04/20/19 04/20/19 10:00 10:34 Temperature Pulse Rate 84 Pulse Rate [ Anterior Bilateral Throughout] Respiratory 20 Rate Respiratory Rate [Anterior Bilateral Throughout] Respiratory 18 Rate [denies] Blood Pressure O2 Sat by Pulse 98 Oximetry Constitutional: no acute distress, alert Eyes: non-icteric ENT: oropharynx moist Neck: supple Effort: mildly labored Ascultation: Bilateral: diminished breath sounds, wheezes Percussion: Bilateral: not dull Tactile fremitus: Bilateral: normal Cardiovascular: regular rate and rhythm (no mrg) Gastrointestinal: normoactive bowel sounds, soft, non-tender, non-distended Integumentary: normal Extremities: no edema, pink and warm, pulses normal Neurologic: normal mental status, non-focal exam, pupils equal and round, CN II- XII normal Psychiatric: mood appropriate, affect normal CBC and BMP: 04/17/19 04:49 04/17/19 04:49 ABG, PT/INR, D-dimer: ABG POC ABG pH 7.387 (7.35-7.45) 04/15/19 11: ABG pH 7.350 pH Units (7.350-7.450) 04/14/19 05:45 POC ABG pCO2 69.5 (35-45) H 04/15/19 11:19 ABG pCO2 73.6 mm Hg 04/14/19 05:45 POC ABG pO2 77 (80-105) L 04/15/19 11: ABG pO2 89.2 mm Hg (80.0-90.0) 04/14/19 05:45 POC ABG HCO3 41.8 (22-26 mml/L) 04/15/19 11:19 POC ABG Total CO2 44 (23-27mmol/L) 04/15/19 11:19 POC ABG O2 Sat 94 04/15/19 11: ABG O2 Saturation 97.0 % (95.0-99.0) 04/14/19 05:45 PT/INR, D-dimer PT 12.5 Sec. (12.2-14.9) 04/13/19 14:10 INR 0.92 (0.87-1.13) 04/13/19 14:10 Abnormal lab findings: Abnormal Labs 04/13/19 04/13/19 04/13/19 12:47 14:10 14:10 WBC 13.7 H MCH 27 L RDW 16.9 H Seg Neuts % (Manual) 88.0 H Lymphocytes % (Manual) 2.0 L Seg Neutrophils # Man 12.1 H Lymphocytes # (Manual) 0.3 L POC ABG pH 7.313 L ABG pH POC ABG pCO2 POC ABG pO2 70 L ABG pO2 ABG HCO3 ABG Base Excess ABG Hemoglobin Oxyhemoglobin Potassium Chloride 93.6 L Carbon Dioxide 33 H BUN Creatinine Glucose 182 H POC Glucose Magnesium 2.90 H Free T4 04/13/19 04/13/19 04/14/19 18:26 21:30 04:43 WBC MCH 27 L RDW 16.7 H Seg Neuts % (Manual) 97.0 H Lymphocytes % (Manual) 1.0 L Seg Neutrophils # Man Lymphocytes # (Manual) 0.1 L POC ABG pH 7.298 L ABG pH 7.333 L POC ABG pCO2 POC ABG pO2 61 L ABG pO2 113.9 H ABG HCO3 37.2 H ABG Base Excess 9.1 H ABG Hemoglobin 11.1 L Oxyhemoglobin Potassium Chloride Carbon Dioxide BUN Creatinine Glucose POC Glucose Magnesium Free T4 04/14/19 04/14/19 04/14/19 04:43 05:45 12:35 WBC MCH RDW Seg Neuts % (Manual) Lymphocytes % (Manual) Seg Neutrophils # Man Lymphocytes # (Manual) POC ABG pH ABG pH POC ABG pCO2 69.3 H POC ABG pO2 ABG pO2 ABG HCO3 39.7 H ABG Base Excess 11.9 H ABG Hemoglobin 9.8 L Oxyhemoglobin 94.8 L Potassium 5.1 H Chloride 94.9 L Carbon Dioxide 38 H BUN Creatinine 0.6 L Glucose 177 H POC Glucose Magnesium Free T4 04/15/19 04/15/19 04/15/19 04:57 04:57 07:44 WBC MCH 27 L RDW 16.8 H Seg Neuts % (Manual) 87.0 H Lymphocytes % (Manual) 10.0 L Seg Neutrophils # Man 8.5 H Lymphocytes # (Manual) 1.0 L POC ABG pH ABG pH POC ABG pCO2 POC ABG pO2 ABG pO2 ABG HCO3 ABG Base Excess ABG Hemoglobin Oxyhemoglobin Potassium Chloride 93.4 L Carbon Dioxide 35 H BUN 24 H Creatinine Glucose 205 H POC Glucose 192 H Magnesium Free T4 04/15/19 04/15/19 04/15/19 10:32 11:19 16:15 WBC MCH RDW Seg Neuts % (Manual) Lymphocytes % (Manual) Seg Neutrophils # Man Lymphocytes # (Manual) POC ABG pH ABG pH POC ABG pCO2 69.5 H POC ABG pO2 77 L ABG pO2 ABG HCO3 ABG Base Excess ABG Hemoglobin Oxyhemoglobin Potassium Chloride Carbon Dioxide BUN Creatinine Glucose POC Glucose 251 H 185 H Magnesium Free T4 04/15/19 04/16/19 04/16/19 22:18 04:50 04:50 WBC MCH 27 L RDW 17.1 H Seg Neuts % (Manual) 91.0 H Lymphocytes % (Manual) 7.0 L Seg Neutrophils # Man 8.7 H Lymphocytes # (Manual) 0.7 L POC ABG pH ABG pH POC ABG pCO2 POC ABG pO2 ABG pO2 ABG HCO3 ABG Base Excess ABG Hemoglobin Oxyhemoglobin Potassium Chloride 93.0 L Carbon Dioxide 35 H BUN 25 H Creatinine 0.6 L Glucose 200 H POC Glucose 223 H Magnesium 2.50 H Free T4 04/16/19 04/16/19 04/17/19 07:42 11:49 04:49 WBC MCH 27 L RDW 16.7 H Seg Neuts % (Manual) 92.0 H Lymphocytes % (Manual) 2.0 L Seg Neutrophils # Man 8.9 H Lymphocytes # (Manual) 0.2 L POC ABG pH ABG pH POC ABG pCO2 POC ABG pO2 ABG pO2 ABG HCO3 ABG Base Excess ABG Hemoglobin Oxyhemoglobin Potassium Chloride Carbon Dioxide BUN Creatinine Glucose POC Glucose 184 H 197 H Magnesium Free T4 04/17/19 04/18/19 04:49 15:12 WBC MCH RDW Seg Neuts % (Manual) Lymphocytes % (Manual) Seg Neutrophils # Man Lymphocytes # (Manual) POC ABG pH ABG pH POC ABG pCO2 POC ABG pO2 ABG pO2 ABG HCO3 ABG Base Excess ABG Hemoglobin Oxyhemoglobin Potassium Chloride 95.8 L Carbon Dioxide BUN 29 H Creatinine Glucose 234 H POC Glucose Magnesium Free T4 0.67 L
--- NOTE | 2019-04-20 14:26 | Discharge Summary ---
Providers - Providers Date of Admission: 04/13/19 15:02 Date of discharge: 04/20/19 Attending physician: DENISE MARTINEZ 04/13/19 13:57 Consult to Physician [CONS] Urgent Comment: Consulting Provider: IVIS CROOKS Physician Instructions: Reason For Exam: resp failure 04/18/19 02:13 Consult to Physician [CONS] Routine Comment: Consulting Provider: JOSE ANTONIO FRIEND Physician Instructions: Reason For Exam: abn ekg, tachycardia Primary care physician: HEAD BANQUET WAITRESS Hospitalization Condition: Fair Hospital course: 63 YO Female with Obesity Hypoventilation, Chronic Respiratory Failure, CAD, HTN presented to ED for evaluation. She was unable to speak in complete sentences, and using accessory muscles to breathe. As per son at bedside , she experienced shortness of breath, cough over the past 3 days with progressively worsening symptoms over the same time frame. She was seen and evaluated in ED and found to have Acute on Chronic respiratory Failure secondary to COPD exacerbation. Pt symptoms not improved with supplemental oxygen, and nebulizer therapy. She was put on BIPAP, given solumedrol and admitted to IMCU. She improved, was transferred to [facility]. Acute on chronic hypoxic respiratory failure. Etiology secondary to COPD exacerbation, MEME and OHS. Treated with BiPAP, steroids, supplemental Oxygen. Seen by Pulm during stay Acute severe COPD exacerbation. IV antibiotic therapy, IV steroid therapy, pulse oximetry, nebulizer therapy Atrial tachycardia episodes Cardiology was ollowing Acute bronchitis. Continue Levaquin. Obesity hypoventilation syndrome. Hypertension. Continue antihypertensive medications. total time spent on discharge, 34 mins Disposition: [id number] HOME UNDER [facility] - Discharge Diagnoses (1) Acute and chronic respiratory failure ([id number]) Status: Acute Qualifiers: Respiratory failure complication: unspecified whether with hypoxia or hypercapnia Qualified Code(s): J96.20 - Acute and chronic respiratory failure, unspecified whether with hypoxia or hypercapnia (2) HTN (hypertension) Status: Acute (3) COPD with exacerbation Status: Chronic (4) Atrial tachycardia Status: Acute Core Measure Documentation - Palliative Care Palliative Care/ Comfort Measures: Not Applicable - Core Measures Any of the following diagnoses?: none Exam - Constitutional Vitals: Temp Pulse Resp BP Pulse Ox 98.7 F 81 18 149/78 93 04/20/19 12:03 04/20/19 12:03 04/20/19 12:03 04/20/19 12:03 04/20/19 12:03 Plan Activity: no restrictions Diet: low fat, low cholesterol, low salt Plan of Treatment: 1.Follow up with PCP in 1 week. 2.Follow up with [employer] in 1 week. 3.Follow up with Dr. Elkins on 04/28/19 at 3 pm 4.Continue home ventilator at night and prn Follow up with: NICKY ELKINS MD [Staff Physician] - 7 Days PRIMARY CARE, [Primary Care Provider] - 3-5 Days Prescriptions: predniSONE [Deltasone] 10 mg PO QDAY 3 Days tab
--- NOTE | 2019-04-20 15:38 | Progress Note ---
Assessment and Plan Atrial tachycardia, paroxysmal uncertain if the tachycardias are triggered by albuterol bronchodilator treatments. currently in sinus rhythm; on Diltiazem for suppression Chronic respiratory failure COPD exacerbation on home O2 Chronic tobacco abuse Chronic anxiety 2014 cardiac catheterization demonstrated no significant coronary artery disease. Ejection fraction 60% Continue diltiazem for management of atrial tachyarrhythmias. Recommend long acting form on discharge. Stable cardiac gomez. Patient will follow up in our office at 3pm. Subjective Date of service: 04/20/19 Principal diagnosis: COPD Interval history: Patient is resting in bed comfortably. No distress noted. Stable sinus rhythm on telemetry. No cardiac events reported overnight. For planned discharge today. Objective Vital Signs Temp Pulse Pulse Resp Resp Resp BP 04/20/19 12:03 98.7 F 81 18 149/78 04/20/19 10:34 84 04/20/19 10:00 20 18 04/20/19 09:18 72 22 04/20/19 08:50 04/20/19 08:45 98.7 F 93 H 18 151/59 04/20/19 08:00 65 18 04/20/19 07:29 20 04/20/19 04:10 97.8 F 75 16 140/66 04/20/19 00:39 80 04/19/19 23:26 97.8 F 79 22 162/67 04/19/19 22:45 72 18 04/19/19 20:45 04/19/19 20:20 60 18 04/19/19 20:18 72 18 04/19/19 19:44 98.3 F 89 19 166/76 04/19/19 19:22 89 04/19/19 19:13 89 04/19/19 19:00 101 H 04/19/19 17:40 97.9 F 18 169/74 04/19/19 16:00 60 18 166/76 Pulse Ox 04/20/19 12:03 93 04/20/19 10:34 04/20/19 10:00 98 04/20/19 09:18 04/20/19 08:50 96 04/20/19 08:45 94 04/20/19 08:00 04/20/19 07:29 04/20/19 04:10 97 04/20/19 00:39 04/19/19 23:26 94 04/19/19 22:45 94 04/19/19 20:45 95 04/19/19 20:20 95 04/19/19 20:18 04/19/19 19:44 95 04/19/19 19:22 04/19/19 19:13 04/19/19 19:00 04/19/19 17:40 04/19/19 16:00 95 - Physical Examination General: No Apparent Distress HEENT: Positive: PERRL Neck: Positive: trachea midline Cardiac: Positive: Reg Rate and Rhythm Lungs: Positive: Decreased Breath Sounds Neuro: Positive: Grossly Intact
--- NOTE | 2019-04-20 16:42 | Progress Note ---
Assessment and Plan Assessment and plan: Acute on chronic hypoxic respiratory failure. Etiology secondary to COPD exacerbation, MEME and OHS. Continue BiPAP as clinically indicated. Keep nothing by mouth for now. Pulmonary following. Steroid taper per pulmonary. Acute severe COPD exacerbation. IV antibiotic therapy, IV steroid therapy, pulse oximetry, nebulizer therapy Atrial tachycardia episodes Cardiology following Acute bronchitis. Continue Levaquin. Obesity hypoventilation syndrome. Hypertension. Continue antihypertensive medications. History Interval history: Less shortness of breath Palpitations Hospitalist Physical - Physical exam Narrative exam: Gen: Not in acute distress, lying in bed, HEENT: Normocephalic, atraumatic Neck: supple, no JVD Heart: S1 and S2 irreg, no murmurs, rubs or gallop Lungs: Bilateral rhonchi, wheeze, decreased breath sounds Abd: soft, NT, non distended, normal BS Ext: Bilateral lower ext edema no clubbing, no cyanosis Neuro:Awake,alert, oriented X 3, moves all ext - Constitutional Vitals: Temp Pulse Resp BP Pulse Ox 98.7 F 81 18 149/78 93 04/20/19 12:03 04/20/19 12:03 04/20/19 12:03 04/20/19 12:03 04/20/19 12:03 Results - Labs CBC & Chem 7: 04/17/19 04:49 04/17/19 04:49 Labs: Laboratory Last Values WBC 9.7 K/mm3 (4.5-11.0) 04/17/19 04:49 RBC 4.12 M/mm3 (3.65-5.03) 04/17/19 04:49 Hgb 11.2 gm/dl (10.1-14.3) 04/17/19 04:49 Hct 34.7 % (30.3-42.9) 04/17/19 04:49 MCV 84 fl (79-97) 04/17/19 04:49 MCH 27 pg (28-32) L 04/17/19 04:49 MCHC 32 % (30-34) 04/17/19 04:49 RDW 16.7 % (13.2-15.2) H 04/17/19 04:49 Plt Count 302 K/mm3 (140-440) 04/17/19 04:49 Add Manual Diff Complete 04/17/19 04:49 Total Counted 100 04/17/19 04:49 Seg Neutrophils % Glued Wood Tester 04/17/19 04:49 Seg Neuts % (Manual) 92.0 % (40.0-70.0) H 04/17/19 04:49 Band Neutrophils % 0 % 04/17/19 04:49 Lymphocytes % (Manual) 2.0 % (13.4-35.0) L 04/17/19 04:49 Reactive Lymphs % (Man) 0 % 04/17/19 04:49 Monocytes % (Manual) 3.0 % (0.0-7.3) 04/17/19 04:49 Eosinophils % (Manual) 0 % (0.0-4.3) 04/17/19 04:49 Basophils % (Manual) 0 % (0.0-1.8) 04/17/19 04:49 Metamyelocytes % 3.0 % 04/17/19 04:49 Myelocytes % 0 % 04/17/19 04:49 Promyelocytes % 0 % 04/17/19 04:49 Blast Cells % 0 % 04/17/19 04:49 Nucleated RBC % Not Reportable 04/17/19 04:49 Seg Neutrophils # Man 8.9 K/mm3 (1.8-7.7) H 04/17/19 04:49 Band Neutrophils # 0.0 K/mm3 04/17/19 04:49 Lymphocytes # (Manual) 0.2 K/mm3 (1.2-5.4) L 04/17/19 04:49 Abs React Lymphs (Man) 0.0 K/mm3 04/17/19 04:49 Monocytes # (Manual) 0.3 K/mm3 (0.0-0.8) 04/17/19 04:49 Eosinophils # (Manual) 0.0 K/mm3 (0.0-0.4) 04/17/19 04:49 Basophils # (Manual) 0.0 K/mm3 (0.0-0.1) 04/17/19 04:49 Metamyelocytes # 0.3 K/mm3 04/17/19 04:49 Myelocytes # 0.0 K/mm3 04/17/19 04:49 Promyelocytes # 0.0 K/mm3 04/17/19 04:49 Blast Cells # 0.0 K/mm3 04/17/19 04:49 WBC Morphology Not Reportable 04/17/19 04:49 Hypersegmented Neuts Not Reportable 04/17/19 04:49 Hyposegmented Neuts Not Reportable 04/17/19 04:49 Hypogranular Neuts Not Reportable 04/17/19 04:49 Smudge Cells Not Reportable 04/17/19 04:49 Toxic Granulation Not Reportable 04/17/19 04:49 Toxic Vacuolation Not Reportable 04/17/19 04:49 Dohle Bodies Not Reportable 04/17/19 04:49 Pelger-Huet Anomaly Not Reportable 04/17/19 04:49 Basilia Rods Not Reportable 04/17/19 04:49 Platelet Estimate Consistent w auto 04/17/19 04:49 Clumped Platelets Not Reportable 04/17/19 04:49 Plt Clumps, EDTA Not Reportable 04/17/19 04:49 Large Platelets Few 04/17/19 04:49 Giant Platelets Not Reportable 04/17/19 04:49 Platelet Satelliting Not Reportable 04/17/19 04:49 Plt Morphology Comment Not Reportable 04/17/19 04:49 RBC Morphology Not Reportable 04/17/19 04:49 Dimorphic RBCs Not Reportable 04/17/19 04:49 Polychromasia Not Reportable 04/17/19 04:49 Hypochromasia Not Reportable 04/17/19 04:49 Poikilocytosis Not Reportable 04/17/19 04:49 Anisocytosis 1+ 04/17/19 04:49 Microcytosis Not Reportable 04/17/19 04:49 Macrocytosis Not Reportable 04/17/19 04:49 Spherocytes Not Reportable 04/17/19 04:49 Pappenheimer Bodies Not Reportable 04/17/19 04:49 Sickle Cells Not Reportable 04/17/19 04:49 Target Cells Not Reportable 04/17/19 04:49 Tear Drop Cells Not Reportable 04/17/19 04:49 Ovalocytes Not Reportable 04/17/19 04:49 Stomatocytes Few 04/16/19 04:50 Helmet Cells Not Reportable 04/17/19 04:49 [place] Bodies Not Reportable 04/17/19 04:49 [place] Rings Not Reportable 04/17/19 04:49 Zachary Cells Not Reportable 04/17/19 04:49 Bite Cells Not Reportable 04/17/19 04:49 Crenated Cell Not Reportable 04/17/19 04:49 Elliptocytes Not Reportable 04/17/19 04:49 Acanthocytes (Spur) Not Reportable 04/17/19 04:49 Rouleaux Not Reportable 04/17/19 04:49 Hemoglobin C Crystals Not Reportable 04/17/19 04:49 Schistocytes Not Reportable 04/17/19 04:49 Malaria parasites Not Reportable 04/17/19 04:49 Ronak Bodies Not Reportable 04/17/19 04:49 Hem Pathologist Commnt No 04/17/19 04:49 PT 12.5 Sec. (12.2-14.9) 04/13/19 14:10 INR 0.92 (0.87-1.13) 04/13/19 14:10 APTT 34.1 Sec. (24.2-36.6) 04/13/19 14:10 POC ABG pH 7.387 (7.35-7.45) 04/15/19 11:19 ABG pH 7.350 pH Units (7.350-7.450) 04/14/19 05:45 POC ABG pCO2 69.5 (35-45) H 04/15/19 11:19 ABG pCO2 73.6 mm Hg 04/14/19 05:45 POC ABG pO2 77 (80-105) L 04/15/19 11:19 ABG pO2 89.2 mm Hg (80.0-90.0) 04/14/19 05:45 POC ABG HCO3 41.8 (22-26 mml/L) 04/15/19 11:19 ABG HCO3 39.7 mmol/L (20.0-26.0) H 04/14/19 05:45 POC ABG Total CO2 44 (23-27mmol/L) 04/15/19 11:19 POC ABG O2 Sat 94 04/15/19 11:19 ABG O2 Saturation 97.0 % (95.0-99.0) 04/14/19 05:45 ABG O2 Content 13.2 (0.0-44) 04/14/19 05:45 POC ABG Base Excess 17 ((-2) - (+3)mmol/L) 04/15/19 11:19 ABG Base Excess 11.9 mmol/L (-2.0-3.0) H 04/14/19 05:45 ABG Hemoglobin 9.8 gm/dl (12.0-16.0) L 04/14/19 05:45 ABG Carboxyhemoglobin 1.8 % (0.0-5.0) 04/14/19 05:45 ABG Methemoglobin 0.5 % (0.0-1.5) 04/14/19 05:45 Oxyhemoglobin 94.8 % (95.0-99.0) L 04/14/19 05:45 FiO2 30 % 04/15/19 11:19 Sodium 142 mmol/L (137-145) 04/17/19 04:49 Potassium 4.3 mmol/L (3.6-5.0) 04/17/19 04:49 Chloride 95.8 mmol/L (98-107) L 04/17/19 04:49 Carbon Dioxide 30 mmol/L (22-30) 04/17/19 04:49 Anion Gap 21 mmol/L 04/17/19 04:49 BUN 29 mg/dL (7-17) H 04/17/19 04:49 Creatinine 0.7 mg/dL (0.7-1.2) 04/17/19 04:49 Estimated GFR > 60 ml/min 04/17/19 04:49 BUN/Creatinine Ratio 41 % 04/17/19 04:49 Glucose 234 mg/dL (65-100) H 04/17/19 04:49 POC Glucose 197 (70-105) H 04/16/19 11:49 Calcium 8.7 mg/dL (8.4-10.2) 04/17/19 04:49 Magnesium 2.50 mg/dL (1.7-2.3) H 04/16/19 04:50 TSH 0.416 mlU/mL (0.270-4.200) 04/18/19 15:12 Free T4 0.67 ng/dL (0.76-1.46) L 04/18/19 15:12 Active Medications - Current Medications Current Medications: Generic Name Dose Route Start Last Admin Trade Name Freq PRN Reason Stop Dose Admin Acetaminophen 650 mg 04/17/19 19:36 04/20/19 06:29 Tylenol PO 650 mg Q6H PRN Administration Headache Albuterol 2.5 mg 04/13/19 15:02 04/13/19 18:32 Proventil IH 2.5 mg Q3HRT PRN Administration Shortness Of Breath Arformoterol Tartrate 15 mcg 04/13/19 20:00 04/20/19 08:47 Brovana Nebu IH 15 mcg Q12HRT NIYA Administration Aspirin 81 mg 04/14/19 10:00 04/20/19 09:34 Baby Aspirin PO 81 mg DAILY NIYA Administration Atorvastatin Calcium 10 mg 04/13/19 22:00 04/19/19 21:21 Atorvastatin PO 10 mg QHS NIYA Administration Budesonide 1 mg 04/13/19 23:55 04/20/19 08:48 Pulmicort IH 1 mg Q12HRT NIAY Administration Citalopram Hydrobromide 40 mg 04/14/19 10:00 04/20/19 09:34 Celexa PO 40 mg QDAY NIYA Administration Diltiazem HCl 60 mg 04/18/19 18:00 04/20/19 06:23 Cardizem PO 60 mg Q6HR NIYA Administration Docusate Sodium 100 mg 04/16/19 22:00 04/20/19 09:34 Colace PO 100 mg BID NIYA Administration Enoxaparin Sodium 40 mg 04/15/19 22:59 04/19/19 21:20 Enoxaparin SUB-Q 40 mg QDAY@2200 NIYA Administration Guaifenesin 1,200 mg 04/13/19 22:00 04/20/19 09:34 Mucinex Er PO 1,200 mg BID NIYA Administration Latanoprost 1 drops 04/16/19 22:00 04/19/19 21:20 Latanoprost 0.005% OU 1 drops QHS NIYA Administration Lorazepam 1 mg 04/13/19 17:41 04/20/19 09:34 Ativan IV 1 mg Q8H PRN Administration Anxiety Methylprednisolone Sodium Succinate 60 mg 04/20/19 10:00 04/20/19 09:36 Solu-Medrol IV 60 mg Q24HR NIYA Administration Mirtazapine 15 mg 04/13/19 22:00 04/19/19 21:21 Remeron PO 15 mg QHS NIYA Administration Multivitamins 1 each 04/14/19 10:00 04/20/19 09:33 Theragran Tab PO 1 each DAILY NIYA Administration Senna 8.6 mg 04/16/19 19:48 04/18/19 22:04 Senokot PO 8.6 mg Q12H PRN Administration Laxative Effect Sodium Chloride 10 ml 04/13/19 22:00 04/20/19 09:36 Sodium Chloride Flush Syringe 10 Ml IV 10 ml BID NIYA Administration Sodium Chloride 10 ml 04/13/19 15:02 Sodium Chloride Flush Syringe 10 Ml IV PRN PRN LINE FLUSH Thiamine HCl 100 mg 04/13/19 22:00 04/20/19 09:34 Vitamin B-1 PO 100 mg BID NIYA Administration Nutrition/Malnutrition Assess - Dietary Evaluation Nutrition/Malnutrition Findings: Nutrition Notes Start: 04/20/19 12:42 Freq: Status: Active Protocol: Document 04/20/19 12:42 PS (Rec: 04/20/19 13:22 PS [id number]) Co-Sign 04/20/19 12:42 LP Nutrition Notes Need for Assessment generated from: LOS Initial or Follow up Assessment Current Diagnosis COPD,Hypertension,Respiratory Failure Other Pertinent Diagnosis Obesity Hypoventilation Current Diet Regular Labs/Tests No Current Labs Pertinent Medications Remeron Height 5 ft 8 in Weight 79 kg [place] Body Weight (kg) 63.63 BMI 26.4 Intake Prior to Admission Good Weight Status Appropriate Subjective/Other Information Pt. stated she was eating 50- 75% of her meals while at the hospital d/t food odering difficulties and food preferences. Pt. stated she has had no wt loss, but requested ensure clear mixed rueda. Burn Absent Trauma Absent GI Symptoms None Current % PO Fair (50-74%) Minimum of two criteria No #1 Nutrition Diagnosis Inadequate oral intake Etiology pt not able to order food and food dislikes As Evidenced by Signs and Symptoms pt. stating she has been eating 50-75% of food Is patient on ventilator? No Is Patient Ambulatory and/or Out of Bed Yes [facility]OOB) [ 1811.550 [id number]] [facility] Additional [facility] Pro: 63 - 79 g (0.8-1 g/kg) Fluid: 1 ml/kcal per MD Nutrition Intervention Change Diet Order: Continue Current Diet Add Supplement/Snack (indicate name/kcal Ensure Clear Mixed Rueda /protein ) Provides kCal: 240 Provides Protein (gm) 8 Goal #1 Meet 75% of energy/protein needs Anticipated Discharge Needs: Regular Diet Follow-Up By: 04/27/19 Additional Comments F/U for PO/ONS intakes
[2019-04-20] MEDS: ENOXAPARIN 40 MG/0.4 ML INJ SUB-Q SCH (21:34)
[2019-04-20] MEDS: MIRTAZAPINE 15 MG TAB PO SCH (21:34)
[2019-04-20] MEDS: LATANOPROST 0.005% OPHTH SOLN 2.5 ML OU SCH (21:35)
[2019-04-21] MEDS: dilTIAZem 60 MG TAB PO SCH ×2 (06:22→11:56)
[2019-04-21] MEDS: ARFORMOTEROL 15 MCG/2 ML NEBU IH SCH (07:54)
[2019-04-21] MEDS: BUDESONIDE 0.5 MG/2 ML NEBU IH SCH (07:54)
[2019-04-21] MEDS: methylPREDNISolone Sod Succinate 40 MG/1 ML INJ IV SCH (09:08)
[2019-04-21] MEDS: guaiFENesin ER 600 MG TAB PO SCH (09:09)
[2019-04-21] MEDS: CITALOPRAM 20 MG TAB PO SCH (09:09)
[2019-04-21] MEDS: MULTIVITAMINS ,THERAPEUTIC TAB PO SCH (09:09)
[2019-04-21] MEDS: DOCUSATE SODIUM 100 MG CAP PO SCH (09:09)
[2019-04-21] MEDS: THIAMINE 100 MG TAB PO SCH (09:10)
[2019-04-21] MEDS: ASPIRIN 81 MG TAB CHEW PO SCH (09:10)
--- NOTE | 2019-04-21 09:18 | Progress Note ---
Assessment and Plan Atrial tachycardia, paroxysmal uncertain if the tachycardias are triggered by albuterol bronchodilator treatments. currently in sinus rhythm; on Diltiazem for suppression Chronic respiratory failure COPD exacerbation on home O2 Chronic tobacco abuse Chronic anxiety 2014 cardiac catheterization demonstrated no significant coronary artery disease. Ejection fraction 60% Continue diltiazem for management of atrial tachyarrhythmias. Stable cardiac gomez. Patient will follow up in our office at 3pm. Subjective Date of service: 04/21/19 Principal diagnosis: COPD Interval history: Patient is resting in bed comfortably. No distress noted. Stable sinus rhythm on telemetry. No cardiac events reported overnight. Objective Vital Signs Temp Pulse Pulse Resp Resp Resp BP 04/21/19 07:55 102 H 22 04/21/19 04:18 97.7 F 78 16 162/80 04/21/19 04:00 83 22 04/21/19 02:00 90 04/20/19 23:27 97.5 F L 94 H 12 156/83 04/20/19 22:00 22 04/20/19 21:02 97.4 F L 106 H 20 137/83 04/20/19 20:27 04/20/19 20:25 99 H 18 04/20/19 20:23 102 H 22 04/20/19 18:44 110 H 130/78 04/20/19 16:32 98.4 F 113 H 19 127/64 04/20/19 12:03 98.7 F 81 18 149/78 04/20/19 12:00 90 04/20/19 10:34 84 04/20/19 10:00 20 18 04/20/19 09:18 72 22 Pulse Ox 04/21/19 07:55 04/21/19 04:18 96 04/21/19 04:00 96 04/21/19 02:00 04/20/19 23:27 95 04/20/19 22:00 98 04/20/19 21:02 96 04/20/19 20:27 94 04/20/19 20:25 94 04/20/19 20:23 04/20/19 18:44 04/20/19 16:32 92 04/20/19 12:03 93 04/20/19 12:00 04/20/19 10:34 04/20/19 10:00 98 04/20/19 09:18 - Physical Examination General: No Apparent Distress HEENT: Positive: PERRL Neck: Positive: trachea midline Cardiac: Positive: Reg Rate and Rhythm Lungs: Positive: Decreased Breath Sounds Neuro: Positive: Grossly Intact
[2019-04-21] MEDS ORDERED: LORazepam 1 MG TAB PO ONE (12:00)
--- NOTE | 2019-04-21 12:13 | Progress Note ---
Assessment and Plan 63 y/o female with chronic respiratory hypercapnic respiratory failure with worsening dyspnea, most likely secondary to acute bronchitis No new recs from a pulmonary standpoint. 1. Still recommend a total of 7 days of abx (total), this can be finished as an outpatient. 2. Changed to solumedrol 60 daily, at discharge switch to Pred 40 and taper over two weeks in 3 day intervals dropping buy 10mg each interval 3. Continue PPV at night and when sleeping (PRN) 4. No objection to discharge. Will see as needed. Subjective Date of service: 04/21/19 Principal diagnosis: COPD Interval history: No acute events. Not discharged as son requested PT consult. Objective Vital Signs - 12hr 04/21/19 04/21/19 04/21/19 02:00 04:00 04:18 Temperature 97.7 F Pulse Rate 90 83 78 Pulse Rate [ Anterior Bilateral Throughout] Respiratory 22 16 Rate Respiratory Rate [Anterior Bilateral Throughout] Respiratory Rate [denies] Blood Pressure 162/80 O2 Sat by Pulse 96 96 Oximetry 04/21/19 04/21/19 04/21/19 07:55 09:19 10:00 Temperature 98.7 F Pulse Rate 98 H 84 Pulse Rate [ 102 H Anterior Bilateral Throughout] Respiratory 18 20 Rate Respiratory 22 Rate [Anterior Bilateral Throughout] Respiratory 20 Rate [denies] Blood Pressure 148/61 O2 Sat by Pulse 97 97 Oximetry 04/21/19 11:56 Temperature Pulse Rate 100 H Pulse Rate [ Anterior Bilateral Throughout] Respiratory Rate Respiratory Rate [Anterior Bilateral Throughout] Respiratory Rate [denies] Blood Pressure 136/80 O2 Sat by Pulse Oximetry Constitutional: no acute distress, alert Eyes: non-icteric ENT: oropharynx moist Neck: supple Effort: mildly labored Ascultation: Bilateral: diminished breath sounds, wheezes Percussion: Bilateral: not dull Tactile fremitus: Bilateral: normal Cardiovascular: regular rate and rhythm (no mrg) Gastrointestinal: normoactive bowel sounds, soft, non-tender, non-distended Integumentary: normal Extremities: no edema, pink and warm, pulses normal Neurologic: normal mental status, non-focal exam, pupils equal and round, CN II- XII normal Psychiatric: mood appropriate, affect normal CBC and BMP: 04/17/19 04:49 04/17/19 04:49 ABG, PT/INR, D-dimer: ABG POC ABG pH 7.387 (7.35-7.45) 04/15/19 11: ABG pH 7.350 pH Units (7.350-7.450) 04/14/19 05:45 POC ABG pCO2 69.5 (35-45) H 04/15/19 11: ABG pCO2 73.6 mm Hg 04/14/19 05:45 POC ABG pO2 77 (80-105) L 04/15/19 11: ABG pO2 89.2 mm Hg (80.0-90.0) 04/14/19 05:45 POC ABG HCO3 41.8 (22-26 mml/L) 04/15/19 11:19 POC ABG Total CO2 44 (23-27mmol/L) 04/15/19 11:19 POC ABG O2 Sat 94 04/15/19 11: ABG O2 Saturation 97.0 % (95.0-99.0) 04/14/19 05:45 PT/INR, D-dimer PT 12.5 Sec. (12.2-14.9) 04/13/19 14:10 INR 0.92 (0.87-1.13) 04/13/19 14:10 Abnormal lab findings: Abnormal Labs 04/13/19 04/13/19 04/13/19 12:47 14:10 14:10 WBC 13.7 H MCH 27 L RDW 16.9 H Seg Neuts % (Manual) 88.0 H Lymphocytes % (Manual) 2.0 L Seg Neutrophils # Man 12.1 H Lymphocytes # (Manual) 0.3 L POC ABG pH 7.313 L ABG pH POC ABG pCO2 POC ABG pO2 70 L ABG pO2 ABG HCO3 ABG Base Excess ABG Hemoglobin Oxyhemoglobin Potassium Chloride 93.6 L Carbon Dioxide 33 H BUN Creatinine Glucose 182 H POC Glucose Magnesium 2.90 H Free T4 04/13/19 04/13/19 04/14/19 18:26 21:30 04:43 WBC MCH 27 L RDW 16.7 H Seg Neuts % (Manual) 97.0 H Lymphocytes % (Manual) 1.0 L Seg Neutrophils # Man Lymphocytes # (Manual) 0.1 L POC ABG pH 7.298 L ABG pH 7.333 L POC ABG pCO2 POC ABG pO2 61 L ABG pO2 113.9 H ABG HCO3 37.2 H ABG Base Excess 9.1 H ABG Hemoglobin 11.1 L Oxyhemoglobin Potassium Chloride Carbon Dioxide BUN Creatinine Glucose POC Glucose Magnesium Free T4 04/14/19 04/14/19 04/14/19 04:43 05:45 12:35 WBC MCH RDW Seg Neuts % (Manual) Lymphocytes % (Manual) Seg Neutrophils # Man Lymphocytes # (Manual) POC ABG pH ABG pH POC ABG pCO2 69.3 H POC ABG pO2 ABG pO2 ABG HCO3 39.7 H ABG Base Excess 11.9 H ABG Hemoglobin 9.8 L Oxyhemoglobin 94.8 L Potassium 5.1 H Chloride 94.9 L Carbon Dioxide 38 H BUN Creatinine 0.6 L Glucose 177 H POC Glucose Magnesium Free T4 04/15/19 04/15/19 04/15/19 04:57 04:57 07:44 WBC MCH 27 L RDW 16.8 H Seg Neuts % (Manual) 87.0 H Lymphocytes % (Manual) 10.0 L Seg Neutrophils # Man 8.5 H Lymphocytes # (Manual) 1.0 L POC ABG pH ABG pH POC ABG pCO2 POC ABG pO2 ABG pO2 ABG HCO3 ABG Base Excess ABG Hemoglobin Oxyhemoglobin Potassium Chloride 93.4 L Carbon Dioxide 35 H BUN 24 H Creatinine Glucose 205 H POC Glucose 192 H Magnesium Free T4 04/15/19 04/15/19 04/15/19 10:32 11:19 16:15 WBC MCH RDW Seg Neuts % (Manual) Lymphocytes % (Manual) Seg Neutrophils # Man Lymphocytes # (Manual) POC ABG pH ABG pH POC ABG pCO2 69.5 H POC ABG pO2 77 L ABG pO2 ABG HCO3 ABG Base Excess ABG Hemoglobin Oxyhemoglobin Potassium Chloride Carbon Dioxide BUN Creatinine Glucose POC Glucose 251 H 185 H Magnesium Free T4 04/15/19 04/16/19 04/16/19 22:18 04:50 04:50 WBC MCH 27 L RDW 17.1 H Seg Neuts % (Manual) 91.0 H Lymphocytes % (Manual) 7.0 L Seg Neutrophils # Man 8.7 H Lymphocytes # (Manual) 0.7 L POC ABG pH ABG pH POC ABG pCO2 POC ABG pO2 ABG pO2 ABG HCO3 ABG Base Excess ABG Hemoglobin Oxyhemoglobin Potassium Chloride 93.0 L Carbon Dioxide 35 H BUN 25 H Creatinine 0.6 L Glucose 200 H POC Glucose 223 H Magnesium 2.50 H Free T4 04/16/19 04/16/19 04/17/19 07:42 11:49 04:49 WBC MCH 27 L RDW 16.7 H Seg Neuts % (Manual) 92.0 H Lymphocytes % (Manual) 2.0 L Seg Neutrophils # Man 8.9 H Lymphocytes # (Manual) 0.2 L POC ABG pH ABG pH POC ABG pCO2 POC ABG pO2 ABG pO2 ABG HCO3 ABG Base Excess ABG Hemoglobin Oxyhemoglobin Potassium Chloride Carbon Dioxide BUN Creatinine Glucose POC Glucose 184 H 197 H Magnesium Free T4 04/17/19 04/18/19 04:49 15:12 WBC MCH RDW Seg Neuts % (Manual) Lymphocytes % (Manual) Seg Neutrophils # Man Lymphocytes # (Manual) POC ABG pH ABG pH POC ABG pCO2 POC ABG pO2 ABG pO2 ABG HCO3 ABG Base Excess ABG Hemoglobin Oxyhemoglobin Potassium Chloride 95.8 L Carbon Dioxide BUN 29 H Creatinine Glucose 234 H POC Glucose Magnesium Free T4 0.67 L
--- NOTE | 2019-04-21 14:20 | Event Note ---
Date: 04/21/19 Patient stable to go home today. I have seen and examined her.
[2019-04-21 15:31] VITALS: BP 134/78
== END 2019-04-21 14:00 | disposition home health service (06) | DRG 189 ==
LOC: ED 12:03 → IMCU 15:02 → 4A 04-18 16:18
PROVIDERS: ADMIT Internal Medicine; ATTEND Internal Medicine
PROC: 4A033R1 Measurement of Arterial Saturation, Peripheral, Percutaneous Approach (ICD-10-PCS; principal; 2019-04-13)
PROC: 5A09357 Assistance with Respiratory Ventilation, Less than 24 Consecutive Hours, Continuous Positive Airway Pressure (ICD-10-PCS; 2019-04-13)
PROC: 5A09357 Assistance with Respiratory Ventilation, Less than 24 Consecutive Hours, Continuous Positive Airway Pressure (ICD-10-PCS; 2019-04-14)
PROC: 5A09357 Assistance with Respiratory Ventilation, Less than 24 Consecutive Hours, Continuous Positive Airway Pressure (ICD-10-PCS; 2019-04-15)
PROC: 5A09357 Assistance with Respiratory Ventilation, Less than 24 Consecutive Hours, Continuous Positive Airway Pressure (ICD-10-PCS; 2019-04-16)
PROC: 5A09357 Assistance with Respiratory Ventilation, Less than 24 Consecutive Hours, Continuous Positive Airway Pressure (ICD-10-PCS; 2019-04-17)
PROC: 5A09357 Assistance with Respiratory Ventilation, Less than 24 Consecutive Hours, Continuous Positive Airway Pressure (ICD-10-PCS; 2019-04-18)
PROC: 5A09357 Assistance with Respiratory Ventilation, Less than 24 Consecutive Hours, Continuous Positive Airway Pressure (ICD-10-PCS; 2019-04-19)
PROC: 5A09357 Assistance with Respiratory Ventilation, Less than 24 Consecutive Hours, Continuous Positive Airway Pressure (ICD-10-PCS; 2019-04-20)
PROC: 5A09357 Assistance with Respiratory Ventilation, Less than 24 Consecutive Hours, Continuous Positive Airway Pressure (ICD-10-PCS; 2019-04-21)
DX: J96.21 Acute and chronic respiratory failure with hypoxia (principal); E66.2 Morbid (severe) obesity with alveolar hypoventilation; J20.9 Acute bronchitis, unspecified; E87.5 Hyperkalemia; I25.10 Atherosclerotic heart disease of native coronary artery without angina pectoris; I10 Essential (primary) hypertension; J96.22 Acute and chronic respiratory failure with hypercapnia; R00.0 Tachycardia, unspecified; J43.2 Centrilobular emphysema; F17.200 Nicotine dependence, unspecified, uncomplicated; F41.9 Anxiety disorder, unspecified; Z99.81 Dependence on supplemental oxygen; Z90.49 Acquired absence of other specified parts of digestive tract; Z90.710 Acquired absence of both cervix and uterus; Z82.49 Family history of ischemic heart disease and other diseases of the circulatory system; Z79.82 Long term (current) use of aspirin; Z79.899 Other long term (current) drug therapy; Z68.26 Body mass index [BMI] 26.0-26.9, adult
CPT/HCPCS: 36415; 36600; 71045; 80048; 82803; 82962; 83735; 84439; 84443; 85007; 85025; 85610; 85730; 93005; 93010; 93306; 94640; 94660; 94760; 96365; G0378; A9270-GY; J1650; J1956; J2060; J2920; J2930; J3475; J7040